=== PATIENT | male | born 1955 | race Caucasian/White ===

== ENCOUNTER → 2021-04-19 08:52 | Outpatient (CLI) | payer MEDICARE, OTHER, SELFPAY ==
[2021-04-19 19:35] LABS: Add Manual Diff / Slide Review NO; Basophils Absolute Auto 0 /uL (0-100); Basophils Percent Auto 0.3 % (0-2); Eosinophils Absolute Auto 200 /uL (0-450); Eosinophils Percent Auto 2.4 % (2-4); Hematocrit 42.5 % (41-53); Hemoglobin 14.2 g/dL (13.5-17.5); Lymphocytes Absolute Auto 1700 /uL (1100-4500); Lymphocytes Percent Auto 22.5 % (25-40); Mean Corpuscular HGB Conc 33.5 % (30-36); Mean Corpuscular Hemoglobin 30.9 PG (26-34); Mean Corpuscular Volume 92.2 fL (80-100); Monocytes Absolute Auto 700 /uL (0-900); Monocytes Percent Auto 9.2 % (3-14); Neutrophils Absolute Auto 4900 /uL (1500-7000); Neutrophils Percent Auto 65.6 % (50-75); Platelet Count 307 X10^3/uL (150-400); Red Blood Cell Count 4.61 X10^6/uL (4.5-5.9); Red Cell Distribution Width 13.2 % (11.6-14.8); White Blood Cell Count 7.5 X10^3/uL (4.5-11.0)
[2021-04-19 19:40] LABS: Hemoglobin A1C% w Est Avg Glu 6.7 % (4.0-6.0)
[2021-04-19 19:53] LABS: Alanine Aminotransferase 38 IU/L (<50); Albumin 4.2 g/dL (3.5-5.0); Albumin Globulin Ratio 1.4 (1.0-2.8); Alkaline Phosphatase 62 U/L (38-126); Aspartate Aminotransferase 44 IU/L (17-59); BUN Creatinine Ratio 31.3 (6-22); Bilirubin Total 0.8 mg/dL (0.2-1.3); Blood Urea Nitrogen 26 mg/dL (9-20); Calcium 9.7 mg/dL (8.4-10.2); Carbon Dioxide 25 mmol/L (22-32); Chloride 101 mmol/L (98-107); Cholesterol 101 mg/dL (140-199); Estimated Glomerular Filt Rate > 60.0 mL/min (>60); Globulin 3.1 g/dL (1.7-4.1); Glucose 115 mg/dL (80-110); HDL Cholesterol 27 mg/dL (40-60); HEMOLYSIS 22 (0-50); LDL Cholesterol Calculated 41 mg/dL (<100); Sodium 136 mmol/L (137-145); Total Protein 7.3 g/dL (6.3-8.2); Triglycerides 163 mg/dL (35-150)
== END ==
PROVIDERS: PCP Family Medicine; Visit Provider Family Medicine
DX: E78.5 Hyperlipidemia, unspecified (principal); Z86.73 Personal history of transient ischemic attack (TIA), and cerebral infarction without residual deficits; R73.01 Impaired fasting glucose; I10 Essential (primary) hypertension
CPT/HCPCS: 80053; 80061; 83036; 85025

== ENCOUNTER 2025-07-13 10:16 | Inpatient (IN) | payer MEDICARE, OTHER, SELFPAY ==
[2025-07-13] VITALS (20 sets, daily range): BP systolic 96–131; BP diastolic 51–105; PULSE 85–93; RESP 18–36; TEMP 36.7–37; O2SAT 95–99; BMI 34.4
--- NOTE | 2025-07-13 10:23 | DI.CT.S_ITS ---
PROCEDURE: CT CHEST ABD PEL W CON INDICATIONS: Fall/trauma TECHNIQUE: After the administration of intravenous contrast, 5 mm thick sections acquired from the lung apices to the symphysis. 2.5 mm thick coronal and sagittal reformats were acquired. Additional 7 mm thick coronal maximum intensity projection (MIP) reformats acquired through the lungs. Optional 10-minute delayed imaging may be performed from the kidneys to the bladder. For radiation dose reduction, the following was used: automated exposure control, adjustment of mA and/or kV according to patient size. COMPARISON: None. FINDINGS: Image quality: Diagnostic. CHEST: Lower Neck: No enlarged lymph nodes. Thyroid: No thyroid nodules which require sonographic evaluation. Axillae: No enlarged lymph nodes. Chest Wall: No subcutaneous gas. Lungs and Pleura: No pulmonary contusions or lacerations. No acute airspace opacities. No pneumothorax or hemothorax. Mediastinum: No mediastinal hematomas. Heart size is normal. No pericardial effusion. Thoracic aorta and pulmonary arteries demonstrate normal size and enhancement. No mediastinal or hilar adenopathy. Esophagus is normal in caliber. No hiatal hernia. ABDOMEN: Liver: No lacerations. Gallbladder: No radiopaque gallstones or wall thickening. Biliary ducts: No biliary dilation. Pancreas: Homogenous enhancement. Spleen: Homogenous enhancement without laceration or hematoma. Adrenal Glands: Symmetric enhancement. Kidneys and Ureters: Symmetric enhancement. No hydronephrosis. No solid mass. No complex renal cystic lesion which requires follow up. Stomach and Bowel: Normal colonic caliber, without significant wall thickening. Peritoneum: No abnormal intraperitoneal fluid. No free air. Ventral Wall: No hernia. Abdominal Nodes: No retroperitoneal or mesenteric adenopathy by size criteria. Vessels: Aorta and inferior vena cava are normal in size. PELVIS: Pelvic Organs: Unremarkable. Bladder: Normal thickness. Pelvic Nodes: No enlarged lymph nodes. Miscellaneous: No inguinal hernias are seen. No evidence of trauma or inflammation to the right lower quadrant area of reported pain. Bones: Pelvic ring and hip joints appear intact. No displaced rib fractures. IMPRESSION: No evidence of traumatic injury to the chest, abdomen or pelvis. Dictated by: Artem Pimentel M.D. on 07/13/2025 at 11:53 Approved by: Artem Pimentel M.D. on 07/13/2025 at 11:56
--- NOTE | 2025-07-13 10:26 | EKG_ITS ---
[address] [address] Test Date: 2025-07-13 Pat Name: Wan Kenney Department: Room: A Gender: Male Entertainment Manager: EDDIE : [id number] Requested By: Order Number: [id number] Reading MD: Estevan Mason MD Measurements Intervals [place] Rate: 92 P: 35 [place]: 164 QRS: -5 QRSD: 82 T: 18 QT: 348 QTc: 430 Interpretive Statements Normal sinus rhythm Electronically Signed On 07-13-2025 16:27:18 PDT by Estevan Mason MD
--- NOTE | 2025-07-13 10:26 | ED.FALL ---
HPI - Fall General Chief Complaint: Trauma Stated Complaint: Fall last night,unknown downtime Time Seen by Provider: 07/13/25 10:23 History of Present Illness HPI Narrative: Modified trauma activated Primary survey A -airway intact B -equal breath sounds C -strong heart sounds D -no gross deformity E -patient in gown Patient log rolled in order to do examination of the spine and back. Patient has no neck pain. Denies any neck pain Blood sugar 106 by EMS. Patient brought in from [facility]. Last well known uncertain. Patient has history of stroke. Patient is awake alert oriented self and date of and year only. 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 Neighbor found him at his home. Ambulance brought him to local [facility] and was taken by boat to EMS waiting for him at the [facility]. patient has bruising extends related through extremities abdomen arms and legs. Denies any pain but when pressing on lower abdomen has tenderness. His brother is on way here for more history and information. Related Data Home Medications ?Medication ?Instructions ?Recorded ?Confirmed clopidogrel 75 mg tablet 75 mg PO DAILY 03/28/21 07/13/25 lisinopril 20 1 tab PO DAILY 03/28/21 07/13/25 mg-hydrochlorothiazide 12.5 mg tablet metformin 1,000 mg tablet 1,000 mg PO BID 03/28/21 07/13/25 simvastatin 40 mg tablet 40 mg PO BEDTIME 03/28/21 07/13/25 omeprazole PO DAILY 07/13/25 pioglitazone 30 mg tablet 30 mg PO DAILY 07/13/25 07/13/25 semaglutide 14 mg tablet (Rybelsus) 14 mg PO DAILY 07/13/25 07/13/25 Allergies Allergy/AdvReac Type Severity Reaction Status Date / Time No Known Drug Allergies Allergy Verified 03/29/21 12:45 Review of Systems Review of Systems Narrative: GENERAL: Negative chills, fatigue, malaise, fever, sweats. HEENT: Negative sinus pain, ear pain, sore throat RESPIRATORY: Negative dyspnea, cough CARDIOVASCULAR: Negative chest pain, palpitations GASTROINTESTINAL: Negative vomiting, nausea, abdominal pain : Negative dysuria, frequency, hematuria MUSCULOSKELETAL: Negative muscle or bony pain SKIN: Negative rash, skin lesions, positive skin injuries NEUROLOGIC: Negative weakness, numbness ROS Unobtainable: All systems reviewed & are unremarkable except as noted in HPI and below Patient History Medical History (Updated 07/13/25 @ 19:00 by Louie Yates MD) Cognitive changes History of CVA (cerebrovascular accident) Hyperlipidemia HTN (hypertension) Impaired fasting glucose Social History household members: none Smoking Status: Former smoker alcohol intake: former Exam Narrative Exam Narrative: GENERAL: in no distress, not toxic not dyspneic HEAD: Normocephalic. Nontender face and skull. EYES: Pupils equal round ENT: Mucous membranes moist. NECK: Trachea midline. Patient log rolled, no midline tenderness step-off of the cervical thoracic or lumbar spine. No skin injury seen on the back. CARDIOVASCULAR: Regular rate and rhythm RESPIRATORY: Clear to auscultation. Breath sounds equal bilaterally. No wheezes, rales, or rhonchi. GASTROINTESTINAL: Abdomen soft, non-tender EXTREMITIES: No gross deformities. Nontender bilateral shoulders elbows wrists pelvis hips knees and ankles. No gross deformities. BACK: No flank tenderness. NEURO: AOx4. Clear speech SKIN: Warm and dry, multiple areas of dirt and abrasions and scabbing arms legs abdomen chest PSYCH: Not anxious, is cooperative Initial Vital Signs Initial Vital Signs: Vital Signs Temperature 98.6 F 07/13/25 10:04 Pulse Rate 89 07/13/25 10:04 Respiratory Rate 22 07/13/25 10:04 Blood Pressure 121/77 07/13/25 10:04 Pulse Oximetry 98 07/13/25 10:04 Oxygen Delivery Method Room Air 07/13/25 10:04 Course Orders Ordered: Acetaminophen (Acetaminophen 325 Mg Tablet) 975 mg PO Q8H PRN PRN Reason: Pain, Mild (1-3) or fever Last Admin: 07/14/25 10:38 Dose: 975 mg Documented By: MIRZA Clopidogrel Bisulfate (Clopidogrel 75 Mg Tablet) 75 mg PO DAILY ETIENNE Last Admin: 07/14/25 09:18 Dose: 75 mg Documented By: MIRZA Cyclobenzaprine HCl (Cyclobenzaprine 10 Mg Tablet) 5 mg PO Q8HR PRN PRN Reason: Spasms Last Admin: 07/14/25 10:38 Dose: 5 mg Documented By: Admin: 07/13/25 21:56 Dose: 5 mg Documented By: [facility] Enoxaparin Sodium (Enoxaparin 40 Mg/0.4 Ml Syringe) 40 mg SUBCUT DAILY [facility] Last Admin: 07/14/25 09:18 Dose: 40 mg Documented By: MIRZA Hydrochlorothiazide (Hydrochlorothiazide 25 Mg Tablet) 12.5 mg PO DAILY [facility] Last Admin: 07/14/25 09:18 Dose: 12.5 mg Documented By: MIRZA Sodium Chloride (Normal Saline 0.9%) 1,000 mls @ 175 mls/hr IV CONT [facility] Last Admin: 07/14/25 10:39 Dose: 175 mls/hr Documented By: Infusion: 07/14/25 09:51 Dose: Infused Documented By: Admin: 07/14/25 04:08 Dose: 175 mls/hr Documented By: Infusion: 07/14/25 04:08 Dose: Infused Documented By: Admin: 07/13/25 22:52 Dose: 175 mls/hr Documented By: Infusion: 07/13/25 22:31 Dose: Infused Documented By: Admin: 07/13/25 16:48 Dose: 175 mls/hr Documented By: RIA Insulin Human Lispro (Insulin Lispro 100 Unit/Ml 3ml Vial) 0 unit SUBCUT ACHS [facility]; Protocol Last Admin: 07/14/25 09:09 Dose: Not Given Documented By: Admin: 07/13/25 21:18 Dose: Not Given Documented By: BRIDGETTE Lisinopril (Lisinopril 20 Mg Tablet) 20 mg PO DAILY [facility] On Hold: 07/14/25 09:00 Resume: 07/17/25 17:00 Naloxone HCl (Naloxone 0.4 Mg/Ml Vial) 0.2 mg IV Q2MIN PRN PRN Reason: Opiate Reversal Ondansetron HCl (Ondansetron 4 Mg/2 Ml Inj) 4 mg IV Q8HR PRN PRN Reason: Nausea And Vomiting Sodium Chloride (Sodium Chloride 0.9% Flush) 10 ml IV BID [facility] Last Admin: 07/14/25 09:18 Dose: 10 ml Documented By: MIRZA Sodium Chloride (Sodium Chloride 0.9% Flush) 10 ml IV PRN PRN PRN Reason: Flush Discontinued Medications Acetaminophen (Acetaminophen 325 Mg Tablet) 650 mg PO Q6H PRN PRN Reason: Pain, Mild (1-3) Last Admin: 07/13/25 21:39 Dose: 650 mg Documented By: BRIDGETTE Diazepam (Diazepam 10 Mg/2 Ml Syringe) 2 mg IV NOW ONE Stop: 07/13/25 14:03 Last Admin: 07/13/25 14:13 Dose: 2 mg Documented By: JOHANNA Diphtheria/Tetanus/Acell Pertussis (Tet,Diph,Pertuss(Acell),Vac/Pf 0.5 Ml Syringe) 0.5 ml IM .ONCE ONE Stop: 07/13/25 10:32 Last Admin: 07/13/25 14:05 Dose: 0.5 ml Documented By: JOHANNA Enoxaparin Sodium (Enoxaparin 30 Mg/0.3 Ml Syringe) 30 mg SUBCUT DAILY ETIENNE Sodium Chloride (Normal Saline 0.9%) 1,000 mls @ 1,000 mls/hr IV BOLUS ONE Stop: 07/13/25 11:22 Last Infusion: 07/13/25 13:57 Dose: Infused Documented By: Admin: 07/13/25 12:01 Dose: 1,000 mls/hr Documented By: JOHANNA Piperacillin Sod/Tazobactam (Sod 4.5 gm/ Sodium Chloride) 100 mls @ 200 mls/hr IV NOW ONE Stop: 07/13/25 11:37 Last Infusion: 07/13/25 12:44 Dose: Infused Documented By: Admin: 07/13/25 12:01 Dose: 200 mls/hr Documented By: JOHANNA Sodium Chloride (Normal Saline 0.9%) 1,000 mls @ 1,000 mls/hr IV BOLUS ONE Stop: 07/13/25 12:41 Last Admin: 07/13/25 13:57 Dose: 1,000 mls/hr Documented By: JOHANNA Lidocaine HCl (Lidocaine 2% (Glydo) 6 Ml Gel) 6 ml TOP NOW ONE Stop: 07/13/25 12:17 Last Admin: 07/13/25 12:19 Dose: 6 ml Documented By: COLE Vital Signs Vital signs: Vital Signs - 8 hr 07/13/25 10:04 07/13/25 10:28 07/13/25 10:28 Temperature 98.6 F Pulse Rate 89 92 H Respiratory Rate 22 26 H Blood Pressure 121/77 121/77 Pulse Oximetry 98 97 Oxygen Delivery Method Room Air 07/13/25 10:30 07/13/25 11:00 07/13/25 11:21 Temperature Pulse Rate 92 H 93 H 93 H Respiratory Rate 28 H 26 H 25 H Blood Pressure Pulse Oximetry 98 99 98 Oxygen Delivery Method 07/13/25 11:21 07/13/25 11:30 07/13/25 11:30 Temperature Pulse Rate 92 H Respiratory Rate 26 H Blood Pressure 116/70 102/66 Pulse Oximetry 97 Oxygen Delivery Method 07/13/25 12:00 07/13/25 12:00 07/13/25 12:30 Temperature Pulse Rate 89 93 H Respiratory Rate 28 H 30 H Blood Pressure 108/65 Pulse Oximetry 98 98 Oxygen Delivery Method 07/13/25 12:43 07/13/25 12:43 07/13/25 13:00 Temperature Pulse Rate 93 H 93 H Respiratory Rate 27 H 27 H Blood Pressure 127/83 Pulse Oximetry 96 99 Oxygen Delivery Method 07/13/25 13:00 07/13/25 13:30 07/13/25 13:30 Temperature Pulse Rate 89 Respiratory Rate 30 H Blood Pressure 128/61 131/65 Pulse Oximetry 98 Oxygen Delivery Method 07/13/25 13:53 07/13/25 13:53 Temperature Pulse Rate 93 H Respiratory Rate 29 H Blood Pressure 124/104 H Pulse Oximetry 97 Oxygen Delivery Method MDM - Fall Lab Data 07/14/25 06:20 07/14/25 06:20 Labs: Lab Results 07/13/25 07/13/25 07/13/25 Range/Units 10:45 12:48 12:48 WBC 21.7 H (4.5-11.0) X10^3/uL RBC 4.38 L (4.5-5.9) X10^6/uL Hgb 13.2 L (13.5-17.5) g/dL Hct 39.7 L (41-53) % MCV 90.9 (80-100) fL MCH 30.2 (26-34) PG MCHC 33.2 (30-36) % RDW 13.6 (11.6-14.8) % Plt Count 326 (150-400) X10^3/uL Neut % (Auto) 86.6 H (50-75) % Lymph % (Auto) 5.8 L (25-40) % Holt % (Auto) 7.4 (3-14) % Eos % (Auto) 0.0 L (2-4) % Baso % (Auto) 0.2 (0-2) % Neut # (Auto) 19115 H (9536-0350) /uL Lymph # (Auto) 1300 (5237-8684) /uL Holt # (Auto) 1600 H (0-900) /uL Eos # (Auto) 0 (0-450) /uL Baso # (Auto) 0 (0-100) /uL PT 14.9 H (9.4-12.5) SECONDS INR 1.3 (0.9-1.3) APTT 37 H (25.1-36.5) SECONDS Sodium 139 (137-145) mmol/L Potassium 5.4 H (3.4-5.1) mmol/L Chloride 103 (98-107) mmol/L Carbon Dioxide 13 L (22-32) mmol/L BUN 43 H (9-20) mg/dL Creatinine 2.01 H (0.66-1.25) mg/dL Estimated GFR 35 L (>60) mL/min BUN/Creatinine Ratio 21.4 (6-22) Glucose 125 H (70-99) mg/dL Lactate 3.0 H (0.7-2.1) mmol/L Calcium 9.5 (8.4-10.2) mg/dL Total Bilirubin 1.0 (0.2-1.3) mg/dL AST 167 H (17-59) IU/L ALT 70 H (<50) IU/L Alkaline Phosphatase 84 (38-126) U/L Total Creatine Kinase 77046 H (55-170) U/L Troponin I 0.280 H* (0.01-0.034) ng/mL Total Protein 8.0 (6.3-8.2) g/dL Albumin 4.9 (3.5-5.0) g/dL Globulin 3.1 (1.7-4.1) g/dL Albumin/Globulin Ratio 1.6 (1.0-2.8) Procalcitonin 0.691 H (<0.5) ng/mL Urine Color Yellow Urine Appearance Sl cloudy Urine pH 5.5 Normal (4.5-8.0) Ur Specific Jber 1.025 (1.000-1.035) Urine Protein 1+ H (Negative) Urine Glucose (UA) Negative (Negative) g/dL Urine Ketones 2+ H (NEGATIVE) Urine Occult Blood 3+ H (Negative) Urine Nitrate Negative (Negative) Urine Bilirubin Negative (NEGATIVE) Urine Urobilinogen 0.2 (0.2) E.U./dL Ur Leukocyte Esterase Negative (NEGATIVE) Urine RBC 1-5/hpf (0-5/HPF) Urine WBC 0-1/hpf (0-5/HPF) Ur Squamous Epith Cells None seen (0-5/HPF) Amorphous Sediment 2+ Urine Bacteria Occasional (0-1) (None) Hyaline Casts 1-5/lpf (None) Ur Culture Indicated? Cult not indicated Vol Urine Centrifuged 10ml (spun) U Opiates 300ng/mL cut Negative (Negative) Ur Oxycodone Screen Negative (Negative) Urine Methadone Screen Negative (Negative) Ur Barbiturates Screen Negative (Negative) U Tricyclic Antidepress Negative (Negative) Ur Phencyclidine Scrn Negative (Negative) Ur Amphetamines Screen Negative (Negative) U Methamphetamines Scrn Negative (Negative) Ur MDMA Scrn (Ecstasy) Negative (Negative) U Benzodiazepines Scrn Negative (Negative) Urine Cocaine Screen Negative (Negative) U Marijuana (THC) Screen Negative (Negative) Urine Specific Jber Normal (Normal) Ethyl Alcohol < 10 (<10) mg/dL Ur Creatinine Normal (Normal) 07/13/25 07/13/25 Range/Units 13:31 13:35 WBC (4.5-11.0) X10^3/uL RBC (4.5-5.9) X10^6/uL Hgb (13.5-17.5) g/dL Hct (41-53) % MCV (80-100) fL MCH (26-34) PG MCHC (30-36) % RDW (11.6-14.8) % Plt Count (150-400) X10^3/uL Neut % (Auto) (50-75) % Lymph % (Auto) (25-40) % Holt % (Auto) (3-14) % Eos % (Auto) (2-4) % Baso % (Auto) (0-2) % Neut # (Auto) (7775-3390) /uL Lymph # (Auto) (8591-0951) /uL Holt # (Auto) (0-900) /uL Eos # (Auto) (0-450) /uL Baso # (Auto) (0-100) /uL PT (9.4-12.5) SECONDS INR (0.9-1.3) APTT (25.1-36.5) SECONDS Sodium 139 (137-145) mmol/L Potassium 5.0 (3.4-5.1) mmol/L Chloride 107 (98-107) mmol/L Carbon Dioxide 12 L (22-32) mmol/L BUN 41 H (9-20) mg/dL Creatinine 1.78 H (0.66-1.25) mg/dL Estimated GFR 40 L (>60) mL/min BUN/Creatinine Ratio 23.0 H (6-22) Glucose 112 H (70-99) mg/dL Lactate 1.2 (0.7-2.1) mmol/L Calcium 8.7 (8.4-10.2) mg/dL Total Bilirubin 0.9 (0.2-1.3) mg/dL AST 160 H (17-59) IU/L ALT 59 H (<50) IU/L Alkaline Phosphatase 74 (38-126) U/L Total Creatine Kinase (55-170) U/L Troponin I 0.259 H* (0.01-0.034) ng/mL Total Protein 6.9 (6.3-8.2) g/dL Albumin 4.1 (3.5-5.0) g/dL Globulin 2.8 (1.7-4.1) g/dL Albumin/Globulin Ratio 1.5 (1.0-2.8) Procalcitonin (<0.5) ng/mL Urine Color Urine Appearance Urine pH (4.5-8.0) Ur Specific Jber (1.000-1.035) Urine Protein (Negative) Urine Glucose (UA) (Negative) g/dL Urine Ketones (NEGATIVE) Urine Occult Blood (Negative) Urine Nitrate (Negative) Urine Bilirubin (NEGATIVE) Urine Urobilinogen (0.2) E.U./dL Ur Leukocyte Esterase (NEGATIVE) Urine RBC (0-5/HPF) Urine WBC (0-5/HPF) Ur Squamous Epith Cells (0-5/HPF) Amorphous Sediment Urine Bacteria (None) Hyaline Casts (None) Ur Culture Indicated? Vol Urine Centrifuged U Opiates 300ng/mL cut (Negative) Ur Oxycodone Screen (Negative) Urine Methadone Screen (Negative) Ur Barbiturates Screen (Negative) U Tricyclic Antidepress (Negative) Ur Phencyclidine Scrn (Negative) Ur Amphetamines Screen (Negative) U Methamphetamines Scrn (Negative) Ur MDMA Scrn (Ecstasy) (Negative) U Benzodiazepines Scrn (Negative) Urine Cocaine Screen (Negative) U Marijuana (THC) Screen (Negative) Urine Specific Jber (Normal) Ethyl Alcohol (<10) mg/dL Ur Creatinine (Normal) Imaging Data CT scan - head: Radiologist's Impression: [address] [address] [address] Scan Report Signed Patient: Wan Kenney MR#: [id number] : 1955 Acct:[id number] Age/Sex: 70 / M Date of Service: 07/13/25 Loc: ED Accession Number: [id number] Procedure: CT head/brain wo con Ordering Provider: Ulises Miles MD PROCEDURE: CT HEAD/BRAIN WO CON INDICATIONS: Altered mental status TECHNIQUE: Noncontrast 4.5 mm thick angled axial sections acquired from the foramen magnum to the vertex, with coronal and sagittal reformats. For radiation dose reduction, the following was used: automated exposure control, adjustment of mA and/or kV according to patient size. COMPARISON: None. FINDINGS: Image quality: Diagnostic. CSF spaces: Basal cisterns are patent. No extra-axial fluid collections. The ventricles are symmetric in size and shape. Brain: No intracranial bleeds or mass effect. There is cerebral volume loss, with resultant ventricular and sulcal prominence. There are periventricular and deep white matter chronic small vessel ischemic changes. Additionally bilateral areas of what appears to be encephalomalacia are present at the posterior parietal cortex, and underlying subcortical white matter. This is slightly greater on the right than the left, and a comparison study is not available to establish chronicity. There is intracranial internal carotid artery atherosclerosis. Skull and face: Calvarium and visualized facial bones appear intact, without suspicious lesions. Sinuses: Visualized sinuses and mastoids are clear. IMPRESSION: Presumed chronic prior strokes involving the posterior parietal cortex and subcortical white matter with encephalomalacia, mild in overall severity, right greater than left. No comparison head CT available for review-please correlate clinically. Additionally, MR scanning can assist in detecting superimposed acute ischemic injury in this clinical circumstance. Dictated by: Artem Pimentel M.D. on 07/13/2025 at 11:33 Approved by: Artem Pimentel M.D. on 07/13/2025 at 11:35 CTA - brain/neck: Radiologist's Impression: [address] [address] [address] Scan Report Signed Patient: Wan Kenney MR#: [id number] : 1955 Acct:[id number] Age/Sex: 70 / M Date of Service: 07/13/25 Loc: ED Accession Number: [id number] Procedure: CT angio head and neck Ordering Provider: Ulises Miles MD PROCEDURE: CT ANGIO HEAD AND NECK INDICATIONS: Altered mental status TECHNIQUE: After the administration of intravenous contrast, 1 mm thick sections acquired from the aortic arch through the [place] of [place]. 3-dimensional giweztp-gloiejaxf-niaspcedlo (MIP) and/or volume rendering reformats were acquired of the central intracranial vasculature and neck separately. For radiation dose reduction, the following was used: automated exposure control, adjustment of mA and/or kV according to patient size. COMPARISON: None. FINDINGS: Image quality: Diagnostic. Cerebral CT Angiogram: Internal carotid arteries: No acute findings. Intracranial ICA are patent with no significant stenosis. No occlusion. No aneurysm. Anterior cerebral arteries: Unremarkable. No significant stenosis. No occlusion. No aneurysm. Middle cerebral arteries: Unremarkable. No significant stenosis. No occlusion. No aneurysm. Posterior cerebral arteries: Unremarkable. No significant stenosis. No occlusion. No aneurysm. Basilar artery: Unremarkable. No significant stenosis. No occlusion. No aneurysm. Vertebral arteries: Unremarkable as visualized. Dural venous sinuses: Unremarkable given phase of enhancement. Other: Arterial phase appearance of the brain parenchyma is compared to the noncontrast head CT also performed same day. Again noted are areas of what appears to be chronic encephalomalacia greater on the right than the left at the posterior parietal lobe with subtle volume loss rather than mass effect. Neck CT Angiogram: Internal carotid arteries: Unremarkable. No significant stenosis. No dissection or occlusion. Common carotid arteries: Unremarkable. No significant stenosis. No dissection or occlusion. External carotid arteries: Unremarkable. No occlusion. Vertebral arteries: Unremarkable. No significant stenosis. No dissection or occlusion. Aortic Arch and Mediastinum: Partially visualized aortic arch unremarkable without evidence of aneurysm. Origins of the great vessels unremarkable. Other: Arterial phase soft tissues of the neck and chest are unremarkable. IMPRESSION: No significant intracranial arterial abnormality is seen. No significant abnormality is seen within the arteries of the neck. Right greater than left carotid bifurcation calcification noted without significant stenosis as a result. Apparent encephalomalacia posterior parietal brain parenchyma at the cortex and subcortical white matter, most consistent with prior ischemic injury in those areas. Please correlate clinically. MR scanning may be warranted to ensure no superimposed acute ischemic injury is present. No trauma found. Any quantitative measurements of stenosis were performed using NASCET criteria. Dictated by: Artem Pimentel M.D. on 07/13/2025 at 11:36 Approved by: Artem Pimentel M.D. on 07/13/2025 at 11:43 CT chest abdomen and pelvis: Radiologist's Impression: [address] [address] [address] Scan Report Signed Patient: Wan Kenney MR#: [id number] : 1955 Acct:[id number] Age/Sex: 70 / M Date of Service: 07/13/25 Loc: ED Accession Number: [id number] Procedure: CT chest abd pel w con Ordering Provider: Ulises Miles MD PROCEDURE: CT CHEST ABD PEL W CON INDICATIONS: Fall/trauma TECHNIQUE: After the administration of intravenous contrast, 5 mm thick sections acquired from the lung apices to the symphysis. 2.5 mm thick coronal and sagittal reformats were acquired. Additional 7 mm thick coronal maximum intensity projection (MIP) reformats acquired through the lungs. Optional 10-minute delayed imaging may be performed from the kidneys to the bladder. For radiation dose reduction, the following was used: automated exposure control, adjustment of mA and/or kV according to patient size. COMPARISON: None. FINDINGS: Image quality: Diagnostic. CHEST: Lower Neck: No enlarged lymph nodes. Thyroid: No thyroid nodules which require sonographic evaluation. Axillae: No enlarged lymph nodes. Chest Wall: No subcutaneous gas. Lungs and Pleura: No pulmonary contusions or lacerations. No acute airspace opacities. No pneumothorax or hemothorax. Mediastinum: No mediastinal hematomas. Heart size is normal. No pericardial effusion. Thoracic aorta and pulmonary arteries demonstrate normal size and enhancement. No mediastinal or hilar adenopathy. Esophagus is normal in caliber. No hiatal hernia. ABDOMEN: Liver: No lacerations. Gallbladder: No radiopaque gallstones or wall thickening. Biliary ducts: No biliary dilation. Pancreas: Homogenous enhancement. Spleen: Homogenous enhancement without laceration or hematoma. Adrenal Glands: Symmetric enhancement. Kidneys and Ureters: Symmetric enhancement. No hydronephrosis. No solid mass. No complex renal cystic lesion which requires follow up. Stomach and Bowel: Normal colonic caliber, without significant wall thickening. Peritoneum: No abnormal intraperitoneal fluid. No free air. Ventral Wall: No hernia. Abdominal Nodes: No retroperitoneal or mesenteric adenopathy by size criteria. Vessels: Aorta and inferior vena cava are normal in size. PELVIS: Pelvic Organs: Unremarkable. Bladder: Normal thickness. Pelvic Nodes: No enlarged lymph nodes. Miscellaneous: No inguinal hernias are seen. No evidence of trauma or inflammation to the right lower quadrant area of reported pain. Bones: Pelvic ring and hip joints appear intact. No displaced rib fractures. IMPRESSION: No evidence of traumatic injury to the chest, abdomen or pelvis. Dictated by: Artem Pimentel M.D. on 07/13/2025 at 11:53 Approved by: Artem Pimentel M.D. on 07/13/2025 at 11:56 [facility] Narrative Medical decision making narrative: Blood sugar 106 by EMS. Patient brought in from [facility]. Last well known uncertain. Patient has history of stroke. Patient is awake alert oriented self and date of and year only. 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 Neighbor found him at his home. Ambulance brought him to local [facility] and was taken by boat to EMS waiting for him at the [facility]. patient has bruising extends related through extremities abdomen arms and legs. Denies any pain but when pressing on lower abdomen has tenderness. His brother is on way here for more history and information. MDM After history and exam, CT head CT angio head and neck CT cervical spine CT chest abdomen pelvis EKG CBC CMP urinalysis troponin alcohol level social work consult Differential considered: Includes but not limited to intracranial bleed multiple contusions intra-abdominal bleed syncope stroke NH dehydration dementia rhabdomyolysis Medical records reviewed: No recent visit for this complaint Lab Test results independently reviewed as above. Pertinent findings: WBC 21.7 hemoglobin 13.2 hematocrit 39.7 INR 1.3 sodium 139 potassium 5.4 BUN 43 creatinine 2.01 GFR 35 glucose 125 Troponin 0.28 Repeat renal function improved after 2 L normal saline. Patient has 300 mL urine voided into [place] bag Independently reviewed EKG normal sinus rhythm normal EKG rate 92 Imaging studies independently reviewed: CT head no acute finding Consultations: 11:41 a.m.. Spoke with Cardiology Dr Wolf, troponin likely from rhabdo. Would repeat troponin 2 hours. During admission would need echocardiogram. Give IV fluids at this time, renal function reviewed. No heparin at this time. 2:[address] Yates, hospitalist, who will admit patient Re-evaluations: 11:30 a.m.. Brother at bedside. He is the [id number]. Patient does not have DNR DNI orders. Patient is full code. Patient at baseline according to brother with short-term memory unable to recall very much in short-term. He spoke with patient around 6:00 p.m. last night and he was carrying items on his patio/deck. He called at 8:00 p.m. and there was no answer. However 8:00 a.m. this morning he received call from paramedics that he was found outside and being transferred to [facility] Discussion: Appropriate for admission for IV hydration/rhabdomyolysis. Cardiology service was contacted regarding troponin likely due to rhabdomyolysis. Family/brother has been involved with care. Hospitalist will admit patient. Leukocytosis likely due to dehydration. However, Zosyn was started. Diagnosis: Acute renal injury leukocytosis elevated troponin Discharge Plan Departure Patient Disposition: Admitted as Observation Clinical Impression: Acute kidney injury Rhabdomyolysis Qualifiers: Rhabdomyolysis type: non-traumatic Qualified Code(s): M62.82 - Rhabdomyolysis Admit Date/Time: 07/13/25 14:20 Admit Provider: Louie Yates
[2025-07-13 10:48] LABS: Add Manual Diff / Slide Review NO; Hematocrit 39.7 % (41-53); Hemoglobin 13.2 g/dL (13.5-17.5); Lymphocytes Absolute Auto 1300 /uL (1100-4500); Mean Corpuscular HGB Conc 33.2 % (30-36); Mean Corpuscular Hemoglobin 30.2 PG (26-34); Mean Corpuscular Volume 90.9 fL (80-100); Platelet Count 326 X10^3/uL (150-400)
[2025-07-13 10:56] LABS: INR 1.3 (0.9-1.3); Prothrombin Time 14.9 SECONDS (9.4-12.5)
[2025-07-13 10:59] LABS: PTT Partial Thromboplastin Tim 37 SECONDS (25.1-36.5)
[2025-07-13 11:00] LABS: Alanine Aminotransferase 70 IU/L (<50); Albumin 4.9 g/dL (3.5-5.0); Albumin Globulin Ratio 1.6 (1.0-2.8); Alkaline Phosphatase 84 U/L (38-126); Blood Urea Nitrogen 43 mg/dL (9-20); Calcium 9.5 mg/dL (8.4-10.2); Carbon Dioxide 13 mmol/L (22-32); Chloride 103 mmol/L (98-107); Estimated Glomerular Filt Rate 35 mL/min (>60); Ethanol (ETOH) < 10 mg/dL (<10); Globulin 3.1 g/dL (1.7-4.1); Glucose 125 mg/dL (70-99); HEMOLYSIS < 15 (0-50); Sodium 139 mmol/L (137-145); Total Protein 8.0 g/dL (6.3-8.2)
[2025-07-13 11:24] LABS: Potassium 5.4 mmol/L (3.4-5.1)
[2025-07-13 11:28] LABS: Troponin I 0.280 ng/mL (0.01-0.034)
[2025-07-13 11:56] LABS: Creatine Kinase 11790 U/L (55-170)
[2025-07-13] MEDS: SODIUM CHLORIDE 0.9% 1,000 ML 1000 ML IV ×2 (12:01→13:57)
[2025-07-13] MEDS: PIPERACILLIN/TAZO 4.5 GM in SODIUM CHLORIDE 0.9% 100 ML IV (12:01)
[2025-07-13 12:02] LABS: Lactate (Lactic Acid) 3.0 mmol/L (0.7-2.1)
[2025-07-13] MEDS: LIDOCAINE 2% (GLYDO) 6 ML GEL TOP (12:19)
[2025-07-13 12:34] LABS: Procalcitonin 0.691 ng/mL (<0.5)
[2025-07-13 12:56] LABS: Appearance Urine UA SL CLOUDY; Bilirubin Urine UA NEGATIVE (NEGATIVE); Color Urine UA YELLOW; Glucose Urine UA NEGATIVE (Negative); Ketones Urine UA 2+ (NEGATIVE); Leukocyte Esterase Urine UA NEGATIVE (NEGATIVE); Nitrite Urine UA NEGATIVE (Negative); Occult Blood Urine UA 3+ (Negative); Protein Urine UA 1+ (Negative); Specific Gravity Urine UA 1.025 (1.000-1.035); Urobilinogen Urine UA 0.2 E.U./dL (0.2); pH Urine UA 5.5 (4.5-8.0)
[2025-07-13 13:04] LABS: Culture Indicated Urine Cult Not Indicated; Ur Specific Gravity Normal (Normal); Urine Tetrahydrocannabinol Negative (Negative)
[2025-07-13 13:05] LABS: UR Morphine/Opiate cutoff 300 Negative (Negative); Urine MDMA Negative (Negative); Urine Methamphetamines Negative (Negative); Urine Tricyclic Antidepressant Negative (Negative)
[2025-07-13 13:26] LABS: Reflexed Lactate in 2 Hours Y
[2025-07-13 13:53] LABS: Lactate 2HR (Lactic Acid Rflx) 1.2 mmol/L (0.7-2.1)
[2025-07-13] MEDS: TET,DIPH,PERTUSS(ACELL),VAC/PF 0.5 ML SYRINGE IM (14:05)
[2025-07-13 14:06] LABS: Alanine Aminotransferase 59 IU/L (<50); Albumin 4.1 g/dL (3.5-5.0); Albumin Globulin Ratio 1.5 (1.0-2.8); Alkaline Phosphatase 74 U/L (38-126); Blood Urea Nitrogen 41 mg/dL (9-20); Calcium 8.7 mg/dL (8.4-10.2); Carbon Dioxide 12 mmol/L (22-32); Chloride 107 mmol/L (98-107); Estimated Glomerular Filt Rate 40 mL/min (>60); Globulin 2.8 g/dL (1.7-4.1); Glucose 112 mg/dL (70-99); HEMOLYSIS < 15 (0-50); Potassium 5.0 mmol/L (3.4-5.1); Sodium 139 mmol/L (137-145); Total Protein 6.9 g/dL (6.3-8.2)
--- NOTE | 2025-07-13 14:31 | PM.HP.1 ---
History of Present Illness History of Present Illness Date Patient Seen: 07/13/25 Time Patient Seen: 17:54 Chief complaint: Fall last night,unknown downtime Narrative: This is a 70-year-old male with a history of a Diabetes Mellitus, HTN, HLD and a memory/cognitive dysfunction who presented with Rhabdomyolysis after falling in his yard and spending the night trying to get up the 4 steps to the deck. He is quite confused and apparently suffers from a cognitive/memory disorder at baseline. He thinks that he slept on the steps or in the yard. A neighbor apparently saw him crawling around the yard this morning and called for help. He thinks that he is in [place] and thinks that his brother brought him to the hospital. The CK is 11,740 and the WBC is 21.9. The Troponin of 2.28 is attributed to the Rhabdo. He can't recall any recent illness and says that he would normally be able to climb his 4 steps to the deck without any problem. A/P: Rhabdomyolysis, present on admission, active -secondary to prolonged immobilization and hypothermia. -CK 11,740 -related elevation of troponin 2.2 8 -white blood count 21.9 -IV fluids saline 175 mL/hr, follow creatinine, potassium and CK -with initial 2 L IV bolus in the ED his creatinine dropped from 2.0 down to 1.78. -potassium 5.0, follow closely Cognitive/Memory disorder, present on admission, chronic -reportedly family describes that he has a very short term memory. -CT shows: Presumed chronic prior strokes involving the posterior parietal cortex and subcortical white matter with encephalomalacia, mild in overall severity, right greater than left. Hypertension, present on admission, chronic -holding lisinopril and hydrochlorothiazide, resume when appropriate. Diabetes Mellitus, present on admissio, chronic -holding metformin, follow up blood sugars and use correctional scale insulin. DVT prevention with Enoxaparin His brother is his backup decision maker. [facility] Medical History (Updated 07/13/25 @ 19:00 by Louie Yates MD) Cognitive changes History of CVA (cerebrovascular accident) Hyperlipidemia HTN (hypertension) Impaired fasting glucose Social History household members: none Smoking Status: Former smoker alcohol intake: former Comment: His significant cognitive dysfunction limits ability to collect a surgical and family history today. Meds Home Medications and Allergies Home Medications ?Medication ?Instructions ?Recorded ?Confirmed ?Type clopidogrel 75 mg tablet 75 mg PO DAILY 03/28/21 07/13/25 History lisinopril 20 1 tab PO DAILY 03/28/21 07/13/25 History mg-hydrochlorothiazide 12.5 mg tablet metformin 1,000 mg tablet 1,000 mg PO BID 03/28/21 07/13/25 History simvastatin 40 mg tablet 40 mg PO BEDTIME 03/28/21 07/13/25 History omeprazole PO DAILY 07/13/25 History pioglitazone 30 mg tablet 30 mg PO DAILY 07/13/25 07/13/25 History semaglutide 14 mg tablet (Rybelsus) 14 mg PO DAILY 07/13/25 07/13/25 History Allergies Allergy/AdvReac Type Severity Reaction Status Date / Time No Known Drug Allergies Allergy Verified 03/29/21 12:45 Review of Systems Review of Systems Narrative: Positive for confusion, weakness, multiple bruises and prolonged cold exposure Negative for fevers, chills, sweats, coughing, chest pain, abdominal pain, nausea, vomiting, dysuria, bleeding, rashes. Exam Vital Signs (past 8 hours): - 07/13/25 10:04 07/13/25 10:28 07/13/25 10:28 Temperature 98.6 F Pulse Rate 89 92 H Respiratory Rate 22 26 H Blood Pressure 121/77 121/77 Pulse Oximetry 98 97 Oxygen Delivery Method Room Air 07/13/25 10:30 07/13/25 11:00 07/13/25 11:21 Temperature Pulse Rate 92 H 93 H 93 H Respiratory Rate 28 H 26 H 25 H Blood Pressure Pulse Oximetry 98 99 98 Oxygen Delivery Method 07/13/25 11:21 07/13/25 11:30 07/13/25 11:30 Temperature Pulse Rate 92 H Respiratory Rate 26 H Blood Pressure 116/70 102/66 Pulse Oximetry 97 Oxygen Delivery Method 07/13/25 12:00 07/13/25 12:00 07/13/25 12:30 Temperature Pulse Rate 89 93 H Respiratory Rate 28 H 30 H Blood Pressure 108/65 Pulse Oximetry 98 98 Oxygen Delivery Method 07/13/25 12:43 07/13/25 12:43 07/13/25 13:00 Temperature Pulse Rate 93 H 93 H Respiratory Rate 27 H 27 H Blood Pressure 127/83 Pulse Oximetry 96 99 Oxygen Delivery Method 07/13/25 13:00 07/13/25 13:30 07/13/25 13:30 Temperature Pulse Rate 89 Respiratory Rate 30 H Blood Pressure 128/61 131/65 Pulse Oximetry 98 Oxygen Delivery Method 07/13/25 13:53 07/13/25 13:53 Temperature Pulse Rate 93 H Respiratory Rate 29 H Blood Pressure 124/104 H Pulse Oximetry 97 Oxygen Delivery Method Oxygen Delivery Method Room Air Narrative Exam Narrative: He is alert and oriented to name but not to date or to the correct location. He confabulates and is quite tangential trying to answer questions. Pupils are equally round and reactive to light and accommodation. Extraocular muscles are intact. Sclerae are pink and nonicteric. Throat looks quite dry. No lymph nodes are felt head, neck, supraclavicular area. There is no thyromegaly. JVD is less than 6 cm. No carotid bruits are heard. Heart is regular rate and rhythm without murmur. Lungs are clear to auscultation bilaterally. Abdomen is obese. On nontender, no organomegaly, soft. Extremities have no ankle edema. Skin is notable for multiple bruises and abrasions none of which look more than superficial on his arms, forehead and lower legs. Neurologic exam the patient is quite confused with an unclear baseline. Cranial nerves 2-12 test intact. Motor function is 4/5 throughout. There is no tremor. Reflexes are symmetric. Objective Labs 07/13/25 10:45 07/13/25 13:35 Labs: Laboratory Results - last 24 hr 07/13/25 07/13/25 07/13/25 10:45 12:48 12:48 WBC 21.7 H RBC 4.38 L Hgb 13.2 L Hct 39.7 L MCV 90.9 MCH 30.2 MCHC 33.2 RDW 13.6 Plt Count 326 Neut % (Auto) 86.6 H Lymph % (Auto) 5.8 L [place] % (Auto) 7.4 Eos % (Auto) 0.0 L Baso % (Auto) 0.2 Neut # (Auto) 98038 H Lymph # (Auto) 1300 [place] # (Auto) 1600 H Eos # (Auto) 0 Baso # (Auto) 0 PT 14.9 H INR 1.3 APTT 37 H Sodium 139 Potassium 5.4 H Chloride 103 Carbon Dioxide 13 L BUN 43 H Creatinine 2.01 H Estimated GFR 35 L BUN/Creatinine Ratio 21.4 Glucose 125 H Lactate 3.0 H Calcium 9.5 Total Bilirubin 1.0 AST 167 H ALT 70 H Alkaline Phosphatase 84 Total Creatine Kinase 80202 H Troponin I 0.280 H* Total Protein 8.0 Albumin 4.9 Globulin 3.1 Albumin/Globulin Ratio 1.6 Procalcitonin 0.691 H Urine Color Yellow Urine Appearance Sl cloudy Urine pH 5.5 Normal Ur Specific [place] 1.025 Urine Protein 1+ H Urine Glucose (UA) Negative Urine Ketones 2+ H Urine Occult Blood 3+ H Urine Nitrate Negative Urine Bilirubin Negative Urine Urobilinogen 0.2 Ur Leukocyte Esterase Negative Urine RBC 1-5/hpf Urine WBC 0-1/hpf Ur Squamous Epith Cells None seen Amorphous Sediment 2+ Urine Bacteria Occasional (0-1) Hyaline Casts 1-5/lpf Ur Culture Indicated? Cult not indicated Vol Urine Centrifuged 10ml (spun) U Opiates 300ng/mL cut Negative Ur Oxycodone Screen Negative Urine Methadone Screen Negative Ur Barbiturates Screen Negative U Tricyclic Antidepress Negative Ur Phencyclidine Scrn Negative Ur Amphetamines Screen Negative U Methamphetamines Scrn Negative Ur MDMA Scrn (Ecstasy) Negative U Benzodiazepines Scrn Negative Urine Cocaine Screen Negative U Marijuana (THC) Screen Negative Urine Specific [place] Normal Ethyl Alcohol < 10 Ur Creatinine Normal 07/13/25 07/13/25 13:31 13:35 WBC RBC Hgb Hct MCV MCH MCHC RDW Plt Count Neut % (Auto) Lymph % (Auto) [place] % (Auto) Eos % (Auto) Baso % (Auto) Neut # (Auto) Lymph # (Auto) [place] # (Auto) Eos # (Auto) Baso # (Auto) PT INR APTT Sodium 139 Potassium 5.0 Chloride 107 Carbon Dioxide 12 L BUN 41 H Creatinine 1.78 H Estimated GFR 40 L BUN/Creatinine Ratio 23.0 H Glucose 112 H Lactate 1.2 Calcium 8.7 Total Bilirubin 0.9 AST 160 H ALT 59 H Alkaline Phosphatase 74 Total Creatine Kinase Troponin I Total Protein 6.9 Albumin 4.1 Globulin 2.8 Albumin/Globulin Ratio 1.5 Procalcitonin Urine Color Urine Appearance Urine pH Ur Specific [place] Urine Protein Urine Glucose (UA) Urine Ketones Urine Occult Blood Urine Nitrate Urine Bilirubin Urine Urobilinogen Ur Leukocyte Esterase Urine RBC Urine WBC Ur Squamous Epith Cells Amorphous Sediment Urine Bacteria Hyaline Casts Ur Culture Indicated? Vol Urine Centrifuged U Opiates 300ng/mL cut Ur Oxycodone Screen Urine Methadone Screen Ur Barbiturates Screen U Tricyclic Antidepress Ur Phencyclidine Scrn Ur Amphetamines Screen U Methamphetamines Scrn Ur MDMA Scrn (Ecstasy) U Benzodiazepines Scrn Urine Cocaine Screen U Marijuana (THC) Screen Urine Specific [place] Ethyl Alcohol Ur Creatinine Assessment & Plan Time-Based Coding :: [TOTAL MINUTES] spent with patient and on the chart (including review of chart, obtaining history, exam, reviewing outside data, placing orders, documenting exam and treatment plan, and counseling patient) on [DATE].
[2025-07-13 14:52] LABS: Troponin I 0.259 ng/mL (0.01-0.034)
[2025-07-13] MEDS: SODIUM CHLORIDE 0.9% 1,000 ML 175 ML IV ×2 (16:48→22:52)
--- NOTE | 2025-07-13 18:08 | CM.DANOTE ---
ED ACUPRESSURIST DCP Assessment Note: Pt is a 70yo male, resident of [facility], is admitted for ANNIKA, elevated troponin. Pt lives in a house alone (mailing address is a PO box but home address is: [address] [place] [id number]). Pt's Primary Care Provider is Dr. Ulises Mehta and insurance is Medicare and [employer]. Reviewed chart and discussed with multidisciplinary team pt's medical status and initial discharge needs. ED ACUPRESSURIST met w/patient at bedside; introduced self and role. Patient was found in bed, alert and oriented, cooperative with assessment. Pt confirmed living situation and good support in brother who lives in [place]. Pt expressed preference in discharge home when cleared, discussed agreement to possible home health referral. Pt has no history of SNF Rehab and home health. Plan: Acute Care admission, anticipating discharge home when medically cleared, brother to transport. CM team will follow closely for coordination of discharge plans. Flora Trevizo PAPER CUP HANDLE MACHINE OPERATOR Discharge Planning/Care Management CM Discharge Assessment Start: 07/13/25 14:42 Freq: Status: Active Protocol: Document 07/13/25 18:06 MW (Rec: 07/13/25 18:08 MW [id number]) Discharge Planning Assessment Assigned Discharge SHARA Hines National Van Owner Operator Provider Ulises Mehta Insurance Medicare,Other (enter in Comment) Insurance Comment [employer] DPOA/Assigned Kin Kenney, Sibling Designee Name Contact Information [phone] Advance Directives? No History Provided By Patient,Family Member Has Patient been No admitted in last 30 days? Prior Living House Arrangements Comment [facility] Household Members none Type of Drives own vehicle transporation used prior to admit Independent with ADL Yes 's Is patient alert and Yes oriented? Discharge Plan Home Transportation Brother - Cecil Arrangement Review Status In Process Please Provide Date 07/13/25 Initial DC Assessment Was Performed Next Review Type Continued Stay Review
[2025-07-13] MEDS: ACETAMINOPHEN 325 MG TABLET 650 MG PO (21:39)
[2025-07-13] MEDS: CYCLOBENZAPRINE 10 MG TABLET 5 MG PO (21:56)
[2025-07-14 01:48] LABS: Blood Urea Nitrogen 40 mg/dL (9-20); Calcium 8.4 mg/dL (8.4-10.2); Carbon Dioxide 16 mmol/L (22-32); Chloride 109 mmol/L (98-107); Estimated Glomerular Filt Rate 53 mL/min (>60); Glucose 96 mg/dL (70-99); HEMOLYSIS < 15 (0-50); Potassium 4.5 mmol/L (3.4-5.1); Sodium 138 mmol/L (137-145)
[2025-07-14 03:06] LABS: MRSA (Nasal) PCR NOT DETECTED (Not Detect)
[2025-07-14] MEDS: SODIUM CHLORIDE 0.9% 1,000 ML 175 ML IV ×2 (04:08→10:39)
[2025-07-14 05:00] VITALS: BP 107/55; PULSE 83; RESP 18; TEMP 36.5; O2SAT 97
--- NOTE | 2025-07-14 06:34 | PC.NURSE ---
[employer] Summary-Patient dosed intermittently, oriented to place, month, and year. Does use call light appropriately. Has rib pain while moving. Medicated with PO Tylenol and muscle relaxer. SR, VSS, SpO2 >95% on RA. NS @ 175ml/hr. UOP 950ml via [place] cath.
[2025-07-14 06:51] LABS: Add Manual Diff / Slide Review NO; Hematocrit 32.4 % (41-53); Hemoglobin 10.9 g/dL (13.5-17.5); Lymphocytes Absolute Auto 1100 /uL (1100-4500); Mean Corpuscular HGB Conc 33.6 % (30-36); Mean Corpuscular Hemoglobin 30.4 PG (26-34); Mean Corpuscular Volume 90.4 fL (80-100); Platelet Count 263 X10^3/uL (150-400)
[2025-07-14 07:01] LABS: Alanine Aminotransferase 66 IU/L (<50); Albumin 3.5 g/dL (3.5-5.0); Albumin Globulin Ratio 1.3 (1.0-2.8); Alkaline Phosphatase 65 U/L (38-126); Blood Urea Nitrogen 36 mg/dL (9-20); Calcium 8.4 mg/dL (8.4-10.2); Carbon Dioxide 15 mmol/L (22-32); Chloride 110 mmol/L (98-107); Estimated Glomerular Filt Rate > 60 mL/min (>60); Globulin 2.8 g/dL (1.7-4.1); Glucose 105 mg/dL (70-99); HEMOLYSIS 18 (0-50); Potassium 4.5 mmol/L (3.4-5.1); Sodium 139 mmol/L (137-145); Total Protein 6.3 g/dL (6.3-8.2)
--- NOTE | 2025-07-14 07:17 | P.PN_ITS ---
Subjective Subjective Date Patient Seen: 07/14/25 Interval history: This is a 70-year-old male with a history of a Diabetes Mellitus, HTN, HLD and a memory/cognitive dysfunction who presented with Rhabdomyolysis after falling in his yard and spending the night trying to get up the 4 steps to the deck. He is quite confused and apparently suffers from a cognitive/memory disorder at baseline. He thinks that he slept on the steps or in the yard. A neighbor apparently saw him crawling around the yard this morning and called for help. He thinks that he is in [place] and thinks that his brother brought him to the hospital. The CK is 11,740 and the WBC is 21.9. The Troponin of 2.28 is attributed to the Rhabdo. He can't recall any recent illness and says that he would normally be able to climb his 4 steps to the deck without any problem. 07/14: He is complaining of right rib pain from his fall. We will get an x-ray. The white blood count is 11.7 with a hemoglobin of 10.9. The BNP is normal except for a CO2 of 15. The hemoglobin has dropped from 13.2 down to 10.9. The AST is 159 and the ALT is 66. The platelets have dropped from 326 down to 263. The CK level is 9267. His potassium is still good at 4.5. He is on 175 mL/hr of IV fluid. Exam: Alert and oriented to name and to the fact that he is in a hospital. Lungs are clear to auscultation bilaterally. There is tenderness along the right flank. Heart is regular rate and rhythm without murmur. Abdomen is soft, bowel sounds positive, nontender, obese. Extremities have no ankle edema. Skin has many abrasions and bruises on the face, arms, legs, chest, sparing the abdomen. A/P: Rhabdomyolysis, present on admission, active -secondary to prolonged immobilization and hypothermia. -CK 11,740 on admission, down to 9267 on 07/14. -related elevation of troponin 2.2 8 -white blood count 21.9, down to 11.7 on 07/14. -IV fluids saline 175 mL/hr, follow creatinine, potassium and CK -with initial 2 L IV bolus in the ED his creatinine dropped from 2.0 down to 1.78. Subsequently it is down to 1.24. -potassium 5.0, then 4.5, follow closely Weakness/falling, present on admission. Active. -PT and OT evaluation. Head CT with prior strokes and no current bleed. Cognitive/Memory disorder, present on admission, chronic -reportedly family describes that he has a very short term memory. -CT shows: Presumed chronic prior strokes involving the posterior parietal cortex and subcortical white matter with encephalomalacia, mild in overall severity, right greater than left. -we will need neurology consultation as an outpatient Hypertension, present on admission, chronic -holding lisinopril and hydrochlorothiazide, resume when appropriate. Diabetes Mellitus, present on admissio, chronic -holding metformin, follow up blood sugars and use correctional scale insulin. DVT prevention with Enoxaparin His brother is his backup decision maker. Exam Vital Signs (past 8 hours): - 07/13/25 23:58 07/14/25 05:00 Temperature 98.0 F 97.7 F Pulse Rate 89 83 Respiratory Rate 18 18 Blood Pressure 106/51 L 107/55 L Pulse Oximetry 95 97 Oxygen Flow Rate 0 0 Oxygen Delivery Method Room Air Oxygen Flow Rate 0 Objective Labs 07/14/25 06:20 07/14/25 06:20 Labs: Laboratory Results - last 24 hr 07/13/25 07/13/25 07/13/25 10:45 12:48 12:48 WBC 21.7 H RBC 4.38 L Hgb 13.2 L Hct 39.7 L MCV 90.9 MCH 30.2 MCHC 33.2 RDW 13.6 Plt Count 326 Neut % (Auto) 86.6 H Lymph % (Auto) 5.8 L [place] % (Auto) 7.4 Eos % (Auto) 0.0 L Baso % (Auto) 0.2 Neut # (Auto) 83929 H Lymph # (Auto) 1300 [place] # (Auto) 1600 H Eos # (Auto) 0 Baso # (Auto) 0 PT 14.9 H INR 1.3 APTT 37 H Sodium 139 Potassium 5.4 H Chloride 103 Carbon Dioxide 13 L BUN 43 H Creatinine 2.01 H Estimated GFR 35 L BUN/Creatinine Ratio 21.4 Glucose 125 H POC Whole Bld Glucose Lactate 3.0 H Calcium 9.5 Total Bilirubin 1.0 AST 167 H ALT 70 H Alkaline Phosphatase 84 Total Creatine Kinase 36142 H Troponin I 0.280 H* Total Protein 8.0 Albumin 4.9 Globulin 3.1 Albumin/Globulin Ratio 1.6 Procalcitonin 0.691 H Urine Color Yellow Urine Appearance Sl cloudy Urine pH 5.5 Normal Ur Specific [place] 1.025 Urine Protein 1+ H Urine Glucose (UA) Negative Urine Ketones 2+ H Urine Occult Blood 3+ H Urine Nitrate Negative Urine Bilirubin Negative Urine Urobilinogen 0.2 Ur Leukocyte Esterase Negative Urine RBC 1-5/hpf Urine WBC 0-1/hpf Ur Squamous Epith Cells None seen Amorphous Sediment 2+ Urine Bacteria Occasional (0-1) Hyaline Casts 1-5/lpf Ur Culture Indicated? Cult not indicated Vol Urine Centrifuged 10ml (spun) Nasal Screen MRSA (PCR) U Opiates 300ng/mL cut Negative Ur Oxycodone Screen Negative Urine Methadone Screen Negative Ur Barbiturates Screen Negative U Tricyclic Antidepress Negative Ur Phencyclidine Scrn Negative Ur Amphetamines Screen Negative U Methamphetamines Scrn Negative Ur MDMA Scrn (Ecstasy) Negative U Benzodiazepines Scrn Negative Urine Cocaine Screen Negative U Marijuana (THC) Screen Negative Urine Specific [place] Normal Ethyl Alcohol < 10 Ur Creatinine Normal 07/13/25 07/13/25 07/13/25 13:31 13:35 20:52 WBC RBC Hgb Hct MCV MCH MCHC RDW Plt Count Neut % (Auto) Lymph % (Auto) [place] % (Auto) Eos % (Auto) Baso % (Auto) Neut # (Auto) Lymph # (Auto) [place] # (Auto) Eos # (Auto) Baso # (Auto) PT INR APTT Sodium 139 Potassium 5.0 Chloride 107 Carbon Dioxide 12 L BUN 41 H Creatinine 1.78 H Estimated GFR 40 L BUN/Creatinine Ratio 23.0 H Glucose 112 H POC Whole Bld Glucose 121 H Lactate 1.2 Calcium 8.7 Total Bilirubin 0.9 AST 160 H ALT 59 H Alkaline Phosphatase 74 Total Creatine Kinase Troponin I 0.259 H* Total Protein 6.9 Albumin 4.1 Globulin 2.8 Albumin/Globulin Ratio 1.5 Procalcitonin Urine Color Urine Appearance Urine pH Ur Specific [place] Urine Protein Urine Glucose (UA) Urine Ketones Urine Occult Blood Urine Nitrate Urine Bilirubin Urine Urobilinogen Ur Leukocyte Esterase Urine RBC Urine WBC Ur Squamous Epith Cells Amorphous Sediment Urine Bacteria Hyaline Casts Ur Culture Indicated? Vol Urine Centrifuged Nasal Screen MRSA (PCR) U Opiates 300ng/mL cut Ur Oxycodone Screen Urine Methadone Screen Ur Barbiturates Screen U Tricyclic Antidepress Ur Phencyclidine Scrn Ur Amphetamines Screen U Methamphetamines Scrn Ur MDMA Scrn (Ecstasy) U Benzodiazepines Scrn Urine Cocaine Screen U Marijuana (THC) Screen Urine Specific [place] Ethyl Alcohol Ur Creatinine 07/14/25 07/14/25 07/14/25 01:07 01:10 06:20 WBC 11.7 H RBC 3.59 L Hgb 10.9 L Hct 32.4 L MCV 90.4 MCH 30.4 MCHC 33.6 RDW 13.6 Plt Count 263 Neut % (Auto) 81.8 H Lymph % (Auto) 9.7 L [place] % (Auto) 8.0 Eos % (Auto) 0.4 L Baso % (Auto) 0.1 Neut # (Auto) 9600 H Lymph # (Auto) 1100 [place] # (Auto) 900 Eos # (Auto) 0 Baso # (Auto) 0 PT INR APTT Sodium 138 139 Potassium 4.5 4.5 Chloride 109 H 110 H Carbon Dioxide 16 L 15 L BUN 40 H 36 H Creatinine 1.42 H 1.24 Estimated GFR 53 L > 60 BUN/Creatinine Ratio 28.2 H 29.0 H Glucose 96 105 H POC Whole Bld Glucose Lactate Calcium 8.4 8.4 Total Bilirubin 0.8 AST 159 H ALT 66 H Alkaline Phosphatase 65 Total Creatine Kinase Troponin I Total Protein 6.3 Albumin 3.5 Globulin 2.8 Albumin/Globulin Ratio 1.3 Procalcitonin Urine Color Urine Appearance Urine pH Ur Specific [place] Urine Protein Urine Glucose (UA) Urine Ketones Urine Occult Blood Urine Nitrate Urine Bilirubin Urine Urobilinogen Ur Leukocyte Esterase Urine RBC Urine WBC Ur Squamous Epith Cells Amorphous Sediment Urine Bacteria Hyaline Casts Ur Culture Indicated? Vol Urine Centrifuged Nasal Screen MRSA (PCR) Not detected U Opiates 300ng/mL cut Ur Oxycodone Screen Urine Methadone Screen Ur Barbiturates Screen U Tricyclic Antidepress Ur Phencyclidine Scrn Ur Amphetamines Screen U Methamphetamines Scrn Ur MDMA Scrn (Ecstasy) U Benzodiazepines Scrn Urine Cocaine Screen U Marijuana (THC) Screen Urine Specific [place] Ethyl Alcohol Ur Creatinine [facility] Medical History (Updated 07/13/25 @ 19:00 by Louie Yates MD) Cognitive changes History of CVA (cerebrovascular accident) Hyperlipidemia HTN (hypertension) Impaired fasting glucose Social History household members: none Smoking Status: Former smoker alcohol intake: former Assessment & Plan Time-Based Coding :: [TOTAL MINUTES] spent with patient and on the chart (including review of chart, obtaining history, exam, reviewing outside data, placing orders, documenting exam and treatment plan, and counseling patient) on [DATE]. Quality VTE Deep Vein Thrombosis/Pulmonary Embolism Present on Admission: No
[2025-07-14 07:23] LABS: Troponin I 0.174 ng/mL (0.01-0.034)
[2025-07-14 07:45] LABS: Creatine Kinase 9267 U/L (55-170)
[2025-07-14 08:00] VITALS: BP 108/53; PULSE 82; RESP 30; TEMP 36.3; O2SAT 96
--- NOTE | 2025-07-14 08:23 | DI.RAD.S_ITS ---
PROCEDURE: XR RIBS RT 2V INDICATIONS: Chest trauma TECHNIQUE: 2 views of the right ribs were acquired. COMPARISON: [facility], CT, CT CHEST ABD PEL W CON, 07/13/2025, 10:47. FINDINGS: Surgical changes and devices: None. Bones and chest wall: Questionable minimally displaced anterior right 7th rib fracture. No suspicious bony lesions. Overlying soft tissues appear unremarkable. Lungs and pleura: The visualized right lung appears clear. No pleural effusions or pneumothorax are visible. IMPRESSION: Questionable nondisplaced anterior right 7th rib fracture. Correlate for point tenderness. No pleural effusion or pneumothorax. Approved by: Valdemar Estrada M.D. on 07/14/2025 at 11:42
[2025-07-14] MEDS: CLOPIDOGREL 75 MG TABLET PO (09:18)
[2025-07-14] MEDS: ENOXAPARIN 40 MG/0.4 ML SYRINGE SUBCUT (09:18)
[2025-07-14] MEDS: SODIUM CHLORIDE 0.9% FLUSH 10 ML IV ×2 (09:18→21:30)
[2025-07-14] MEDS: CYCLOBENZAPRINE 10 MG TABLET 5 MG PO (10:38)
[2025-07-14] MEDS: ACETAMINOPHEN 325 MG TABLET 975 MG PO (10:38)
[2025-07-14 12:29] VITALS: BP 111/65; PULSE 88; RESP 36; TEMP 36.5; O2SAT 96
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
--- NOTE | 2025-07-14 14:56 | DI.MRI.S_ITS ---
PROCEDURE: MR HEAD/BRAIN WO CON INDICATIONS: Confusion and Weakness TECHNIQUE: Non-contrast axial T1 spin echo, axial T2 fast spin echo, sagittal and axial FLAIR, coronal T2 fast spin echo, axial gradient echo, axial diffusion and ADC through the brain. COMPARISON: [facility], CT, CT ANGIO HEAD AND NECK, 07/13/2025, 10:47. [facility], CT, CT HEAD/BRAIN WO CON, 07/13/2025, 10:47. FINDINGS: Image quality: This examination is limited by involuntary motion artifact. CSF spaces: Ventricles appear symmetric in size and shape. Basal cisterns are patent. Mild bilateral chronic subdural hygromas can be seen, which are not frankly pathologic for age Brain: No intracranial bleeds or mass effects. There is cerebral volume loss for age. There are periventricular and deep white matter chronic small vessel ischemic changes. Brainstem appears normal. Diffusion-weighted images show no acute infarct. Prior bilateral cerebral hemisphere infarctions can be seen posteriorly, right worse than left. Normal intravascular flow voids are present. Skull and face: Calvarial bone marrow is normal in signal. Orbits are normal. Note is made of bilateral lens replacements. Sinuses: Sinuses and mastoids are clear. IMPRESSION: No findings of acute or subacute infarction can be seen. Prior bilateral cerebral infarctions can be seen posteriorly, right worse than left. Dictated by: Bryce Epstein M.D. on 07/14/2025 at 18:04 Approved by: Bryce Epstein M.D. on 07/14/2025 at 18:07
--- NOTE | 2025-07-14 15:12 | PC.NURSE ---
Medication admin note: 5mg/325mg hydrocodone/acetaminophen given as documented in MAR
--- NOTE | 2025-07-14 15:14 | PT.IIE ---
Medical History (Last Updated 07/13/25 @ 19:00 by Louie Yates MD) Cognitive changes History of CVA (cerebrovascular accident) HTN (hypertension) Hyperlipidemia Impaired fasting glucose Physical Therapy Inpatient Evaluation/Re-Eval M1 PT/OT-IP Prior Functional Status Start: 07/14/25 15:04 Freq: NEEDED Status: Active Protocol: Document 07/14/25 15:04 KJ (Rec: 07/14/25 15:14 KJ [id number]) Medical Review Prior Functional Status Medical History Yes Reviewed Mobility and Gait Ambulated without assistive device. Drive own car. Lives [place]. Activities of Daily Indep ADLs Living and IADL's Prior Functional May have preexisting cognitive issues. Level (Other details ) Social History Household Members none Living Arrangements House Number of Floors ( One Floor Floors) Number of Stairs To 2 Enter/Railing? M2 PT-IP Current Condition Start: 07/14/25 15:04 Freq: NEEDED Status: Active Protocol: Document 07/14/25 15:04 KJ (Rec: 07/14/25 15:14 KJ [id number]) Physical Therapy Current Condition Current Condition Evaluation Date 07/14/25 Treatment Diagnosis Impaired mobility, frequent falls, rib fx Onset Date 07/13/25 M3 PT-IP Subjective Start: 07/14/25 15:04 Freq: NEEDED Status: Active Protocol: Document 07/14/25 15:04 KJ (Rec: 07/14/25 15:14 KJ [id number]) Subjective Physical Therapy Visit Type Type Initial Evaluation Visit Start Time 14:26 Visit Stop Time 15:[address] Yates came in and told pt he has a nondisplaced rib fx, is ordering pain meds. Physical Therapy Visit Comments Patient Comments Ribs hurt a lot, if hob is too low and during mobility. Patient Goals To feel better Therapy Pain Assessment Pain When Pain Assessed During Mobility Pain Present Pain Present Pain Reported Location Bilateral Ribs Description Aching,Acute Pain Behaviors Facial Grimacing,Holding Area Pain Management Re-positioning Techniques M4 PT-IP Mobility and Gait Start: 07/14/25 15:04 Freq: NEEDED Status: Active Protocol: Document 07/14/25 15:04 KJ (Rec: 07/14/25 15:14 KJ [id number]) PT-Bed Mobility Assessment Rolling Type of Rolling Bilateral Level of Assist Moderate Assistance PT-Transfer Assessment Comments Mobility Comments Pt in pain due to rib fx; Rx limited at this time. M5 PT-IP Objective Assessments Start: 07/14/25 15:04 Freq: NEEDED Status: Active Protocol: Document 07/14/25 15:04 KJ (Rec: 07/14/25 15:14 KJ [id number]) Orientation Orientation/Cognition Level of Alertness Alert Orientation Name,Age,Birthday Language Function No Deficits Noted Ability Gross Range of Motion Upper Extremity ROM Impairments Unable to fully test shoulder AROM due to pain in ribs. Elbows/wrists/hands WFL Lower Extremity ROM Impairments WFL in knees and ankles Strength Upper Extremity Strength Shoulder rotation WFL bilat Elbow WFL Wrist WFL Hand WFL Lower Extremity Strength Ankle bilat ankle dorsiflex WFL M6 PT-IP Treatment Start: 07/14/25 15:04 Freq: NEEDED Status: Active Protocol: Document 07/14/25 15:04 KJ (Rec: 07/14/25 15:14 KJ [id number]) Physical Therapy Treatment Exercises Exercises Ankle Pumps,Gluteal Sets,Quad Sets Education Education Provided Safety Other Treatments Other Treatment Instructed on log rolling, encouraged being up in chair Performed for meals to prevent aspiration M7 PT-IP Assessment and Plan Start: 07/14/25 15:04 Freq: NEEDED Status: Active Protocol: Document 07/14/25 15:04 KJ (Rec: 07/14/25 15:14 KJ [id number]) PT Summary Assessment and Plan Potential Rehabilitation Good Potential Status of Condition Evolving at Evaluation Summary Impairments Pain,ROM,Bed Mobility,Transfers,Gait Goals Bed Mobility Goal Standby Assistance Transfer Goal Standby Assistance Gait Goal Standby Assistance Gait Distance 50 Other Goals ascend/descend 2 steps w/rail w/CGA Frequency of Treatment Frequency Of Once a Day Treatment Treatment Plan Physical Therapy Bed Mobility Training,Transfer Training,Gait Training, Treatment Plan Therapeutic Exercise Other Recommend pain medication before PT. Progress to Recommendations and transfers and ambulation as ever. Next Treatment Focus Recommendations To Nursing Amount of Assist 2 Person Assist Needed Discharge Recommendations PT Discharge SNF Rehab Recommendations
[2025-07-14 16:23] VITALS: BP 113/65; PULSE 81; RESP 22; TEMP 36.2; O2SAT 96
[2025-07-14 19:00] VITALS: BP 105/56; PULSE 85; RESP 18; TEMP 36.1; O2SAT 96
[2025-07-14 23:00] VITALS: BP 108/63; PULSE 83; RESP 28; TEMP 36.8; O2SAT 95
[2025-07-15 03:00] VITALS: BP 121/64; PULSE 82; RESP 24; TEMP 36.1; O2SAT 96
[2025-07-15] MEDS: SODIUM CHLORIDE 0.9% 1,000 ML 175 ML IV ×3 (04:29→14:26)
[2025-07-15 05:50] LABS: Alanine Aminotransferase 59 IU/L (<50); Albumin 3.0 g/dL (3.5-5.0); Albumin Globulin Ratio 1.3 (1.0-2.8); Alkaline Phosphatase 70 U/L (38-126); Blood Urea Nitrogen 26 mg/dL (9-20); Calcium 8.4 mg/dL (8.4-10.2); Carbon Dioxide 18 mmol/L (22-32); Chloride 109 mmol/L (98-107); Estimated Glomerular Filt Rate > 60 mL/min (>60); Globulin 2.4 g/dL (1.7-4.1); Glucose 117 mg/dL (70-99); HEMOLYSIS < 15 (0-50); Potassium 4.2 mmol/L (3.4-5.1); Sodium 136 mmol/L (137-145); Total Protein 5.4 g/dL (6.3-8.2)
[2025-07-15 06:03] LABS: Add Manual Diff / Slide Review NO; Hematocrit 29.4 % (41-53); Hemoglobin 10.2 g/dL (13.5-17.5); Lymphocytes Absolute Auto 1100 /uL (1100-4500); Mean Corpuscular HGB Conc 34.7 % (30-36); Mean Corpuscular Hemoglobin 31.4 PG (26-34); Mean Corpuscular Volume 90.4 fL (80-100); Platelet Count 225 X10^3/uL (150-400)
[2025-07-15 06:10] LABS: Creatine Kinase 4046 U/L (55-170)
[2025-07-15 08:00] VITALS: BP 117/68; PULSE 83; RESP 26; TEMP 36; O2SAT 94
[2025-07-15] MEDS: CLOPIDOGREL 75 MG TABLET PO (08:37)
[2025-07-15] MEDS: SODIUM CHLORIDE 0.9% FLUSH 10 ML IV ×2 (08:37→20:23)
[2025-07-15] MEDS: ENOXAPARIN 40 MG/0.4 ML SYRINGE SUBCUT (08:37)
[2025-07-15] MEDS: CYCLOBENZAPRINE 10 MG TABLET 5 MG PO ×2 (08:45→20:12)
[2025-07-15 12:36] VITALS: BP 134/76; PULSE 84; RESP 28; TEMP 35.9; O2SAT 96
--- NOTE | 2025-07-15 12:49 | CM.DPNOTE ---
Addendum entered by SHARA Nevarez 07/15/25 13:48: ADD: F [phone] did not go through. Faxed to F [phone], Placed call to admissions at [facility] P [phone], had to LM. Placed call to hotel receptionist P [phone]. Third fax attempt- F [phone] did go through. Original Note: DCP Cont Therapy recommending SNF and provider agrees. Referral sent via RightFax to [facility] in [place] F [phone] per patient/family preference. PASRR completed and faxed via RightFax to [facility]. JOANNE
--- NOTE | 2025-07-15 14:45 | PT.IPTN ---
Current Diagnoses Rhabdomyolysis (07/13/25) Physical Therapy Treatment Note M2 PT-IP Current Condition Start: 07/14/25 15:04 Freq: NEEDED Status: Active Protocol: Document 07/14/25 15:04 KJ (Rec: 07/14/25 15:14 KJ [id number]) Physical Therapy Current Condition Current Condition Evaluation Date 07/14/25 Treatment Diagnosis Impaired mobility, frequent falls, rib fx Onset Date 07/13/25 M3 PT-IP Subjective Start: 07/14/25 15:04 Freq: NEEDED Status: Active Protocol: Document 07/15/25 14:40 AB (Rec: 07/15/25 16:47 AB Desktop) Subjective Physical Therapy Visit Type Type Treatment Note Visit Start Time 14:40 Visit Stop Time 15:05 Number of HAND NAILER Visits 0 Physical Therapy Visit Comments Patient Comments able to make needs known Therapy Pain Assessment Pain When Pain Assessed At Rest Pain Present Pain Present Pain Reported Location Bilateral Ribs Scale Used pain scale not stated; increase with movements Pain Management Distraction,Modification of Treatment,Re-positioning Techniques M4 PT-IP Mobility and Gait Start: 07/14/25 15:04 Freq: NEEDED Status: Active Protocol: Document 07/15/25 14:40 AB (Rec: 07/15/25 16:47 AB Desktop) PT-Bed Mobility Assessment Supine to Sit Supine to Sit Maximum Assistance,1 Person Assistance,2 Person Assistance,Head of Bed Elevated,Bedrails Scooting Scooting to Edge of Maximum Assistance Bed PT-Transfer Assessment Sit to and From Stand Sit to and from Maximum Assistance,2 Person Assistance,Use of Upper Stand Extremities Equipment Transfer Assistive Gait Belt,Front Wheeled Walker Device Orthotic/Prosthetic No Devices or Brace: Transfers Transfer Destination Chair Transfer Technique Stand Step Pivot Transfer Ability Level of Assist Maximum Assistance,2 Person Assistance,Use of Upper Extremities Comments Mobility Comments pt in bed and LE off bed. repositioned pt in bed. pt agreed to get up with PT. nurse in room to assist. pt c/o anterior rib pain but unable to give pain scale. elevated HOB and pt able to get to sitting position max A x 2 and max cues. bed rail used. max A to scoot to EOB. pt needed max cues with all tasks. sit to stand from EOB max A x 2 and max cues and was able to step pivot transfer to chair using FWW max A x 2 and max cues. (+) slight B knee buckling during transfer requiring max A x 2 for stability. pt also required assist to pivot and to maneuver FWW. pt sat on the chair. agreed to stay seated on the chair. refused further activities. positioned pt on the chair. call light and table placed within reach. nurse provided pt with chair alarm. Gait Assessment Comments Gait Comments unable at this time M5 PT-IP Objective Assessments Start: 07/14/25 15:04 Freq: NEEDED Status: Active Protocol: Document 07/14/25 15:04 KJ (Rec: 07/14/25 15:14 KJ [id number]) Orientation Orientation/Cognition Level of Alertness Alert Orientation Name,Age,Birthday Language Function No Deficits Noted Ability Gross Range of Motion Upper Extremity ROM Impairments Unable to fully test shoulder AROM due to pain in ribs. Elbows/wrists/hands WFL Lower Extremity ROM Impairments WFL in knees and ankles Strength Upper Extremity Strength Shoulder rotation WFL bilat Elbow WFL Wrist WFL Hand WFL Lower Extremity Strength Ankle bilat ankle dorsiflex WFL M6 PT-IP Treatment Start: 07/14/25 15:04 Freq: NEEDED Status: Active Protocol: Document 07/15/25 14:40 AB (Rec: 07/15/25 16:47 AB Desktop) Physical Therapy Treatment Education Education Provided Safety M7 PT-IP Assessment and Plan Start: 07/14/25 15:04 Freq: NEEDED Status: Active Protocol: Document 07/15/25 14:40 AB (Rec: 07/15/25 16:47 AB Desktop) PT Summary Assessment and Plan Potential Rehabilitation Fair Potential Summary Impairments Pain,ROM,Strength,Balance,Coordination,Sensation,Tone, Cognition,Bed Mobility,Transfers,Gait,Activity Tolerance Progress Towards Slow Progress due to Pain,Slow Progress due to Activity Goals Tolerance,Slow Progress - Other Assessment Summary pt requiring max A x 2 for transfers using FWW and unable to ambulate at this time. pt c/o rib pain and presents with overall weakness and decrease activity tolerance affecting mobility. pt will require SNF rehab to improve strength and functional independence. Goals Bed Mobility Goal Standby Assistance Transfer Goal Standby Assistance,Front Wheeled Walker Gait Goal Standby Assistance,Front Wheel Walker Gait Distance 50 Other Goals ascend/descend 2 steps w/rail w/CGA Days to Meet Goals 10 Frequency of Treatment Frequency Of Once a Day Treatment Treatment Plan Physical Therapy Bed Mobility Training,Transfer Training,Gait Training, Treatment Plan Therapeutic Exercise,Balance Retraining,Discharge Planning,Hot or Cold Pack,Neuromuscular Re-ed, Coordination Retraining Precautions Other Precautions Falls Recommendations To Nursing Amount of Assist 2 Person Assist Needed Discharge Recommendations PT Discharge SNF Rehab Recommendations Transportation Needs Wheelchair/Cabulance,Stretcher/Ambulance at Discharge - PT assist 2
[2025-07-15 16:36] VITALS: BP 120/65; PULSE 86; RESP 14; TEMP 36.6; O2SAT 98
--- NOTE | 2025-07-15 19:16 | P.PN_ITS ---
Subjective Subjective Date Patient Seen: 07/15/25 Interval history: Chief complaint: Confusion cold exposure rhabdomyolysis weakness History of present illness: 07/13:70-year-old male with a history of a Diabetes Mellitus, HTN, HLD and a memory/cognitive dysfunction who presented with Rhabdomyolysis after falling in his yard and spending the night trying to get up the 4 steps to the deck. He is quite confused and apparently suffers from a cognitive/memory disorder at baseline. He thinks that he slept on the steps or in the yard. A neighbor apparently saw him crawling around the yard this morning and called for help. He thinks that he is in [place] and thinks that his brother brought him to the hospital. The CK is 11,740 and the WBC is 21.9. The Troponin of 2.28 is attributed to the Rhabdo. He can't recall any recent illness and says that he would normally be able to climb his 4 steps to the deck without any problem. Hospital course: 07/14: He is complaining of right rib pain from his fall. We will get an x-ray. The white blood count is 11.7 with a hemoglobin of 10.9. The BNP is normal except for a CO2 of 15. The hemoglobin has dropped from 13.2 down to 10.9. The AST is 159 and the ALT is 66. The platelets have dropped from 326 down to 263. The CK level is 9267. His potassium is still good at 4.5. He is on 175 mL/hr of IV fluid. 07/15: Feeling somewhat better today but still feeling rather weak CK is down to 4000 electrolytes are in reference range. Patient is evaluated by Physical therapy we will need rehab in care home Review of systems: No fever or chills Appetite improving No chest pain palpitations Nausea vomiting diarrhea The paresthesia paresis Physical exam: Disheveled elderly gentleman very pleasant somewhat confused HEENT unremarkable Neck no JVD Heart and lungs clear Abdomen is benign extremities no edema Neuro nonfocal Assessment and plan: Rhabdomyolysis, present on admission, active * -secondary to prolonged immobilization and hypothermia. * -CK 11,740 on admission, down to 9267 on 07/14. Down to 4000 07/15 * -related elevation of troponin 2.2 8 likely musculoskeletal in origin * -white blood count 21.9, down to 11.7 on 07/14. * -IV fluids saline 175 mL/hr, follow creatinine, potassium and CK we will deescalate * -with initial 2 L IV bolus in the ED his creatinine dropped from 2.0 down to 1.78. Subsequently it is down to 1.24. * -potassium 5.0, then 4.5, follow closely Weakness/falling, present on admission. Active * -PT and OT evaluation. Head CT with prior strokes and no current bleed. Previous stroke as evidenced on imaging Cognitive/Memory disorder, present on admission, chronic * -reportedly family describes that he has a very short term memory. * -CT shows: Presumed chronic prior strokes involving the posterior parietal cortex and subcortical * white matter with encephalomalacia, mild in overall severity, right greater than left. * -we will need neurology consultation as an outpatient * Secondary prevention with antiplatelet hold statin until rhabdomyolysis is resolved Hypertension, present on admission, chronic * -holding lisinopril and hydrochlorothiazide, resume when appropriate. Diabetes Mellitus, present on admissio, chronic * -holding metformin, follow up blood sugars and use correctional scale insulin. DVT prevention * with Enoxaparin Code status: * Full code blue * His brother is his backup decision maker. Disposition: * Inpatient will require another 24-48 hours of inpatient care and we will need placement in care home facility and rehab Time based billing: * 35 minutes were involved management of this patient including [id number] evaluation physical examination of the patient review of records consultation with care team including physical therapy review of objective laboratory and imaging findings including direct visualization of cranial imaging Exam Vital Signs (past 8 hours): - 07/15/25 12:36 07/15/25 16:36 Temperature 96.7 F L 97.9 F Pulse Rate 84 86 Respiratory Rate 28 H 14 Blood Pressure 134/76 120/65 Pulse Oximetry 96 98 Oxygen Flow Rate 0 0 Oxygen Delivery Method Room Air Oxygen Flow Rate 0 Objective Labs 07/15/25 04:45 07/15/25 04:45 Labs: Laboratory Results - last 24 hr 07/14/25 07/15/25 07/15/25 20:54 04:45 08:05 WBC 9.0 RBC 3.25 L Hgb 10.2 L Hct 29.4 L MCV 90.4 MCH 31.4 MCHC 34.7 RDW 13.8 Plt Count 225 Neut % (Auto) 77.2 H Lymph % (Auto) 12.2 L [place] % (Auto) 7.5 Eos % (Auto) 2.4 Baso % (Auto) 0.7 Neut # (Auto) 7000 Lymph # (Auto) 1100 Marathon # (Auto) 700 Eos # (Auto) 200 Baso # (Auto) 100 Sodium 136 L Potassium 4.2 Chloride 109 H Carbon Dioxide 18 L BUN 26 H Creatinine 0.85 Estimated GFR > 60 BUN/Creatinine Ratio 30.6 H Glucose 117 H POC Whole Bld Glucose 132 H 154 H Calcium 8.4 Total Bilirubin 0.6 AST 106 H ALT 59 H Alkaline Phosphatase 70 Total Creatine Kinase 4046 H D Total Protein 5.4 L Albumin 3.0 L Globulin 2.4 Albumin/Globulin Ratio 1.3 07/15/25 07/15/25 11:37 17:35 WBC RBC Hgb Hct MCV MCH MCHC RDW Plt Count Neut % (Auto) Lymph % (Auto) Marathon % (Auto) Eos % (Auto) Baso % (Auto) Neut # (Auto) Lymph # (Auto) Marathon # (Auto) Eos # (Auto) Baso # (Auto) Sodium Potassium Chloride Carbon Dioxide BUN Creatinine Estimated GFR BUN/Creatinine Ratio Glucose POC Whole Bld Glucose 144 H 118 H Calcium Total Bilirubin AST ALT Alkaline Phosphatase Total Creatine Kinase Total Protein Albumin Globulin Albumin/Globulin Ratio [facility] Medical History (Updated 07/13/25 @ 19:00 by Louie Yates MD) Cognitive changes History of CVA (cerebrovascular accident) Hyperlipidemia HTN (hypertension) Impaired fasting glucose Social History household members: none Smoking Status: Former smoker alcohol intake: former Assessment & Plan Time-Based Coding :: [TOTAL MINUTES] spent with patient and on the chart (including review of chart, obtaining history, exam, reviewing outside data, placing orders, documenting exam and treatment plan, and counseling patient) on [DATE]. Quality VTE Deep Vein Thrombosis/Pulmonary Embolism Present on Admission: No
[2025-07-15 20:00] VITALS: BP 123/70; PULSE 88; RESP 20; TEMP 36.2; O2SAT 96
[2025-07-16] VITALS: BP 120/62; PULSE 79; RESP 20; TEMP 36.6; O2SAT 100
[2025-07-16 04:00] VITALS: BP 127/69; PULSE 85; RESP 22; TEMP 35.8; O2SAT 96
[2025-07-16] MEDS: SODIUM CHLORIDE 0.9% 1,000 ML 175 ML IV ×4 (04:14→21:32)
[2025-07-16 08:00] VITALS: BP 123/73; PULSE 82; RESP 15; TEMP 36.3; O2SAT 97
[2025-07-16] MEDS: CLOPIDOGREL 75 MG TABLET PO (08:13)
[2025-07-16] MEDS: ENOXAPARIN 40 MG/0.4 ML SYRINGE SUBCUT (08:13)
[2025-07-16] MEDS: SODIUM CHLORIDE 0.9% FLUSH 10 ML IV ×2 (08:13→21:01)
--- NOTE | 2025-07-16 11:57 | P.PN_ITS ---
Subjective Subjective Date Patient Seen: 07/16/25 Interval history: Chief complaint: Confusion cold exposure rhabdomyolysis weakness History of present illness: 07/13:70-year-old male with a history of a Diabetes Mellitus, HTN, HLD and a memory/cognitive dysfunction who presented with Rhabdomyolysis after falling in his yard and spending the night trying to get up the 4 steps to the deck. He is quite confused and apparently suffers from a cognitive/memory disorder at baseline. He thinks that he slept on the steps or in the yard. A neighbor apparently saw him crawling around the yard this morning and called for help. He thinks that he is in [place] and thinks that his brother brought him to the hospital. The CK is 11,740 and the WBC is 21.9. The Troponin of 2.28 is attributed to the Rhabdo. He can't recall any recent illness and says that he would normally be able to climb his 4 steps to the deck without any problem. Hospital course: 07/14: He is complaining of right rib pain from his fall. We will get an x-ray. The white blood count is 11.7 with a hemoglobin of 10.9. The BNP is normal except for a CO2 of 15. The hemoglobin has dropped from 13.2 down to 10.9. The AST is 159 and the ALT is 66. The platelets have dropped from 326 down to 263. The CK level is 9267. His potassium is still good at 4.5. He is on 175 mL/hr of IV fluid. 07/15: Feeling somewhat better today but still feeling rather weak CK is down to 4000 electrolytes are in reference range. 07/16: Very weak still CK is being rechecked IV fluids discontinued Patient is evaluated by Physical therapy we will [place] in [place] [facility]: elevated HOB and pt able to get to sitting position max A x 2 and max cues. bed rail used. max A to scoot to EOB. pt needed max cues with all tasks. sit to stand from EOB max A x 2 and max cues and was able to step pivot transfer to chair using FWW max A x 2 and max cues. (+) slight B knee buckling during transfer requiring max A x 2 for stability. pt also required assist to pivot and to maneuver FWW. pt sat on the chair. agreed to stay seated on the chair. refused further activities. positioned pt on the chair. Review of systems: No fever or chills Appetite improving No chest pain palpitations Nausea vomiting diarrhea The paresthesia paresis Physical exam: Disheveled elderly gentleman very pleasant somewhat confused HEENT unremarkable Neck no JVD Heart and lungs clear Abdomen is benign extremities no edema Neuro nonfocal Assessment and plan: Rhabdomyolysis, present on admission, active * -secondary to prolonged immobilization and hypothermia. * -CK 11,740 on admission, down to 9267 on 07/14. Down to 4000 07/15 * -related elevation of troponin 2.2 8 likely musculoskeletal in origin * -white blood count 21.9, down to 11.7 on 07/14. * -IV fluids saline 175 mL/hr, follow creatinine, potassium and CK we will deescalate * -with initial 2 L IV bolus in the ED his creatinine dropped from 2.0 down to 1.78. Subsequently it is down to 1.24. * -potassium 5.0, then 4.5, follow closely Weakness/falling, present on admission. Active * -PT and OT evaluation. Head CT with prior strokes and no current bleed. Previous stroke as evidenced on imaging Cognitive/Memory disorder, present on admission, chronic * -reportedly family describes that he has a very short term memory. * -CT shows: Presumed chronic prior strokes involving the posterior parietal cortex and subcortical * white matter with encephalomalacia, mild in overall severity, right greater than left. * -we will need neurology consultation as an outpatient * Secondary prevention with antiplatelet hold statin until rhabdomyolysis is resolved Hypertension, present on admission, chronic * -holding lisinopril and hydrochlorothiazide, resume when appropriate. Diabetes Mellitus, present on admissio, chronic * -holding metformin, follow up blood sugars and use correctional scale insulin. DVT prevention * with Enoxaparin Code status: * Full code blue * His brother is his backup decision maker. Disposition: * Inpatient will require another 24 hours of inpatient care and we will need placement in [place] [facility] and rehab * Therapy recommending SNF and provider agrees. Referral sent via RightFax to [facility] in [facility] [phone] per patient/family preference. Time based billing: * 35 minutes were involved management of this patient including [id number] evaluation physical examination of the patient review of records consultation with care team including physical therapy review of objective laboratory and imaging findings including direct visualization of cranial imaging Exam Vital Signs (past 8 hours): - 07/16/25 04:00 07/16/25 08:00 Temperature 96.5 F L 97.4 F L Pulse Rate 85 82 Respiratory Rate 22 15 Blood Pressure 127/69 123/73 Pulse Oximetry 96 97 Oxygen Flow Rate 0 0 Oxygen Delivery Method Room Air Oxygen Flow Rate 0 Objective Labs 07/15/25 04:45 07/15/25 04:45 Labs: Laboratory Results - last 24 hr 07/15/25 07/15/25 07/16/25 17:35 19:49 07:51 POC Whole Bld Glucose 118 H 119 H 120 H PFSH Medical History (Updated 07/13/25 @ 19:00 by Louie Yates MD) Cognitive changes History of CVA (cerebrovascular accident) Hyperlipidemia HTN (hypertension) Impaired fasting glucose Social History household members: none Smoking Status: Former smoker alcohol intake: former Assessment & Plan Time-Based Coding :: [TOTAL MINUTES] spent with patient and on the chart (including review of chart, obtaining history, exam, reviewing outside data, placing orders, documenting exam and treatment plan, and counseling patient) on [DATE]. Quality VTE Deep Vein Thrombosis/Pulmonary Embolism Present on Admission: No
[2025-07-16 12:00] VITALS: BP 125/65; PULSE 89; RESP 14; TEMP 36.6; O2SAT 97
[2025-07-16 16:32] LABS: Hemoglobin A1C% w Est Avg Glu 6.0 % (4.0-6.0)
[2025-07-16 16:40] LABS: Creatine Kinase 2522 U/L (55-170)
[2025-07-16 19:27] VITALS: BP 131/74; PULSE 82; RESP 16; TEMP 36.3; O2SAT 97
[2025-07-16 20:01] VITALS: BP 134/76; PULSE 80; RESP 16; TEMP 36.5; O2SAT 96
[2025-07-16] MEDS: CALCIUM CARBONATE 500 MG TAB 1000 MG PO (21:53)
[2025-07-16] MEDS: FAMOTIDINE 20 MG TABLET PO (23:58)
[2025-07-17 00:15] VITALS: BP 137/57; PULSE 91; RESP 16; TEMP 36.2; O2SAT 92
[2025-07-17] MEDS: SODIUM CHLORIDE 0.9% 1,000 ML 175 ML IV (03:36)
[2025-07-17 06:36] VITALS: BP 117/68; PULSE 85; RESP 16; TEMP 36.4; O2SAT 91
--- NOTE | 2025-07-17 07:32 | P.DS_ITS ---
History of Present Illness History of Present Illness Date Patient Seen: 07/17/25 Chief complaint: Rhabdomyolysis with muscle weakness Narrative: Chief complaint: Confusion cold exposure rhabdomyolysis weakness History of present illness: 07/13:70-year-old male with a history of a Diabetes Mellitus, HTN, HLD and a memory/cognitive dysfunction who presented with Rhabdomyolysis after falling in his yard and spending the night trying to get up the 4 steps to the deck. He is quite confused and apparently suffers from a cognitive/memory disorder at baseline. He thinks that he slept on the steps or in the yard. A neighbor apparently saw him crawling around the yard this morning and called for help. He thinks that he is in [place] and thinks that his brother brought him to the hospital. The CK is 11,740 and the WBC is 21.9. The Troponin of 2.28 is attributed to the Rhabdo. He can't recall any recent illness and says that he would normally be able to climb his 4 steps to the deck without any problem. Hospital course: 07/14: He is complaining of right rib pain from his fall. We will get an x-ray. The white blood count is 11.7 with a hemoglobin of 10.9. The BNP is normal except for a CO2 of 15. The hemoglobin has dropped from 13.2 down to 10.9. The AST is 159 and the ALT is 66. The platelets have dropped from 326 down to 263. The CK level is 9267. His potassium is still good at 4.5. He is on 175 mL/hr of IV fluid. 07/15: Feeling somewhat better today but still feeling rather weak CK is down to 4000 electrolytes are in reference range. 07/16: Very weak still CK is being rechecked IV fluids discontinued 07/17: Still very weak upon review and reflexion of this it is possible that this may have been statin myopathy so simvastatin was discontinued and in its place Zetia patient discharged to assisted/memory care level of care Patient is evaluated by Physical therapy we will need rehab in assisted: elevated HOB and pt able to get to sitting position max A x 2 and max cues. bed rail used. max A to scoot to EOB. pt needed max cues with all tasks. sit to stand from EOB max A x 2 and max cues and was able to step pivot transfer to chair using FWW max A x 2 and max cues. (+) slight B knee buckling during transfer requiring max A x 2 for stability. pt also required assist to pivot and to maneuver FWW. pt sat on the chair. agreed to stay seated on the chair. refused further activities. positioned pt on the chair. Review of systems: No fever or chills Appetite improving No chest pain palpitations Nausea vomiting diarrhea The paresthesia paresis Physical exam: Disheveled elderly gentleman very pleasant somewhat confused HEENT unremarkable Neck no JVD Heart and lungs clear Abdomen is benign extremities no edema Neuro nonfocal Assessment and plan: Rhabdomyolysis, present on admission, active * -secondary to prolonged immobilization and hypothermia. * -CK 11,740 on admission, down to 07/16 * -related elevation of troponin 2.2 8 likely musculoskeletal in origin * -white blood count 21.9, down to 11.7 on 07/14. * -IV fluids saline 175 mL/hr, follow creatinine, potassium and CK we will deescalate * -with initial 2 L IV bolus in the ED his creatinine dropped from 2.0 down to 1.78. Subsequently it is down to 1.24. * -potassium 5.0, then 4.5, follow closely * Discontinue statin a substitute Zetia Weakness/falling, present on admission. Active * -PT and OT evaluation. Head CT with prior strokes and no current bleed. Previous stroke as evidenced on imaging Cognitive/Memory disorder, present on admission, chronic * -reportedly family describes that he has a very short term memory. * -CT shows: Presumed chronic prior strokes involving the posterior parietal cortex and subcortical * white matter with encephalomalacia, mild in overall severity, right greater than left. * -we will need neurology consultation as an outpatient * Secondary prevention with antiplatelet discontinue statin and substitute Zetia Hypertension, present on admission, chronic * Resume antihypertensives at discharge Diabetes Mellitus, present on admissio, chronic * Resume at discharge DVT prevention * with Enoxaparin Code status: * Full code blue * His brother is his backup decision maker. Disposition: * Clinically ready for discharge will need placement in assisted facility and rehab * Therapy recommending SNF and provider agrees. Referral sent via RightFax to [facility] in [place] F [phone] per patient/family preference. Time based billing: * 35 minutes were involved management of this patient including [id number] evaluation physical examination of the patient review of records consultation with care team including physical therapy review of objective laboratory and imaging findings including direct visualization of cranial imaging Discharge Providers Provider Date of admission: 07/13/25 14:20 Discharge Date: 07/17/25 Consults: 07/13/25 23:31 Consult to Pharmacy Routine Comment: protocol 07/14/25 09:52 Consult to PATIENT CARE - [facility] Routine Comment: [facility] Consult needed for:: Unable to care for self Comment: Lives at home alone on [address], brother states he has been having more difficulty with his ADLs and is concerned for his safety. 07/14/25 12:56 Consult to Occupational Therapy Evaluate & Treat Comment: Physician Instructions: Evaluate and treat Consult to Physical Therapy Evaluate & Treat Comment: Physician Instructions: Evaluate and Treat 07/14/25 13:03 Consult to Home Health Routine Comment: Reason For Exam: Home Health upon DC 07/15/25 09:25 Consult to Pharmacy Routine Comment: Needs help with meds Discharge provider: Artem Serrano MD Exam Vital Signs (past 8 hours): - 07/17/25 00:15 07/17/25 06:36 Temperature 97.1 F L 97.5 F L Pulse Rate 91 H 85 Respiratory Rate 16 16 Blood Pressure 137/57 L 117/68 Pulse Oximetry 92 91 Oxygen Delivery Method Room Air Oxygen Flow Rate 0 Objective Labs 07/15/25 04:45 07/15/25 04:45 Labs: Laboratory Results - last 24 hr 07/16/25 07/16/25 07/16/25 07:51 11:54 16:15 POC Whole Bld Glucose 120 H 126 H Hemoglobin A1c 6.0 Total Creatine Kinase 2522 H 07/16/25 07/16/25 07/17/25 16:36 19:53 07:23 POC Whole Bld Glucose 122 H 148 H 126 H Hemoglobin A1c Total Creatine Kinase [facility] Medical History (Updated 07/13/25 @ 19:00 by Louie Yates MD) Cognitive changes History of CVA (cerebrovascular accident) Hyperlipidemia HTN (hypertension) Impaired fasting glucose Social History household members: none Smoking Status: Former smoker alcohol intake: former Discharge Plan Discharge Plan Patient Disposition: SNF Discharge orders & Medications Prescriptions: New ezetimibe [Zetia] 10 mg tablet 10 mg PO DAILY Qty: 30 0RF Continued (DME) omeprazole 20 tablet 0 .ROUTE .MEDSUPPLY pioglitazone 30 mg tablet 30 mg PO DAILY Rybelsus 14 mg tablet 14 mg PO DAILY clopidogrel 75 mg tablet 75 mg PO DAILY lisinopril-hydrochlorothiazide 20-12.5 mg tablet 1 tab PO DAILY metformin 1,000 mg tablet 1,000 mg PO BID Discontinued simvastatin 40 mg tablet 40 mg PO BEDTIME Visit Report/Discharge Packet Stand Alone Forms: Patient Portal/API Quality VTE Deep Vein Thrombosis/Pulmonary Embolism Present on Admission: No
[2025-07-17] MEDS: ENOXAPARIN 40 MG/0.4 ML SYRINGE SUBCUT (08:58)
[2025-07-17] MEDS: CLOPIDOGREL 75 MG TABLET PO (08:58)
[2025-07-17] MEDS: SODIUM CHLORIDE 0.9% FLUSH 10 ML IV ×2 (08:59→21:58)
--- NOTE | 2025-07-17 09:08 | OT.IP.EVAL ---
Current Diagnoses Rhabdomyolysis (07/13/25) Past Medical History (Last Updated 07/13/25 @ 19:00 by Louie Yates MD) Cognitive changes History of CVA (cerebrovascular accident) HTN (hypertension) Hyperlipidemia Impaired fasting glucose Occupational Therapy Inpatient Evaluation/Re-Eval M1 PT/OT-IP Prior Functional Status Start: 07/14/25 15:04 Freq: NEEDED Status: Active Protocol: Document 07/17/25 08:51 PATIENCE (Rec: 07/17/25 09:07 PIOTRNMBAL Desktop) Medical Review Prior Functional Status Medical History Yes Reviewed Communication Pt is able to make needs known. Mobility and Gait Ambulated without assistive device. Drive own car. Lives on [address]. Activities of Daily Indep BADL, IADL, driving to grocery store, and yard Living and IADL's work. Prior Functional May have preexisting cognitive issues. Level (Other details ) Social History Household Members none Living Arrangements House Number of Floors ( One Floor Floors) Number of Stairs To 2 Enter/Railing? Home Environment Standard Height Toilet,Tub/Shower Home Equipment Hand Held Shower Employment Status Retired M2 OT-IP Current Condition Start: 07/17/25 08:50 Freq: Status: Active Protocol: Document 07/17/25 08:51 PATIENCE (Rec: 07/17/25 09:07 PIOTRNMBAL Desktop) Occupational Therapy Current Condition Current Condition Evaluation Date 07/17/25 Treatment Diagnosis rhabdomyolysis, decreased self care, falls Diagnosis Onset Date 07/13/25 M3 OT- IP Subjective and Pain Start: 07/17/25 08:50 Freq: Status: Active Protocol: Document 07/17/25 08:51 PATIENCE (Rec: 07/17/25 09:07 PIOTRNMBAL Desktop) OT- Subjective Occupational Therapy Visit Type Type Initial Evaluation Visit Start Time 08:20 Visit Stop Time 08:46 Notes Pt reclined in bed with breakfast present. Pt agreeable to participating in OT eval. Occupational Therapy Visit Comments Patient Comments I want to go home. Pt reports he will go to his brothers house on d/c for a few days OT Pain Assessment Pain When Pain Assessed After Treatment Pain Present Pain Present Denied Pain M4 OT- IP ADL's Start: 07/17/25 08:50 Freq: Status: Active Protocol: Document 07/17/25 08:51 PATIENCE (Rec: 07/17/25 09:07 PATIENCE Desktop) OT ZQA-Gsor-Mo[place]i[facility] General Evaluation Self-Feeding Ability Independent OT ADL-Grooming General Evaluation Grooming Ability Standby Assistance Areas Needing Retrieving/Set-up of Grooming Items Assistance Comments OT Grooming Comments Pt washes his face, hands, and prince his hair sink side on set up of supplies. Pt with forward trunk and leans on counter prn. OT ADL-Oral Care General Eval Oral Care Ability Independent Comments Oral Care Comments Pt is able to gather supplies from around the sink. Pt leans heavily on the sink while performing oral hygiene . OT ADL-Dressing General Eval Lower Body Dressing Total Assistance Ability Comments OT Dressing Comments Pt unable to assist in donning his socks or adjusting his gown. OT ADL-Toileting Comments OT Toileting not observed. Pt using a catheter at time of eval. Comments OT ADL-Bathing Comments OT Bathing Comments not observed. M5 OT- IP IADL's Start: 07/17/25 08:50 Freq: Status: Active Protocol: Document 07/17/25 08:51 PATIENCE (Rec: 07/17/25 09:07 PATIENCE Desktop) OT-Instrumental Activities of Daily Living Deficits IADL Deficits Deficits Identified Home Safety Awareness Awareness of Need Decreased Awareness for Assistance at Home Medication Management Medication Pt may need assistance on dc Management Comments Money Management Money Management Pt may need assistance on dc Comments Meal Preparation Meal Preparation Pt may need assistance on dc Comments Chairman & Chief Executive Officer Chairman & Chief Executive Officer Pt may need assistance on dc Comments Driving Driving Comments Pt may need assistance on dc M6 OT- IP Functional Cognition Start: 07/17/25 08:50 Freq: Status: Active Protocol: Document 07/17/25 08:51 PATIENCE (Rec: 07/17/25 09:07 PATIENCE Desktop) Cognitive Factors Limiting Selfcare Function Cognitive Ability Level of Alertness Alert Patient Orientation Name,Age,Birthday,Month,Place,Situation Ability to Follow Able to Follow One Step Commands,Able to Follow Multi- Commands Step Commands Memory Description Short Term Intact,Working Intact Safety Awareness Underestimates Need for Assistance Cognitive Comments Cognitive Assessment Pt unable to state correct year or date. Pt was Comments somewhat confused concerning his situation resulting in hospitalization, but with increased time is able to provide information that aligns with chart review. OT- Vision and Hearing OT- Hearing Assessment OT- Hearing WFL Assessment OT- Vision Assessment Visual Acuity WFL,Glasses For Reading M7 OT- IP Mobility and Balance Start: 07/17/25 08:50 Freq: Status: Active Protocol: Document 07/17/25 08:51 PATIENCE (Rec: 07/17/25 09:07 PIOTRNMBAL Desktop) OT- Bed Mobility Assessment Supine to Sit Supine to Sit Assist Standby Assistance,Head of Bed Elevated,Bedrails Scooting Scooting to Edge of Standby Assistance,Head of Bed Elevated,Bedrails Bed OT-Transfer Assessment Sit to and From Stand Sit to and from Contact Guard Assistance,1 Person Assistance,Use of Stand Upper Extremities Transfers Transfer Ability Contact Guard Assistance,1 Person Assistance,Use of Upper Extremities Technique Transfer Destination Chair Transfer Technique Stand Step Pivot Devices Transfer Assistive Bed Rail,Gait Belt,Front Wheeled Walker Devices Comments Mobility Comments Pt requires vcs for hand placement for safety during sit<>stand. Pt has difficulty scooting EOB, but performs without assistance, requiring increased time. OT- Gait Assessment Gait Gait Assistance Contact Guard Assist Required: Distance (Feet) 15 Assistive Devices Assistive Device Gait Belt,Front Wheeled Walker Comments Gait Ability Pt amb to sink for sink side ADLs and then to chair. Pt Comments with vcs for appropriate FWW use and to reach back before t/f to chair. OT- Balance Assessment Sitting Balance and Reactions Static Sitting Good Balance Ability Dynamic Sitting Fair Balance Ability Standing Balance and Reactions Static Standing Fair Balance Ability Dynamic Standing Fair Balance Ability M8 OT- IP Objective Assessments Start: 07/17/25 08:50 Freq: Status: Active Protocol: Document 07/17/25 08:51 PATIENCE (Rec: 07/17/25 09:07 PATIENCE Desktop) OT Gross Range of Motion Upper Extremity Range of Motion Assessment Within Functional Limits OT Strength Upper Extremity Strength Assessment Within Functional Limits Hand Fuel Oil Clerk Strength Hand Dominance Right Comments Strength Comments Pt with 4/5 to 5/5 strength B from proximal to distal. OT-Muscle Tone Assessment Muscle Tone WNL Yes OT Sensation Assessment Edema Edema Absent M9 OT- IP Assessment and Plan Start: 07/17/25 08:50 Freq: Status: Active Protocol: Document 07/17/25 08:51 PATIENCE (Rec: 07/17/25 09:07 [facility]ENCE [facility] Summary Assessment and Plan Potential Rehabilitation Good Potential Analytic Complexity Low at Evaluation Summary OT Impairments Strength,Balance,Functional Cognition,Functional Mobility,Grooming,Dressing,Toileting,Bathing,Toilet Transfers,Shower Transfers,Activity Tolerance Progress Towards Progressing Toward Goals Goals Assessment Summary Pt is a 70 yo M who was found by his neighbor crawling in his yard after a fall the previous evening. Pt lives alone on [address], but reports he will d/c to his brother's house in [place] for a few days. Per pt reports he was I with all BADL/IADL and community mobility prior to fall. Pt does not know what cause his fall, reporting it was sudden. Pt presents with decreased BADLs, decreased functional t/fs, decreased safety awareness, decreased activity tolerance, and decreased balance. Skilled OT services are appropriate to address these deficits and to promote return towards PLOF. Pt would benefit from SNF vs home with assistance and HH services. Goals Grooming Goal Independent Dressing Goal Independent,Long Handled Shoe Horn,Firearms Inspector,Sock Aid Toileting Goal Independent Bathing Goal Independent,Grab Bars,Hand Held Shower Sprayer Toilet Transfer Goal Independent,Standard Toilet,Grab Bars Shower Transfer Goal Independent Days to Meet Goals 10 Frequency of Treatment Other frequency 5x/wk Treatment Plan OT Treatment Plan ADL Training,Functional Cognition Training,Functional Mobility,Therapeutic Exercises,Patient/Family Education ,Discharge Planning Discharge Recommendations OT Discharge Home Health,Home vs SNF Recommendations Home Equipment Needs FWW, LB AE (endocrinology specialist, sock aid, long handled shoe horn) Transportation Needs Private Vehicle,Wheelchair/Cabulance at Discharge
[2025-07-17 10:00] VITALS: BP 122/76; PULSE 89; RESP 15; TEMP 36; O2SAT 95
[2025-07-17] MEDS: CALCIUM CARBONATE 500 MG TAB 1000 MG PO ×2 (12:45→16:34)
[2025-07-17] MEDS: FAMOTIDINE 20 MG TABLET PO (12:45)
[2025-07-17 14:00] VITALS: BP 139/73; PULSE 83; RESP 15; TEMP 36.8; O2SAT 94
--- NOTE | 2025-07-17 16:00 | CM.DPNOTE ---
DCP note ULTIMATE HOOPS REFEREE reviewed EMR per provider stable to dc to SNF today per pt and brother, preference remains [facility] and then [facility] for SNF dc. if not will have alternative SNF preference gave sheet to review. will PP for WC Van transport. ULTIMATE HOOPS REFEREE left multiple vms with [facility] admissions throughout the day. at 1430, finally got call back from [facility] saying they are declining pt due to heavy care need/not appropriate staffing. ULTIMATE HOOPS REFEREE spoke with Brooke from [facility], happy to review. ULTIMATE HOOPS REFEREE faxed initial ref information P: dc to [facility] SNF pending acceptance. pt medically stable. PASRR previously done. will continue to follow closely for DCP Coordination SHARA Esquivel
[2025-07-17 19:55] VITALS: BP 133/67; PULSE 84; RESP 18; TEMP 36.6; O2SAT 95
[2025-07-17] MEDS: DOCUSATE 100 MG CAPSULE PO (21:57)
[2025-07-17] MEDS: CYCLOBENZAPRINE 10 MG TABLET 5 MG PO (22:06)
[2025-07-17 23:00] VITALS: BP 127/57; PULSE 79; RESP 18; TEMP 36.5; O2SAT 95
[2025-07-18 04:00] VITALS: BP 124/74; PULSE 82; RESP 20; TEMP 36.5; O2SAT 93
[2025-07-18 08:00] VITALS: BP 135/73; PULSE 85; RESP 18; TEMP 36.2; O2SAT 94
[2025-07-18 10:14] VITALS: BP 135/73; PULSE 85
[2025-07-18] MEDS: ENOXAPARIN 40 MG/0.4 ML SYRINGE SUBCUT (10:14)
[2025-07-18] MEDS: TAMSULOSIN 0.4 MG CAPSULE PO (10:14)
[2025-07-18] MEDS: DOCUSATE 100 MG CAPSULE PO ×2 (10:14→21:28)
[2025-07-18] MEDS: SODIUM CHLORIDE 0.9% FLUSH 10 ML IV ×2 (10:15→21:28)
[2025-07-18] MEDS: CLOPIDOGREL 75 MG TABLET PO (10:15)
[2025-07-18] MEDS: FINASTERIDE 5 MG TABLET PO (10:15)
--- NOTE | 2025-07-18 11:40 | PT.IPTN ---
Current Diagnoses Rhabdomyolysis (07/13/25) Physical Therapy Treatment Note M2 PT-IP Current Condition Start: 07/14/25 15:04 Freq: NEEDED Status: Active Protocol: Document 07/14/25 15:04 KJ (Rec: 07/14/25 15:14 KJ [id number]) Physical Therapy Current Condition Current Condition Evaluation Date 07/14/25 Treatment Diagnosis Impaired mobility, frequent falls, rib fx Onset Date 07/13/25 M3 PT-IP Subjective Start: 07/14/25 15:04 Freq: NEEDED Status: Active Protocol: Document 07/18/25 11:40 AB (Rec: 07/18/25 12:42 AB [id number]) Subjective Physical Therapy Visit Type Type Treatment Note Visit Start Time 11:40 Visit Stop Time 12:00 Number of CHROME TANNER Visits 0 Physical Therapy Visit Comments Patient Comments agreeable to do PT M4 PT-IP Mobility and Gait Start: 07/14/25 15:04 Freq: NEEDED Status: Active Protocol: Document 07/18/25 11:40 AB (Rec: 07/18/25 12:42 AB [id number]) PT-Transfer Assessment Sit to and From Stand Sit to and from Minimal Assistance,Maximum Assistance,1 Person Stand Assistance,Use of Upper Extremities Equipment Transfer Assistive Gait Belt,Front Wheeled Walker Device Orthotic/Prosthetic No Devices or Brace: Comments Mobility Comments pt sitting on the chair and brother in room. pt agreed to do PT. sit to stand max A and max cues. needed max cues for techniques. pt ambulated in room ~ 25 ft using FWW initial mod A but midway requiring max A and max cues with unsteady antalgic gait with B knee slight buckling. max cues provided for steadiness and safety. pt sat on chair. (+) SOB. O2 sat at RA 92-93% and RI : 99-104. sit<> stand training from chair x 5 reps: initial mod to max A but only needed min A for last 2 reps. completed seated LAQs x 5 BLE with 5 sec hold. positioned pt on chair. call light and table placed within reach. Gait Assessment Gait Gait Assistance Moderate Assistance,Maximum Assistance,1 Person Assist Required: Distance (Feet) 25 Able to Maintain Yes Weight Bearing Status During Gait Assistive Devices Assistive Device Gait Belt,Front Wheeled Walker Orthotic/Prosthetic No Devices or Brace: Gait Deviations General Gait Pattern Ataxic,Decreased Stride Length,Decreased Feet Clearance ,Step-to Gait Factors Limiting Gait Function Factors Limiting Decreased Activity Tolerance,Decreased Strength, Gait Function Difficulty Following Directions,Limited Range of Motion ,Poor Balance,Poor Safety Awareness M5 PT-IP Objective Assessments Start: 07/14/25 15:04 Freq: NEEDED Status: Active Protocol: Document 07/14/25 15:04 KJ (Rec: 07/14/25 15:14 KJ [id number]) Orientation Orientation/Cognition Level of Alertness Alert Orientation Name,Age,Birthday Language Function No Deficits Noted Ability Gross Range of Motion Upper Extremity ROM Impairments Unable to fully test shoulder AROM due to pain in ribs. Elbows/wrists/hands WFL Lower Extremity ROM Impairments WFL in knees and ankles Strength Upper Extremity Strength Shoulder rotation WFL bilat Elbow WFL Wrist WFL Hand WFL Lower Extremity Strength Ankle bilat ankle dorsiflex WFL M6 PT-IP Treatment Start: 07/14/25 15:04 Freq: NEEDED Status: Active Protocol: Document 07/18/25 11:40 AB (Rec: 07/18/25 12:42 AB [id number]) Physical Therapy Treatment Education Education Provided Safety Other Treatments Other Treatment BLE LAQs Performed M7 PT-IP Assessment and Plan Start: 07/14/25 15:04 Freq: NEEDED Status: Active Protocol: Document 07/18/25 11:40 AB (Rec: 07/18/25 12:42 AB [id number]) PT Summary Assessment and Plan Potential Rehabilitation Good Potential Summary Impairments Pain,ROM,Strength,Balance,Coordination,Sensation,Tone, Cognition,Bed Mobility,Transfers,Gait,Activity Tolerance Progress Towards Slow Progress due to Activity Tolerance,Slow Progress - Goals Other Assessment Summary pt improving with mobility and was able to ambulate today using FWW mod to max A and max cues ~ 25 ft. pt will require SNF rehab to improve overall strength and mobility. Goals Bed Mobility Goal Standby Assistance Transfer Goal Standby Assistance,Front Wheeled Walker Gait Goal Standby Assistance,Front Wheel Walker Gait Distance 50 Other Goals ascend/descend 2 steps w/rail w/CGA Days to Meet Goals 10 Frequency of Treatment Frequency Of Once a Day Treatment Treatment Plan Physical Therapy Bed Mobility Training,Transfer Training,Gait Training, Treatment Plan Therapeutic Exercise,Balance Retraining,Discharge Planning,Hot or Cold Pack,Neuromuscular Re-ed, Coordination Retraining Precautions Other Precautions Falls Recommendations To Nursing Amount of Assist 1 Person Assist Needed Discharge Recommendations PT Discharge SNF Rehab Recommendations Transportation Needs Private Vehicle at Discharge - PT assist 1
--- NOTE | 2025-07-18 12:41 | CM.DPNOTE ---
Addendum entered by SHARA Esquivel 07/18/25 15:33: per Cyndi at [facility], can accept. bed available at [facility] tomorrow. unsure about other two facilities. ideal admission time between 2-3pm/ RN report number [phone]. MARKETING STRATEGIST updated brother/pt. in agreement with plan. brother to pay for PP WC van transport. MARKETING STRATEGIST scheduled [facility] transport for 1pm. will call brother to pay over the phone. cost is $318. MARKETING STRATEGIST updated RN/provider. P: dc tomorrow 1pm to [facility] transport [facility]. cancel referrals with other facilities tomorrow. SHARA Esquivel Original Note: DCP note MARKETING STRATEGIST reviewed EMR per Brooke at [facility] no beds available. SNF search is as follows: [facility]: denied [facility]: no beds [facility] (f [phone] and p [phone]) referral sent. [facility] (f [phone] and p [phone]) referral sent [facility] (F [phone] and p [phone]) referral sent [facility] (f [phone] and p [phone]) referral sent. PASRR previously completed. per brother, agreeable to any SNF in [facility] P: DCP continues. Pending SNF acceptance. will continue to follow closely SHARA Esquivel
[2025-07-18 13:00] VITALS: BP 147/76; PULSE 84; RESP 18; TEMP 36.2; O2SAT 91
--- NOTE | 2025-07-18 14:25 | OT.IP.TRT ---
Current Diagnoses Rhabdomyolysis (07/13/25) Occupational Therapy Treatment Note M2 OT-IP Current Condition Start: 07/17/25 08:50 Freq: Status: Active Protocol: Document 07/17/25 08:51 PATIENCE (Rec: 07/17/25 09:07 PATIENCE Desktop) Occupational Therapy Current Condition Current Condition Evaluation Date 07/17/25 Treatment Diagnosis rhabdomyolysis, decreased self care, falls Diagnosis Onset Date 07/13/25 M3 OT- IP Subjective and Pain Start: 07/17/25 08:50 Freq: Status: Active Protocol: Document 07/18/25 14:33 [facility] (Rec: 07/18/25 14:42 CCC Desktop) OT- Subjective Occupational Therapy Visit Type Type Treatment Note Visit Start Time 13:14 Visit Stop Time 13:30 Occupational Therapy Visit Comments Patient Comments Pt not comfortable in bed and agreed to get up to reposition in the bed. Pt's brother in the room. Patient/Caregiver TO get better. Goals OT Pain Assessment Pain When Pain Assessed During Mobility Pain Present Pain Present Pain Reported Location Bilateral Ribs Pain Behaviors Facial Grimacing,Holding Area M4 OT- IP ADL's Start: 07/17/25 08:50 Freq: Status: Active Protocol: Document 07/17/25 08:51 PATIENCE (Rec: 07/17/25 09:07 PATIENCE Desktop) OT CKI-Gscs-Chctsgx General Evaluation Self-Feeding Ability Independent OT ADL-Grooming General Evaluation Grooming Ability Standby Assistance Areas Needing Retrieving/Set-up of Grooming Items Assistance Comments OT Grooming Comments Pt washes his face, hands, and prince his hair sink side on set up of supplies. Pt with forward trunk and leans on counter prn. OT ADL-Oral Care General Eval Oral Care Ability Independent Comments Oral Care Comments Pt is able to gather supplies from around the sink. Pt leans heavily on the sink while performing oral hygiene . OT ADL-Dressing General Eval Lower Body Dressing Total Assistance Ability Comments OT Dressing Comments Pt unable to assist in donning his socks or adjusting his gown. OT ADL-Toileting Comments OT Toileting not observed. Pt using a catheter at time of eval. Comments OT ADL-Bathing Comments OT Bathing Comments not observed. M5 OT- IP IADL's Start: 07/17/25 08:50 Freq: Status: Active Protocol: Document 07/17/25 08:51 PATIENCE (Rec: 07/17/25 09:07 PATIENCE Desktop) OT-Instrumental Activities of Daily Living Deficits IADL Deficits Deficits Identified Home Safety Awareness Awareness of Need Decreased Awareness for Assistance at Home Medication Management Medication Pt may need assistance on dc Management Comments Money Management Money Management Pt may need assistance on dc Comments Meal Preparation Meal Preparation Pt may need assistance on dc Comments Corporate Manager Corporate Manager Pt may need assistance on dc Comments Driving Driving Comments Pt may need assistance on dc M6 OT- IP Functional Cognition Start: 07/17/25 08:50 Freq: Status: Active Protocol: Document 07/18/25 14:33 [facility] (Rec: 07/18/25 14:42 [facility] Desktop) Cognitive Factors Limiting Selfcare Function Cognitive Comments Cognitive Assessment Pt needing vc for log rolling technique. Comments M7 OT- IP Mobility and Balance Start: 07/17/25 08:50 Freq: Status: Active Protocol: Document 07/18/25 14:33 [facility] (Rec: 07/18/25 14:42 [facility] Desktop) OT- Bed Mobility Assessment Supine to Sit Supine to Sit Assist Maximum Assistance,1 Person Assistance,Bedrails Scooting Scooting to Edge of Minimal Assistance Bed OT-Transfer Assessment Sit to and From Stand Sit to and from Moderate Assistance Stand Devices Transfer Assistive Gait Belt,Front Wheeled Walker Devices Comments Mobility Comments MAX Ax1 to get from side lying to sitting on the edge of the bed. MODA X 1 to stand and reminders to push up from the bed. Once on his feet CGA/MELIZA with FWW to take a few steps to the head of bed . MAX AX 1 to help get back into bed. Able to get wider bariatric fww for pt to use as his legs fit inside better than the standard FWW. OT- Balance Assessment Sitting Balance and Reactions Static Sitting Good Balance Ability Dynamic Sitting Fair Balance Ability Standing Balance and Reactions Static Standing Fair Balance Ability Dynamic Standing Fair Balance Ability M8 OT- IP Objective Assessments Start: 07/17/25 08:50 Freq: Status: Active Protocol: Document 07/17/25 08:51 PATIENCE (Rec: 07/17/25 09:07 PATIENCE Desktop) OT Gross Range of Motion Upper Extremity Range of Motion Assessment Within Functional Limits OT Strength Upper Extremity Strength Assessment Within Functional Limits Hand Bow Maker Strength Hand Dominance Right Comments Strength Comments Pt with 4/5 to 5/5 strength B from proximal to distal. OT-Muscle Tone Assessment Muscle Tone WNL Yes OT Sensation Assessment Edema Edema Absent M9 OT- IP Assessment and Plan Start: 07/17/25 08:50 Freq: Status: Active Protocol: Document 07/18/25 14:33 [facility] (Rec: 07/18/25 14:42 [facility] Desktop) OT Summary Assessment and Plan Potential Rehabilitation Good Potential Analytic Complexity Low at Evaluation Summary OT Impairments Strength,Balance,Functional Cognition,Functional Mobility,Grooming,Dressing,Toileting,Bathing,Toilet Transfers,Shower Transfers,Activity Tolerance Progress Towards Slow Progress due to Pain,Slow Progress due to Activity Goals Tolerance Assessment Summary Pt needing lots of assist for bed mobility needs at this time. Pt will benefit from skilled rehab to help return to prior level of MOD I with BADL's and IADL needs. Pt's main barriers are pain, steps, and decreased activity tolerance. Goals Grooming Goal Independent Dressing Goal Independent,Long Handled Shoe Horn,Feather Sawyer,Sock Aid Toileting Goal Independent Bathing Goal Independent,Grab Bars,Hand Held Shower Sprayer Toilet Transfer Goal Independent,Standard Toilet,Grab Bars Shower Transfer Goal Independent Days to Meet Goals 15 Frequency of Treatment Other frequency 5x/wk Treatment Plan OT Treatment Plan ADL Training,Functional Cognition Training,Functional Mobility,Therapeutic Exercises,Patient/Family Education ,Discharge Planning Discharge Recommendations OT Discharge SNF Rehab Recommendations Home Equipment Needs FWW, LB AE (dock guard, sock aid, long handled shoe horn) Transportation Needs Private Vehicle,Wheelchair/Cabulance at Discharge
[2025-07-18] MEDS: CALCIUM CARBONATE 500 MG TAB 1000 MG PO ×2 (14:35→19:30)
[2025-07-18] MEDS: ONDANSETRON 4 MG/2 ML INJ IV (14:35)
[2025-07-18] MEDS: FAMOTIDINE 20 MG TABLET PO (14:39)
[2025-07-18 17:00] VITALS: BP 126/79; PULSE 94; RESP 18; TEMP 35.7; O2SAT 90
[2025-07-18] MEDS: SUCRALFATE 1 GM/10 ML ORAL SUSP PO ×2 (17:50→21:28)
--- NOTE | 2025-07-18 18:38 | PC.RNWOUND ---
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 See Skin not, Skin appears to be a skin tear, surrounding tissue is blanchable but small dark area is not.
[2025-07-18 20:00] VITALS: BP 129/69; PULSE 92; RESP 18; TEMP 36.3; O2SAT 92
[2025-07-18] MEDS: METOCLOPRAMIDE 10 MG/2 ML INJ IV (21:28)
[2025-07-18] MEDS: CYCLOBENZAPRINE 10 MG TABLET 5 MG PO (23:29)
[2025-07-19] VITALS: BP 137/69; BP 137/74; PULSE 60; PULSE 92; RESP 16; RESP 18; TEMP 36.2; TEMP 36.8; O2SAT 91; O2SAT 99
[2025-07-19] MEDS: SUCRALFATE 1 GM/10 ML ORAL SUSP PO ×3 (02:35→17:44)
[2025-07-19] MEDS: METOCLOPRAMIDE 10 MG/2 ML INJ IV (06:48)
[2025-07-19 07:30] VITALS: BP 141/82; PULSE 102; RESP 14; TEMP 36.4; O2SAT 89
--- NOTE | 2025-07-19 09:43 | DI.RAD.S_ITS ---
PROCEDURE: XR KUB INDICATIONS: Distension TECHNIQUE: One view of the abdomen acquired. COMPARISON: [facility], CT, CT CHEST ABD PEL W CON, 07/13/2025, 10:47. FINDINGS: Surgical changes and devices: None. Bowel: Multiple dilated, stacked, loops of small bowel throughout the central abdomen, a new compared to 07/13/2025. No definite pneumatosis or free air. Soft tissues: No suspicious abdominal calcifications. Visualized solid organ contours appear normal in size. Bones: No suspicious bony lesions. IMPRESSION: Interval development of multiple dilated, stacked, loops of small bowel, concerning for possible ileus versus small-bowel obstruction. Dictated by: Adis Humphrey M.D. on 07/19/2025 at 12:14 Approved by: Adis Humphrey M.D. on 07/19/2025 at 12:15
[2025-07-19] MEDS: BISACODYL 10 MG SUPP PR (09:59)
--- NOTE | 2025-07-19 10:00 | PC.NURSE ---
Day shift: Pt with emesis this AM after eating his vanilla shake. Gown was changed along with bed. Pt having no complaintsw of nausea. Appears constipated with no BM in days and a distended ABD. Dr Malik made aware. X-ray ordered and will hold all PO meds until Pt has a BM. Plan is to give SUP per rectum. Call light in reach and bed/chair alarm on. Pt is HFR.
--- NOTE | 2025-07-19 12:35 | CM.DPNOTE ---
DCP Cont Patient is not ready for discharge today. Updated Cyndi at [facility] P [phone]. [facility] cannot take patient now until next week. Cyndi suggested patient admit to [facility] tomorrow- their sister facility. Discussed this plan with patient's brother Cecil P [phone] who is agreeable. Cecil is hopeful patient could transfer to [facility], closer to his family, when a bed becomes available. [facility] e me transport cancelled for today and rescheduled for 1pm continuous pickling line pickler tomorrow 07/20. CM team following closely for coordination of discharge plan. JW
[2025-07-19] MEDS: ENOXAPARIN 40 MG/0.4 ML SYRINGE SUBCUT (12:43)
[2025-07-19] MEDS: SODIUM CHLORIDE 0.9% FLUSH 10 ML IV ×2 (12:43→21:43)
--- NOTE | 2025-07-19 12:46 | P.PN_ITS ---
Subjective Subjective Interval history: Summary: 07/13:70-year-old male with a history of a Diabetes Mellitus, HTN, HLD and a memory/cognitive dysfunction who presented with Rhabdomyolysis after falling in his yard and spending the night trying to get up the 4 steps to the deck. He is quite confused and apparently suffers from a cognitive/memory disorder at baseline. He thinks that he slept on the steps or in the yard. A neighbor apparently saw him crawling around the yard this morning and called for help. He thinks that he is in [place] and thinks that his brother brought him to the hospital. The CK is 11,740 and the WBC is 21.9. The Troponin of 2.28 is attributed to the Rhabdo. He can't recall any recent illness and says that he would normally be able to climb his 4 steps to the deck without any problem. Hospital course: 07/14: He is complaining of right rib pain from his fall. We will get an x-ray. The white blood count is 11.7 with a hemoglobin of 10.9. The BNP is normal except for a CO2 of 15. The hemoglobin has dropped from 13.2 down to 10.9. The AST is 159 and the ALT is 66. The platelets have dropped from 326 down to 263. The CK level is 9267. His potassium is still good at 4.5. He is on 175 mL/hr of IV fluid. 07/15: Feeling somewhat better today but still feeling rather weak CK is down to 4000 electrolytes are in reference range. 07/16: Very weak still CK is being rechecked IV fluids discontinued S: He was having hiccups, this is unusual for him. He was abdomen is distended, he did vomit earlier. No bowel movement for several days. He denies abdominal pain. O: NAD, alert and oriented. Fluent speech. Lungs are clear, normal rate and effort. Heart is regular, no murmur gallop or rub. Abdomen is soft, distended, and hypertympanic. Extremities are free of edema. KUB: Interval development of multiple dilated, stacked, loops of small bowel, concerning for possible ileus versus small-bowel obstruction. A/P: 1. Rhabdomyolysis, present on admission, active * -secondary to prolonged immobilization and hypothermia. * -CK 11,740 on admission, down to 9267 on 07/14. Down to 4000 07/15 * -related elevation of troponin 2.2 8 likely musculoskeletal in origin * -white blood count 21.9, down to 11.7 on 07/14. * -IV fluids saline 175 mL/hr, follow creatinine, potassium and CK we will deescalate * -with initial 2 L IV bolus in the ED his creatinine dropped from 2.0 down to 1.78. Subsequently it is down to 1.24. * -potassium 5.0, then 4.5, follow closely 2. Ileus vs constipation, new. 3. Weakness/falling, present on admission. Active * -PT and OT evaluation. Head CT with prior strokes and no current bleed. 4. Previous stroke as evidenced on imaging Cognitive/Memory disorder, present on admission, chronic * -reportedly family describes that he has a very short term memory. * -CT shows: Presumed chronic prior strokes involving the posterior parietal cortex and subcortical * white matter with encephalomalacia, mild in overall severity, right greater than left. * -we will need neurology consultation as an outpatient * Secondary prevention with antiplatelet hold statin until rhabdomyolysis is resolved 5. Hypertension, present on admission, chronic * -holding lisinopril and hydrochlorothiazide, resume when appropriate. 6. Diabetes Mellitus, present on admissio, chronic * -holding metformin, follow up blood sugars and use correctional scale insulin. PLAN: -delay discharge by 24 hours. -attempt to obtain a bowel movement with Dulcolax suppositories, may consider a enema if this fails to improve the situation. -monitor hiccups. DVT prevention * with Enoxaparin Code status: * Full code blue * His brother is his backup decision maker. Exam Vital Signs (past 8 hours): - 07/19/25 07:30 Temperature 97.6 F Pulse Rate 102 H Respiratory Rate 14 Blood Pressure 141/82 H Pulse Oximetry 89 L Oxygen Flow Rate 0 Oxygen Delivery Method Room Air Oxygen Flow Rate 0 Objective Labs 07/15/25 04:45 07/15/25 04:45 Labs: Laboratory Results - last 24 hr 07/18/25 07/18/25 07/19/25 17:45 20:42 07:51 POC Whole Bld Glucose 142 H 134 H 129 H 07/19/25 11:47 POC Whole Bld Glucose 160 H [facility] Medical History (Updated 07/13/25 @ 19:00 by Louie Yates MD) Cognitive changes History of CVA (cerebrovascular accident) Hyperlipidemia HTN (hypertension) Impaired fasting glucose Social History household members: none Smoking Status: Former smoker alcohol intake: former Assessment & Plan Time-Based Coding :: [TOTAL MINUTES] spent with patient and on the chart (including review of chart, obtaining history, exam, reviewing outside data, placing orders, documenting exam and treatment plan, and counseling patient) on [DATE]. Quality VTE Deep Vein Thrombosis/Pulmonary Embolism Present on Admission: No
--- NOTE | 2025-07-19 13:16 | PC.NURSE ---
Day shift: Plan is to continue not to give any PO meds at this time per Dr Malik. We are waiting until he has a significant BM.
--- NOTE | 2025-07-19 14:20 | PT.IPTN ---
Current Diagnoses Rhabdomyolysis (07/13/25) Physical Therapy Treatment Note M2 PT-IP Current Condition Start: 07/14/25 15:04 Freq: NEEDED Status: Active Protocol: Document 07/14/25 15:04 KJ (Rec: 07/14/25 15:14 KJ [id number]) Physical Therapy Current Condition Current Condition Evaluation Date 07/14/25 Treatment Diagnosis Impaired mobility, frequent falls, rib fx Onset Date 07/13/25 M3 PT-IP Subjective Start: 07/14/25 15:04 Freq: NEEDED Status: Active Protocol: Document 07/19/25 14:20 AB (Rec: 07/19/25 15:01 AB [id number]) Subjective Physical Therapy Visit Type Type Treatment Note Visit Start Time 14:20 Visit Stop Time 14:45 Number of PLATING EQUIPMENT TENDER Visits 0 Physical Therapy Visit Comments Patient Comments agreeable to do PT M4 PT-IP Mobility and Gait Start: 07/14/25 15:04 Freq: NEEDED Status: Active Protocol: Document 07/19/25 14:20 AB (Rec: 07/19/25 15:01 AB [id number]) PT-Bed Mobility Assessment Supine to Sit Supine to Sit Maximum Assistance,2 Person Assistance,Head of Bed Elevated,Bedrails PT-Transfer Assessment Sit to and From Stand Sit to and from Moderate Assistance,1 Person Assistance,Use of Upper Stand Extremities Equipment Transfer Assistive Gait Belt,Front Wheeled Walker Device Orthotic/Prosthetic No Devices or Brace: Transfers Transfer Destination Chair Transfer Technique ambulated Transfer Ability Level of Assist Moderate Assistance,Maximum Assistance,1 Person Assistance,Use of Upper Extremities Comments Mobility Comments pt in bed and agreeable to do PT. pt suddenly threw up while supine in bed. nurse aware. pt needed max A x 2 for supine to sit with HOB elevated. pt able to sit on EOB CGA. Assisted pt for clean up and gown change. pt agreed to ambulate. sit to stand mod A and cues and ambulated in room using FWW ~ 30 ft mod to max A and max cues. pt with unsteady antalgic gait with (+) R knee buckling requiring max a and max cues for steadiness. pt sat on chair and agreed to stay on the chair. positioned pt on the chair. call light and table placed within reach. chair alarm on. nurse informed PT that pt now has SBO and will be NPO. Gait Assessment Gait Gait Assistance Moderate Assistance,Maximum Assistance Required: Distance (Feet) 30 Able to Maintain Yes Weight Bearing Status During Gait Assistive Devices Assistive Device Gait Belt,Front Wheeled Walker Orthotic/Prosthetic No Devices or Brace: Gait Deviations General Gait Pattern Decreased Stride Length,Decreased Feet Clearance Factors Limiting Gait Function Factors Limiting Decreased Activity Tolerance,Decreased Strength, Gait Function Difficulty Following Directions,Poor Balance,Poor Safety Awareness M5 PT-IP Objective Assessments Start: 07/14/25 15:04 Freq: NEEDED Status: Active Protocol: Document 07/14/25 15:04 KJ (Rec: 07/14/25 15:14 KJ [id number]) Orientation Orientation/Cognition Level of Alertness Alert Orientation Name,Age,Birthday Language Function No Deficits Noted Ability Gross Range of Motion Upper Extremity ROM Impairments Unable to fully test shoulder AROM due to pain in ribs. Elbows/wrists/hands WFL Lower Extremity ROM Impairments WFL in knees and ankles Strength Upper Extremity Strength Shoulder rotation WFL bilat Elbow WFL Wrist WFL Hand WFL Lower Extremity Strength Ankle bilat ankle dorsiflex WFL M6 PT-IP Treatment Start: 07/14/25 15:04 Freq: NEEDED Status: Active Protocol: Document 07/19/25 14:20 AB (Rec: 07/19/25 15:01 AB [id number]) Physical Therapy Treatment Education Education Provided Safety M7 PT-IP Assessment and Plan Start: 07/14/25 15:04 Freq: NEEDED Status: Active Protocol: Document 07/19/25 14:20 AB (Rec: 07/19/25 15:01 AB [id number]) PT Summary Assessment and Plan Potential Rehabilitation Fair Potential Summary Impairments Pain,ROM,Strength,Balance,Coordination,Sensation,Tone, Cognition,Bed Mobility,Transfers,Gait,Activity Tolerance Progress Towards Slow Progress due to Medical Issues,Slow Progress due Goals to Activity Tolerance Assessment Summary pt requiring max A x 2 for bed mobility and mod to max A for ambulation using FWW with (+) R knee buckling. pt will benefit from SNF rehab to improve mobility independence. Goals Bed Mobility Goal Standby Assistance Transfer Goal Standby Assistance,Front Wheeled Walker Gait Goal Standby Assistance,Front Wheel Walker Gait Distance 50 Other Goals ascend/descend 2 steps w/rail w/CGA Days to Meet Goals 10 Frequency of Treatment Frequency Of Once a Day Treatment Treatment Plan Physical Therapy Bed Mobility Training,Transfer Training,Gait Training, Treatment Plan Therapeutic Exercise,Balance Retraining,Discharge Planning,Hot or Cold Pack,Neuromuscular Re-ed, Coordination Retraining Precautions Other Precautions Falls Recommendations To Nursing Amount of Assist 1 Person Assist Needed Discharge Recommendations PT Discharge SNF Rehab Recommendations Transportation Needs Private Vehicle at Discharge - PT assist 1
[2025-07-19] MEDS: FLEETS ENEMA 1 EACH PR (14:21)
--- NOTE | 2025-07-19 15:45 | OT.IP.TRT ---
Current Diagnoses Rhabdomyolysis (07/13/25) Occupational Therapy Treatment Note M2 OT-IP Current Condition Start: 07/17/25 08:50 Freq: Status: Active Protocol: Document 07/17/25 08:51 PATIENCE (Rec: 07/17/25 09:07 PATIENCE Desktop) Occupational Therapy Current Condition Current Condition Evaluation Date 07/17/25 Treatment Diagnosis rhabdomyolysis, decreased self care, falls Diagnosis Onset Date 07/13/25 M3 OT- IP Subjective and Pain Start: 07/17/25 08:50 Freq: Status: Active Protocol: Document 07/19/25 15:47 CCC (Rec: 07/19/25 15:52 CCC Desktop) OT- Subjective Occupational Therapy Visit Type Visit Start Time 15:35 Visit Stop Time 15:45 Occupational Therapy Visit Comments Patient Comments Pt having to get back to bed. Patient/Caregiver TO get better. Goals OT Pain Assessment Pain When Pain Assessed During Mobility Pain Present Pain Present Pain Reported M4 OT- IP ADL's Start: 07/17/25 08:50 Freq: Status: Active Protocol: Document 07/17/25 08:51 PATIENCE (Rec: 07/17/25 09:07 PATIENCE Desktop) OT DLM-Wwti-Lbebxeh General Evaluation Self-Feeding Ability Independent OT ADL-Grooming General Evaluation Grooming Ability Standby Assistance Areas Needing Retrieving/Set-up of Grooming Items Assistance Comments OT Grooming Comments Pt washes his face, hands, and prince his hair sink side on set up of supplies. Pt with forward trunk and leans on counter prn. OT ADL-Oral Care General Eval Oral Care Ability Independent Comments Oral Care Comments Pt is able to gather supplies from around the sink. Pt leans heavily on the sink while performing oral hygiene . OT ADL-Dressing General Eval Lower Body Dressing Total Assistance Ability Comments OT Dressing Comments Pt unable to assist in donning his socks or adjusting his gown. OT ADL-Toileting Comments OT Toileting not observed. Pt using a catheter at time of eval. Comments OT ADL-Bathing Comments OT Bathing Comments not observed. M5 OT- IP IADL's Start: 07/17/25 08:50 Freq: Status: Active Protocol: Document 07/17/25 08:51 PATIENCE (Rec: 07/17/25 09:07 PATIENCE Desktop) OT-Instrumental Activities of Daily Living Deficits IADL Deficits Deficits Identified Home Safety Awareness Awareness of Need Decreased Awareness for Assistance at Home Medication Management Medication Pt may need assistance on dc Management Comments Money Management Money Management Pt may need assistance on dc Comments Meal Preparation Meal Preparation Pt may need assistance on dc Comments French Translator French Translator Pt may need assistance on dc Comments Driving Driving Comments Pt may need assistance on dc M6 OT- IP Functional Cognition Start: 07/17/25 08:50 Freq: Status: Active Protocol: Document 07/18/25 14:33 [facility] (Rec: 07/18/25 14:42 [facility] Desktop) Cognitive Factors Limiting Selfcare Function Cognitive Comments Cognitive Assessment Pt needing vc for log rolling technique. Comments M7 OT- IP Mobility and Balance Start: 07/17/25 08:50 Freq: Status: Active Protocol: Document 07/19/25 15:47 [facility] (Rec: 07/19/25 15:52 [facility] Desktop) OT- Bed Mobility Assessment Sit to Supine Sit to Supine Assist Maximum Assistance,1 Person Assistance OT-Transfer Assessment Sit to and From Stand Sit to and from Contact Guard Assistance Stand Transfers Transfer Ability Contact Guard Assistance,Minimal Assistance Devices Transfer Assistive Gait Belt,Front Wheeled Walker Devices Comments Mobility Comments CGA to stand and vc to lean forwards on his legs to stand up via pushing on the armrests of the recliner to stand. Once on his feet CGA with FWW and then starts to get unsteady on his feet and needing MELIZA for balance. MAXAx1 to get back into bed. OT- Balance Assessment Sitting Balance and Reactions Static Sitting Good Balance Ability Dynamic Sitting Fair Balance Ability Standing Balance and Reactions Static Standing Fair Balance Ability Dynamic Standing Poor Balance Ability M8 OT- IP Objective Assessments Start: 07/17/25 08:50 Freq: Status: Active Protocol: Document 07/17/25 08:51 PATIENCE (Rec: 07/17/25 09:07 PATIENCE Desktop) OT Gross Range of Motion Upper Extremity Range of Motion Assessment Within Functional Limits OT Strength Upper Extremity Strength Assessment Within Functional Limits Hand Vp Design Strength Hand Dominance Right Comments Strength Comments Pt with 4/5 to 5/5 strength B from proximal to distal. OT-Muscle Tone Assessment Muscle Tone WNL Yes OT Sensation Assessment Edema Edema Absent M9 OT- IP Assessment and Plan Start: 07/17/25 08:50 Freq: Status: Active Protocol: Document 07/19/25 15:47 [facility] (Rec: 07/19/25 15:52 [facility] Desktop) OT Summary Assessment and Plan Potential Rehabilitation Good Potential Analytic Complexity Low at Evaluation Summary OT Impairments Strength,Balance,Functional Cognition,Functional Mobility,Grooming,Dressing,Toileting,Bathing,Toilet Transfers,Shower Transfers,Activity Tolerance Progress Towards Slow Progress due to Pain,Slow Progress due to Medical Goals Issues,Slow Progress due to Activity Tolerance Assessment Summary Pt still awaiting to have a BM. Assisted pt back to bed and pt a bit unsteady on his feet while walking to the other side of the bed in order to get in. Pt to go to skilled rehab when medically stable. Goals Grooming Goal Independent Dressing Goal Independent,Long Handled Shoe Horn,Belt Machine Operator,Sock Aid Toileting Goal Independent Bathing Goal Independent,Grab Bars,Hand Held Shower Sprayer Toilet Transfer Goal Independent,Standard Toilet,Grab Bars Shower Transfer Goal Independent Days to Meet Goals 15 Frequency of Treatment Other frequency 5x/wk Treatment Plan OT Treatment Plan ADL Training,Functional Cognition Training,Functional Mobility,Therapeutic Exercises,Patient/Family Education ,Discharge Planning Discharge Recommendations OT Discharge SNF Rehab Recommendations Home Equipment Needs FWW, LB AE (pediatric nephrologist, sock aid, long handled shoe horn) Transportation Needs Private Vehicle,Wheelchair/Cabulance at Discharge
[2025-07-19 19:32] VITALS: BP 107/58; PULSE 99; RESP 15; TEMP 36.6; O2SAT 91
[2025-07-19] MEDS: ONDANSETRON 4 MG/2 ML INJ IV (23:10)
[2025-07-20] VITALS (10 sets, daily range): BP systolic 81–113; BP diastolic 45–61; PULSE 88–109; RESP 13–24; TEMP 35.9–36.6; O2SAT 82–94
--- NOTE | 2025-07-20 00:42 | DI.RAD.S_ITS ---
PROCEDURE: XR CHEST 1V INDICATIONS: NG tube placement TECHNIQUE: One view of the chest was acquired. COMPARISON: [facility], CT, CT CHEST ABD PEL W CON, 07/13/2025, 10:47. [facility], CR, XR RIBS RT 2V, 07/14/2025, 8:19. FINDINGS: Surgical changes and devices: Enteric tube coursing into the stomach. Lungs and pleura: Stranding at the left lung base. No pleural effusions or pneumothorax. Mediastinum: Mediastinal contours appear normal. Heart size is normal. Bones and chest wall: No suspicious bony lesions. Overlying soft tissues appear unremarkable. IMPRESSION: 1. Enteric tube coursing into the stomach. 2. Stranding at the left lung base. Favor atelectasis. Dictated by: Cordell Barnhart M.D. on 07/20/2025 at 1:58 Approved by: Cordell Barnhart M.D. on 07/20/2025 at 2:00
--- NOTE | 2025-07-20 01:02 | PC.NURSE ---
Patient up to toilet, called staff into room. Patient reporting, I dont feel well. Patient had vomited while up to chair prior. Vomit volume was a unmeasured amount. Staff members assisted patient from toilet to chair. VSS and CBG collected. See chart for details. Web-ex message sent to [facility] provider with concerns for the need for a NG tube for abd. decompression. Patient reports increased in abd. pain, abd is notably increased in distension and hard to palpate. NG tube was quite difficult to place on RT side. This nurse attempted 4 times to palce NG tube, patient kept projectile vomiting with each insertion forcing the NG tube back up. Last attempt was in the RT nares and was successful. XR ordered for confirmation of placement. We are pending the reading from [facility] provider and the okat to major appliance assembly supervisor to suction. Patient is currently draining dark brown fluid from NG tube with no suction.
--- NOTE | 2025-07-20 07:38 | DI.RAD.S_ITS ---
PROCEDURE: XR KUB INDICATIONS: Abdomen pain TECHNIQUE: One view of the abdomen acquired. COMPARISON: [facility], CR, XR KUB, 07/19/2025, 9:46. FINDINGS: Surgical changes and devices: Nasogastric tube is present projecting over the mid abdomen. Bowel: Dilated fluid-filled loops of small bowel are present. Soft tissues: No suspicious abdominal calcifications. Visualized solid organ contours appear normal in size. Bones: No suspicious bony lesions. IMPRESSION: Nasogastric tube is above. Persistent appearance of partial small bowel obstruction, although felt to be mildly improved. Dictated by: Avani Johnson M.D. on 07/20/2025 at 8:21 Approved by: Avani Johnson M.D. on 07/20/2025 at 8:22
--- NOTE | 2025-07-20 07:57 | PM.PN.1 ---
Subjective Subjective Interval history: Overnight events: Patient developed increased vomiting and abdominal distention. An NG-tube was placed with significant output. The patient has also developed hypoxemia in his now on 15 L of oxygen. Concern for aspiration. S: He was comfortable with the NG tube in place. Denies abdominal pain, hiccups have resolved. He would 1 large watery stool. O: NAD, alert and oriented. Fluent speech. NGT, O2 15 L Lungs are clear, normal rate and effort. Heart is regular, no murmur gallop or rub. Abdomen is distended. Non-tender. Extremities are free of edema. IMAGING: CXR: 1. Enteric tube coursing into the stomach. 2. Stranding at the left lung base. Favor atelectasis. CTAP: 1. Dilated loops of small bowel throughout the abdomen and pelvis with gradual transition point to decompressed bowel in the right lower quadrant, suspicious for partial versus high-grade bowel obstruction. 2. Bibasilar pulmonary consolidations in trace effusions, suspicious for pneumonia or aspiration. A/P: 1. SBO, new. 2. Hiccups, improved. 3. Possible aspiration pneumonia. 4. Rhabdomyolysis, improved. 5. HTN, stable. 6. DM 2, stable. 7. Previous CVA, stable. PLAN: -NG tube to suction -empiric antibiotics for aspiration -CT scan of the abdomen to further investigate bowel obstruction. -Surgery consult. Exam Vital Signs (past 8 hours): - 07/20/25 00:00 07/20/25 00:00 07/20/25 02:00 Temperature 96.8 F L Pulse Rate 109 H Respiratory Rate 24 18 Blood Pressure 113/61 Pulse Oximetry 92 Oxygen Delivery Method Oxygen Flow Rate 3 07/20/25 04:00 07/20/25 05:00 Temperature 97.1 F L Pulse Rate 98 H 100 H Respiratory Rate 18 15 Blood Pressure 97/51 L Pulse Oximetry 89 L 87 L Oxygen Delivery Method High Flow Nasal Cannula Oxygen Flow Rate 15 15 Oxygen Delivery Method High Flow Nasal Cannula Oxygen Flow Rate 15 Objective Labs 07/15/25 04:45 07/15/25 04:45 Labs: Laboratory Results - last 24 hr 07/19/25 07/19/25 07/19/25 07:51 11:47 17:27 POC Whole Bld Glucose 129 H 160 H 161 H 07/19/25 07/19/25 21:14 23:51 POC Whole Bld Glucose 158 H 151 H PFSH Medical History (Updated 07/13/25 @ 19:00 by Louie Yates MD) Cognitive changes History of CVA (cerebrovascular accident) Hyperlipidemia HTN (hypertension) Impaired fasting glucose Social History household members: none Smoking Status: Former smoker alcohol intake: former Assessment & Plan Time-Based Coding :: [TOTAL MINUTES] spent with patient and on the chart (including review of chart, obtaining history, exam, reviewing outside data, placing orders, documenting exam and treatment plan, and counseling patient) on [DATE]. Quality VTE Deep Vein Thrombosis/Pulmonary Embolism Present on Admission: No
--- NOTE | 2025-07-20 08:00 | DI.CT.S_ITS ---
PROCEDURE: CT ABDOMEN PELVIS W CON INDICATIONS: SBO TECHNIQUE: After the administration of intravenous contrast, axial sections acquired from the lung bases to the pubic symphysis. Coronal and sagittal reformats were performed. For radiation dose reduction, the following was used: automated exposure control, adjustment of mA and/or kV according to patient size. COMPARISON: [facility], CR, XR KUB, 07/20/2025, 7:53. [facility], CT, CT CHEST ABD PEL W CON, 07/13/2025, 10:47. FINDINGS: Image quality: Diagnostic. Lower Chest: Bibasilar consolidative opacities and trace pleural effusions. ABDOMEN: Liver: No solid mass. Gallbladder: No radiopaque gallstones or wall thickening. Biliary ducts: No biliary dilation. Pancreas: No ductal dilation. Spleen: Size is within normal limits. Adrenal Glands: No adrenal nodules. Kidneys and Ureters: No hydronephrosis. No solid mass. No complex renal cystic lesion which requires follow up. Stomach and Bowel: Enteric tube is seen with tip in the distal stomach. A few diverticula are seen in the colon without signs of acute diverticulitis. Mildly dilated loops of small bowel throughout the abdomen and pelvis with gradual transition point at the distal ileum in the right lower quadrant. Peritoneum: No abnormal intraperitoneal fluid. No free air. Ventral Wall: Mild soft tissue anasarca. Small fat containing periumbilical hernia Abdominal Nodes: No retroperitoneal or mesenteric adenopathy by size criteria. Vessels: Aorta and inferior vena cava are normal in size. Moderate aortic atherosclerotic calcifications. PELVIS: Pelvic Organs: Unremarkable. Bladder: No bladder wall thickening, accounting for underdistention. Pelvic Nodes: No enlarged lymph nodes. Miscellaneous: No inguinal hernias are seen. Bones: No aggressive osseous abnormality. IMPRESSION: 1. Dilated loops of small bowel throughout the abdomen and pelvis with gradual transition point to decompressed bowel in the right lower quadrant, suspicious for partial versus high-grade bowel obstruction. 2. Bibasilar pulmonary consolidations in trace effusions, suspicious for pneumonia or aspiration. Approved by: Valdemar Estrada M.D. on 07/20/2025 at 9:21
--- NOTE | 2025-07-20 08:41 | PT-IP ANOTE ---
Per RN, hold PT today due to decline in medical status
--- NOTE | 2025-07-20 08:44 | OT.IPNOTE ---
Per RN, pt not medically appropriate for OT today, therefore hold and check on pt tomorrow.
[2025-07-20] MEDS: PIPERACILLIN/TAZO 4.5 GM in SODIUM CHLORIDE 0.9% 100 ML IV (09:10)
[2025-07-20] MEDS: SODIUM CHLORIDE 0.9% FLUSH 10 ML IV ×2 (09:36→21:11)
[2025-07-20] MEDS: ENOXAPARIN 40 MG/0.4 ML SYRINGE SUBCUT (09:36)
--- NOTE | 2025-07-20 11:50 | PM.CN.IH.1 ---
History of Present Illness Consult details Date Patient Seen: 07/20/25 Chief complaint: Rhabdomyolysis with muscle weakness Narrative: The patient is approximately 7 days status post a fall at his house, and he spent an entire night on the ground in his backyard. He attempted to get up 4 steps were unsuccessful. He presented to [facility] with hypothermia and rhabdomyolysis. Yesterday he was noted get progressively distended and had hiccups. Workup included a KUB which showed a dilated stomach and an NG tube was placed with 4 L of gastric output recovered. Presently the patient denies any pain and/or nausea. He states he is passing some flatus and nurses states he has had 2 bowel movements today. Meds Home Medications and Allergies Home Medications ?Medication ?Instructions ?Recorded ?Confirmed ?Type clopidogrel 75 mg tablet 75 mg PO DAILY 03/28/21 07/13/25 History lisinopril 20 1 tab PO DAILY 03/28/21 07/13/25 History mg-hydrochlorothiazide 12.5 mg tablet metformin 1,000 mg tablet 1,000 mg PO BID 03/28/21 07/13/25 History omeprazole 07/13/25 07/15/25 History pioglitazone 30 mg tablet 30 mg PO DAILY 07/13/25 07/13/25 History semaglutide 14 mg tablet (Rybelsus) 14 mg PO DAILY 07/13/25 07/13/25 History ezetimibe 10 mg tablet (Zetia) 10 mg PO DAILY #30 tabs 07/17/25 Rx Allergies Allergy/AdvReac Type Severity Reaction Status Date / Time No Known Drug Allergies Allergy Verified 03/29/21 12:45 Review of Systems Review of Systems Narrative: Essentially unobtainable due to the patient's cognition challenges. Exam Vital Signs (past 8 hours): - 07/20/25 04:00 07/20/25 05:00 07/20/25 07:00 Temperature 97.1 F L Pulse Rate 98 H 100 H Respiratory Rate 18 15 Blood Pressure 97/51 L Pulse Oximetry 89 L 87 L Oxygen Delivery Method High Flow Nasal Cannula High Flow Nasal Cannula Oxygen Flow Rate 15 15 07/20/25 08:10 Temperature 97.8 F Pulse Rate 109 H Respiratory Rate 15 Blood Pressure 113/51 L Pulse Oximetry 82 L Oxygen Delivery Method Oxygen Flow Rate Oxygen Delivery Method High Flow Nasal Cannula Oxygen Flow Rate 15 Narrative Exam Narrative: The patient appears to be alert. Neck is supple and nontender Chest is clear to auscultation bilaterally and equal. Cardiac reveals a regular rate and rhythm Abdomen is shows moderate distention, soft, nontender. Bowel sounds are rare to hypoactive. Objective Labs 07/15/25 04:45 07/15/25 04:45 Labs: Laboratory Results - last 24 hr 07/19/25 07/19/25 07/19/25 11:47 17:27 21:14 POC Whole Bld Glucose 160 H 161 H 158 H 07/19/25 07/20/25 07/20/25 23:51 09:39 11:47 POC Whole Bld Glucose 151 H 132 H 146 H [facility] Medical History (Updated 07/20/25 @ 11:58 by Anthony Renee MD) Cognitive changes History of CVA (cerebrovascular accident) Hyperlipidemia HTN (hypertension) Impaired fasting glucose Social History household members: none Tobacco & Substance Use Smoking Status: Former smoker alcohol intake: former Assessment & Plan Assessment and plan (1) Acute kidney injury: Status: Acute (2) Rhabdomyolysis: Qualifiers: Rhabdomyolysis type: non-traumatic Qualified Code(s): M62.82 - Rhabdomyolysis Status: Acute (3) HTN (hypertension): Qualifiers: Hypertension type: essential hypertension Qualified Code(s): I10 - Essential (primary) hypertension Status: Acute (4) Partial small bowel obstruction: Status: Acute Plan I believe the patient's pattern is probably more consistent with a an ileus versus a partial bowel obstruction. We will order a Gastrografin upper GI series and follow serial KUBs. Time-Based Coding :: [TOTAL MINUTES] spent with patient and on the chart (including review of chart, obtaining history, exam, reviewing outside data, placing orders, documenting exam and treatment plan, and counseling patient) on [DATE]. PROFEE Charge Codes Inpatient or Observation consultation: [id number]
--- NOTE | 2025-07-20 12:00 | DI.RAD.S_ITS ---
PROCEDURE: [place] SMALL BOWEL FOLLOW THROUGH INDICATIONS: small bowel obstruction COMPARISON: [facility], CR, XR KUB, 07/20/2025, 7:53. [facility], CT, CT ABDOMEN PELVIS W CON, 07/20/2025, 8:26. FINDINGS: Enteric tube in the distal stomach. The stomach is prominent. Multiple dilated loops of small bowel. At 4 hours 30 minutes there is persistent dilated loops of small bowel. There is persistent contrast in the duodenum and scant contrast in the stomach. No significant contrast is seen in the colon. There is excreted contrast in the urinary bladder. IMPRESSION: Persistent small bowel obstruction. Dictated by: Cordell Barnhart M.D. on 07/20/2025 at 20:12 Approved by: Cordell Barnhart M.D. on 07/20/2025 at 20:17
--- NOTE | 2025-07-20 12:12 | DIET.CONS ---
Dietary Consultation Note Admission Date: 07/13/2025 14:20 Assessment: 70 y M admitted for rhabdolyolysis after fall. Dietitian screened for LOS. EMR reviewed. Developed vomiting and abd distention overnight, NGT placed. NPO now. Before NPO, pt was averaging 75-100% PO intakes from admission until 07/16. PO intakes dropped to less than 25% starting on 07/17. Hx of DM2, A1c on 07/16/25 6.0%, all POC BG recorded this admission <162 Ht: 177.8 cm Wt: 108.862 kg BMI: 34.4 UBW: 110-114 kg Last BM: 07/19/25 (07/19/25 18:00) MNA: 13 Parminder Score: 20 Diet: 07/19/25 17:05 NPO Diet Diet Modifications: NPO Type: NPO except for Ice Chips Nutrition Percent Meal Consumed 25% 07/19/25 18:00 Percent Meal Consumed 0% 07/18/25 18:00 Labs: RBC 3.25 X10^6/uL (4.5-5.9) L 07/15/25 04:45 Hgb 10.2 g/dL (13.5-17.5) L 07/15/25 04:45 Hct 29.4 % (41-53) L 07/15/25 04:45 Creatinine 0.85 mg/dL (0.66-1.25) 07/15/25 04:45 Hemoglobin A1c 6.0 % (4.0-6.0) 07/16/25 16:15 Lactate 1.2 mmol/L (0.7-2.1) 07/13/25 13:31 Nutrition Diagnosis: Inadequate oral intakes r/t altered GI function/structure aeb NPO status with SBO vs ileus Interventions: monitoring days NPO EER: 2000 kcals (MSJx1.1) 85 g protein (1g/kg adjusted IBW) Monitoring/Evaluations: days NPO Electronically Signed by: Mariana Guzman 07/20/25 12:12 Clinical Dietitian [address] [id number]
--- NOTE | 2025-07-20 14:46 | CM.DPNOTE ---
DCP Cont Patient is not medically ready for discharge today. Brother Cecil aware; tells this MARBLE MASON he is having difficulty driving due to a new arm injury. Family very hopeful patient will discharge to [facility] in [place] upon discharge. Cyndi, in admissions at [facility] aware. Updated Cyndi, no admission to [facility] today. Updated care e me transport; they will plan to call brother Cecil re payment refund. Plan: Discharge to SNF upon discharge; family hopeful for [facility] in [place] if a bed is available, cabulance vs BLS . CM team following closely for coordination. JOANNE
[2025-07-20 14:52] LABS: Hematocrit 28.2 % (41-53); Hemoglobin 9.7 g/dL (13.5-17.5); Mean Corpuscular HGB Conc 34.4 % (30-36); Mean Corpuscular Hemoglobin 30.9 PG (26-34); Mean Corpuscular Volume 90.1 fL (80-100); Platelet Count 401 X10^3/uL (150-400)
[2025-07-20] MEDS: SODIUM CHLORIDE 0.9% 1,000 ML 100 ML IV (16:29)
[2025-07-20 17:37] LABS: Alanine Aminotransferase 43 IU/L (<50); Albumin 2.9 g/dL (3.5-5.0); Albumin Globulin Ratio 1.3 (1.0-2.8); Alkaline Phosphatase 71 U/L (38-126); Blood Urea Nitrogen 50 mg/dL (9-20); Calcium 8.1 mg/dL (8.4-10.2); Carbon Dioxide 35 mmol/L (22-32); Chloride 92 mmol/L (98-107); Estimated Glomerular Filt Rate 53 mL/min (>60); Globulin 2.3 g/dL (1.7-4.1); Glucose 130 mg/dL (70-99); HEMOLYSIS < 15 (0-50); Potassium 3.4 mmol/L (3.4-5.1); Sodium 138 mmol/L (137-145); Total Protein 5.2 g/dL (6.3-8.2)
[2025-07-20] MEDS: PIPERACILLIN/TAZO 3.375 GM in SODIUM CHLORIDE 0.9% 100 ML IV (21:10)
[2025-07-20] MEDS: SUCRALFATE 1 GM/10 ML ORAL SUSP PO (21:10)
[2025-07-20] MEDS: DOCUSATE 100 MG CAPSULE PO (21:10)
[2025-07-21] VITALS (7 sets, daily range): BP systolic 98–113; BP diastolic 46–56; PULSE 87–99; RESP 16–22; TEMP 35.6–36.6; O2SAT 92–97
--- NOTE | 2025-07-21 | DI.RAD.S_ITS ---
PROCEDURE: XR ABDOMEN 1V INDICATIONS: SBO Follow-up TECHNIQUE: One view of the abdomen acquired. COMPARISON: [facility], , [place] SMALL BOWEL FOLLOW THROUGH, 07/20/2025, 13:28. FINDINGS: Intraluminal oral contrast accumulating in the rectum. No abnormally dilated loops bowel. Trace residual contrast in the stomach and small bowel. IMPRESSION: Nonobstructed bowel gas pattern. Dictated by: Brennon Devlin M.D. on 07/21/2025 at 8:35 Approved by: Brennon Devlin M.D. on 07/21/2025 at 8:36
[2025-07-21] MEDS: SUCRALFATE 1 GM/10 ML ORAL SUSP PO ×6 (01:01→21:24)
[2025-07-21] MEDS: SODIUM CHLORIDE 0.9% 1,000 ML 100 ML IV ×2 (02:03→17:28)
[2025-07-21] MEDS: PIPERACILLIN/TAZO 3.375 GM in SODIUM CHLORIDE 0.9% 100 ML IV ×3 (06:11→21:25)
--- NOTE | 2025-07-21 07:24 | P.PN_ITS ---
Subjective Subjective Interval history: Hospital course: 07/13:70-year-old male with a history of a Diabetes Mellitus, HTN, HLD and a memory/cognitive dysfunction who presented with Rhabdomyolysis after falling in his yard and spending the night trying to get up the 4 steps to the deck. He is quite confused and apparently suffers from a cognitive/memory disorder at baseline. He thinks that he slept on the steps or in the yard. A neighbor apparently saw him crawling around the yard this morning and called for help. He thinks that he is in [place] and thinks that his brother brought him to the hospital. The CK is 11,740 and the WBC is 21.9. The Troponin of 2.28 is attributed to the Rhabdo. He can't recall any recent illness and says that he would normally be able to climb his 4 steps to the deck without any problem. Hospital course: 07/14: He is complaining of right rib pain from his fall. We will get an x-ray. The white blood count is 11.7 with a hemoglobin of 10.9. The BNP is normal except for a CO2 of 15. The hemoglobin has dropped from 13.2 down to 10.9. The AST is 159 and the ALT is 66. The platelets have dropped from 326 down to 263. The CK level is 9267. His potassium is still good at 4.5. He is on 175 mL/hr of IV fluid. 07/15: Feeling somewhat better today but still feeling rather weak CK is down to 4000 electrolytes are in reference range. 07/16: Very weak still CK is being rechecked IV fluids discontinued 07/19: Discharge canceled, abdomen distended with hiccups and vomiting. KUB suggestive of ileus versus constipation. Enema given. 07/20: Worsened overnight. NG tube placed with 4 L of fluid suctioned. Gastrografin given after surgery consultation. Copious bowel movements. Patient developed hypoxia with relatively clear x-ray, Zosyn started for possible aspiration. Overnight events: He was off oxygen for a short time but is now back on. S: He would some loose stool overnight, denies pain today. No hiccups or vomiting. He was still hypertympanic and distended. He was also little bit confused today. O: Little confused, on oxygen. Breathing relatively comfortably. Lungs clear, with mild increased effort. Heart is regular. Abdomen is distended and hypertympanic but not tender or tense. Extremities with 1+ edema. IMAGING: CXR 07/21: Mild pulm edema. KUB 07/21: ntraluminal oral contrast accumulating in the rectum. No abnormally dilated loops bowel. Trace residual contrast in the stomach and small bowel. IMPRESSION: Nonobstructed bowel gas pattern. -Gastrografin: FINDINGS: Enteric tube in the distal stomach. The stomach is prominent. Multiple dilated loops of small bowel. At 4 hours 30 minutes there is persistent dilated loops of small bowel. There is persistent contrast in the duodenum and scant contrast in the stomach. No significant contrast is seen in the colon. There is excreted contrast in the urinary bladder. IMPRESSION: Persistent small bowel obstruction. -Abdomen pelvis CT on July 20: 1. Dilated loops of small bowel throughout the abdomen and pelvis with gradual transition point to decompressed bowel in the right lower quadrant, suspicious for partial versus high-grade bowel obstruction. 2. Bibasilar pulmonary consolidations in trace effusions, suspicious for pneumonia or aspiration. -Chest x-ray on July 20: 1. Enteric tube coursing into the stomach. 2. Stranding at the left lung base. Favor atelectasis. A/P: 1. SBO, new. 2. Hiccups, improved. 3. Possible aspiration pneumonia. 4. Acute hypoxic respiratory failure, new. 5. Rhabdomyolysis, improved. 6. HTN, stable. 7. DM 2, stable. 8. Previous CVA, stable. PLAN: -NG tube removed, clear liqs -empiric antibiotics for aspiration (zosyn) -Lasix 40 IV once -OOB CHINYERE: Thursday if he continues to improve. Exam Vital Signs (past 8 hours): - 07/21/25 00:00 Temperature 96.9 F L Pulse Rate 92 H Blood Pressure 100/55 L Pulse Oximetry 96 Oxygen Flow Rate 0 Oxygen Delivery Method High Flow Nasal Cannula Oxygen Flow Rate 0 Objective Labs 07/20/25 14:45 07/20/25 14:45 Labs: Laboratory Results - last 24 hr 07/20/25 07/20/25 07/20/25 09:39 11:47 14:45 WBC 13.1 H RBC 3.13 L Hgb 9.7 L Hct 28.2 L MCV 90.1 MCH 30.9 MCHC 34.4 RDW 13.5 Plt Count 401 H Sodium 138 Potassium 3.4 Chloride 92 L Carbon Dioxide 35 H BUN 50 H Creatinine 1.42 H Estimated GFR 53 L BUN/Creatinine Ratio 35.2 H Glucose 130 H POC Whole Bld Glucose 132 H 146 H Calcium 8.1 L Total Bilirubin 0.6 AST 56 ALT 43 Alkaline Phosphatase 71 Total Protein 5.2 L Albumin 2.9 L Globulin 2.3 Albumin/Globulin Ratio 1.3 07/20/25 07/20/25 16:50 21:59 WBC RBC Hgb Hct MCV MCH MCHC RDW Plt Count Sodium Potassium Chloride Carbon Dioxide BUN Creatinine Estimated GFR BUN/Creatinine Ratio Glucose POC Whole Bld Glucose 140 H 139 H Calcium Total Bilirubin AST ALT Alkaline Phosphatase Total Protein Albumin Globulin Albumin/Globulin Ratio [facility] Medical History (Updated 07/20/25 @ 11:58 by Anthony Renee MD) Cognitive changes History of CVA (cerebrovascular accident) Hyperlipidemia HTN (hypertension) Impaired fasting glucose Social History household members: none Smoking Status: Former smoker alcohol intake: former Assessment & Plan Time-Based Coding :: [TOTAL MINUTES] spent with patient and on the chart (including review of chart, obtaining history, exam, reviewing outside data, placing orders, documenting exam and treatment plan, and counseling patient) on [DATE]. Quality VTE Deep Vein Thrombosis/Pulmonary Embolism Present on Admission: No
--- NOTE | 2025-07-21 09:00 | DI.RAD.S_ITS ---
PROCEDURE: XR CHEST 1V INDICATIONS: dyspnea TECHNIQUE: One view of the chest was acquired. COMPARISON: [facility], CR, XR CHEST 1V, 07/20/2025, 0:52. FINDINGS: Surgical changes and devices: Interval removal of enteric tube. Lungs and pleura: Stable bandlike opacity in the left lower lung zone, with superimposed consolidation. Increased prominence of patchy opacity in the right lower lung zone. No pleural effusion or pneumothorax. Mediastinum: Mediastinal contours appear normal. Heart size is normal. Bones and chest wall: No suspicious bony lesions. Overlying soft tissues appear unremarkable. IMPRESSION: 1. Increased prominence of patchy opacity in the right lower lung zone, which may reflect worsening consolidation. 2. Stable bandlike opacity in the left lower lung zone, with superimposed consolidation, as seen on CT abdomen pelvis from 07/20/2025. Dictated by: Ashley Rosenthal M.D. on 07/23/2025 at 22:43 Approved by: Ashley Rosenthal M.D. on 07/23/2025 at 22:48
[2025-07-21] MEDS: CLOPIDOGREL 75 MG TABLET PO (09:40)
[2025-07-21] MEDS: DOCUSATE 100 MG CAPSULE PO ×2 (09:40→21:25)
[2025-07-21] MEDS: TAMSULOSIN 0.4 MG CAPSULE PO (09:40)
[2025-07-21] MEDS: ENOXAPARIN 40 MG/0.4 ML SYRINGE SUBCUT (09:40)
[2025-07-21] MEDS: FINASTERIDE 5 MG TABLET PO (09:41)
[2025-07-21] MEDS: SODIUM CHLORIDE 0.9% FLUSH 10 ML IV ×2 (09:42→21:26)
--- NOTE | 2025-07-21 10:40 | PT.IPTN ---
Current Diagnoses Essential (primary) hypertension (07/13/25) Partial intestinal obstruction, unspecified as to cause (07/13/25) Rhabdomyolysis (07/13/25) Acute kidney failure, unspecified (07/13/25) Physical Therapy Treatment Note M2 PT-IP Current Condition Start: 07/14/25 15:04 Freq: NEEDED Status: Active Protocol: Document 07/14/25 15:04 KJ (Rec: 07/14/25 15:14 KJ [id number]) Physical Therapy Current Condition Current Condition Evaluation Date 07/14/25 Treatment Diagnosis Impaired mobility, frequent falls, rib fx Onset Date 07/13/25 M3 PT-IP Subjective Start: 07/14/25 15:04 Freq: NEEDED Status: Active Protocol: Document 07/21/25 10:40 AB (Rec: 07/21/25 12:26 AB [id number]) Subjective Physical Therapy Visit Type Type Treatment Note Visit Start Time 10:40 Visit Stop Time 11:05 Number of CONDUIT WORKER Visits 0 M4 PT-IP Mobility and Gait Start: 07/14/25 15:04 Freq: NEEDED Status: Active Protocol: Document 07/21/25 10:40 AB (Rec: 07/21/25 12:26 AB [id number]) PT-Transfer Assessment Sit to and From Stand Sit to and from Moderate Assistance,Maximum Assistance,1 Person Stand Assistance,Use of Upper Extremities Equipment Transfer Assistive Gait Belt,Front Wheeled Walker Device Orthotic/Prosthetic No Devices or Brace: Transfers Transfer Destination Bedside Commode Transfer Technique ambulated Transfer Ability Level of Assist Moderate Assistance,1 Person Assistance,Use of Upper Extremities Comments Mobility Comments pt sitting on the chair and nurse in room. pt was about to use the commode. PT took over pt's care. pt completed sit to stand mod to max A and max cues and ambulated to the bedside commode ~ 5 ft using FWW mod A and max cues. pt needed assistance with brief management. pt with confusion/memory issues and needed cues with all tasks. pt stated that he does not know what he needs to do sitting on the bedside commode. redirected pt. sit to stand from commode mod to max A and max cues. able to stand using fWW for support mod A while nurse assisted with hygiene care. assisted pt with brief management. pt ambulated to the chair using fWW ~ 5 ft mod A and cues. doctor in to see pt. positioned pt on the chair. call light and table placed within reach . chair alarm on. Gait Assessment Gait Gait Assistance Moderate Assistance Required: Distance (Feet) 5 Able to Maintain Yes Weight Bearing Status During Gait Assistive Devices Assistive Device Gait Belt,Front Wheeled Walker Orthotic/Prosthetic No Devices or Brace: Gait Deviations General Gait Pattern Decreased Stride Length,Decreased Feet Clearance Factors Limiting Gait Function Factors Limiting Decreased Activity Tolerance,Decreased Strength, Gait Function Difficulty Following Directions,Limited Range of Motion ,Poor Balance,Poor Safety Awareness M5 PT-IP Objective Assessments Start: 07/14/25 15:04 Freq: NEEDED Status: Active Protocol: Document 07/14/25 15:04 KJ (Rec: 07/14/25 15:14 KJ [id number]) Orientation Orientation/Cognition Level of Alertness Alert Orientation Name,Age,Birthday Language Function No Deficits Noted Ability Gross Range of Motion Upper Extremity ROM Impairments Unable to fully test shoulder AROM due to pain in ribs. Elbows/wrists/hands WFL Lower Extremity ROM Impairments WFL in knees and ankles Strength Upper Extremity Strength Shoulder rotation WFL bilat Elbow WFL Wrist WFL Hand WFL Lower Extremity Strength Ankle bilat ankle dorsiflex WFL M6 PT-IP Treatment Start: 07/14/25 15:04 Freq: NEEDED Status: Active Protocol: Document 07/21/25 10:40 AB (Rec: 07/21/25 12:26 AB [id number]) Physical Therapy Treatment Education Education Provided Safety M7 PT-IP Assessment and Plan Start: 07/14/25 15:04 Freq: NEEDED Status: Active Protocol: Document 07/21/25 10:40 AB (Rec: 07/21/25 12:26 AB [id number]) PT Summary Assessment and Plan Potential Rehabilitation Fair Potential Summary Impairments Pain,ROM,Strength,Balance,Coordination,Sensation,Tone, Cognition,Bed Mobility,Transfers,Gait,Activity Tolerance Progress Towards Slow Progress due to Medical Issues,Slow Progress due Goals to Activity Tolerance,Slow Progress - Other Assessment Summary pt requiring increase assistance today. pt with change in medical status and have SBO vs ileus with symptoms started 07/19/25. pt requiring mod to max A for sit to stand and mod A for short distance ambulation using fWW. pt with decrease activity tolerance affecting mobility. pt also seems to have more confusion and memory issues today. pt will require SNF rehab to improve strength and function. Goals Bed Mobility Goal Standby Assistance Transfer Goal Standby Assistance,Front Wheeled Walker Gait Goal Standby Assistance,Front Wheel Walker Gait Distance 50 Other Goals ascend/descend 2 steps w/rail w/CGA Days to Meet Goals 10 Frequency of Treatment Frequency Of Once a Day Treatment Treatment Plan Physical Therapy Bed Mobility Training,Transfer Training,Gait Training, Treatment Plan Therapeutic Exercise,Balance Retraining,Discharge Planning,Hot or Cold Pack,Neuromuscular Re-ed, Coordination Retraining Precautions Other Precautions Falls Recommendations To Nursing Amount of Assist 1 Person Assist Needed Discharge Recommendations PT Discharge SNF Rehab Recommendations - PT assist 1
[2025-07-21] MEDS: FUROSEMIDE 40 MG/4 ML VIAL IV (11:08)
--- NOTE | 2025-07-21 11:09 | P.PN_ITS ---
Subjective Subjective Date Patient Seen: 07/21/25 Interval history: There are no new complaints. Patient had a large amount of stool and gas with the Gastrografin challenge. He has had no nausea or vomiting. Exam Vital Signs (past 8 hours): - 07/21/25 04:00 07/21/25 07:00 07/21/25 08:00 Temperature 97.8 F 96.0 F L Pulse Rate 88 87 Respiratory Rate 17 18 Blood Pressure 98/50 L 107/56 L Pulse Oximetry 96 95 Oxygen Delivery Method High Flow Nasal Cannula Oxygen Flow Rate 12 12 07/21/25 08:00 Temperature Pulse Rate Respiratory Rate Blood Pressure Pulse Oximetry 95 Oxygen Delivery Method High Flow Nasal Cannula Oxygen Flow Rate 12 Oxygen Delivery Method High Flow Nasal Cannula Oxygen Flow Rate 12 Narrative Exam Narrative: Lungs show expiratory rhonchi Cardiac reveals a regular rate and rhythm Abdomen is still distended, soft, nontender. With hypoactive high-pitched bowel sounds. Objective Imaging Abdominal x-ray: Radiologist's impression: PROCEDURE: XR ABDOMEN 1V INDICATIONS: SBO Follow-up TECHNIQUE: One view of the abdomen acquired. COMPARISON: [facility], , [place] SMALL BOWEL FOLLOW THROUGH, 07/20/2025, 13:28. FINDINGS: Intraluminal oral contrast accumulating in the rectum. No abnormally dilated loops bowel. Trace residual contrast in the stomach and small bowel. IMPRESSION: Nonobstructed bowel gas pattern. Dictated by: Brennon Devlin M.D. on 07/21/2025 at 8:35 Approved by: Brennon Devlin M.D. on 07/21/2025 at 8:36 Labs 07/20/25 14:45 07/20/25 14:45 Labs: Laboratory Results - last 24 hr 07/20/25 07/20/25 07/20/25 11:47 14:45 16:50 WBC 13.1 H RBC 3.13 L Hgb 9.7 L Hct 28.2 L MCV 90.1 MCH 30.9 MCHC 34.4 RDW 13.5 Plt Count 401 H Sodium 138 Potassium 3.4 Chloride 92 L Carbon Dioxide 35 H BUN 50 H Creatinine 1.42 H Estimated GFR 53 L BUN/Creatinine Ratio 35.2 H Glucose 130 H POC Whole Bld Glucose 146 H 140 H Calcium 8.1 L Total Bilirubin 0.6 AST 56 ALT 43 Alkaline Phosphatase 71 Total Protein 5.2 L Albumin 2.9 L Globulin 2.3 Albumin/Globulin Ratio 1.3 07/20/25 07/21/25 21:59 08:09 WBC RBC Hgb Hct MCV MCH MCHC RDW Plt Count Sodium Potassium Chloride Carbon Dioxide BUN Creatinine Estimated GFR BUN/Creatinine Ratio Glucose POC Whole Bld Glucose 139 H 147 H Calcium Total Bilirubin AST ALT Alkaline Phosphatase Total Protein Albumin Globulin Albumin/Globulin Ratio [facility] Medical History (Updated 07/20/25 @ 11:58 by Anthony Renee MD) Cognitive changes History of CVA (cerebrovascular accident) Hyperlipidemia HTN (hypertension) Impaired fasting glucose Social History household members: none Smoking Status: Former smoker alcohol intake: former Assessment & Plan Assessment and plan (1) Partial small bowel obstruction: Status: Acute Plan The suspicious partial small bowel obstruction appears to have resolved. Patient had a large response to the Gastrografin challenge. We will sign off for now and we will be available should anything change. Time-Based Coding :: [TOTAL MINUTES] spent with patient and on the chart (including review of chart, obtaining history, exam, reviewing outside data, placing orders, documenting exam and treatment plan, and counseling patient) on [DATE]. Quality VTE Deep Vein Thrombosis/Pulmonary Embolism Present on Admission: No [facility] PROFEE Obstetrics Gynecology Md Document charge(s): Yes
[2025-07-21 11:15] LABS: Hematocrit 29.4 % (41-53); Hemoglobin 9.9 g/dL (13.5-17.5); Mean Corpuscular HGB Conc 33.7 % (30-36); Mean Corpuscular Hemoglobin 30.8 PG (26-34); Mean Corpuscular Volume 91.4 fL (80-100); Platelet Count 449 X10^3/uL (150-400)
[2025-07-21 11:21] LABS: Add Manual Diff / Slide Review YES
[2025-07-21 11:32] LABS: Alanine Aminotransferase 47 IU/L (<50); Albumin 3.4 g/dL (3.5-5.0); Albumin Globulin Ratio 1.2 (1.0-2.8); Alkaline Phosphatase 74 U/L (38-126); Blood Urea Nitrogen 46 mg/dL (9-20); Calcium 7.9 mg/dL (8.4-10.2); Chloride 94 mmol/L (98-107); Estimated Glomerular Filt Rate 55 mL/min (>60); Globulin 2.8 g/dL (1.7-4.1); Glucose 135 mg/dL (70-99); HEMOLYSIS < 15 (0-50); Potassium 3.4 mmol/L (3.4-5.1); Sodium 142 mmol/L (137-145); Total Protein 6.2 g/dL (6.3-8.2)
[2025-07-21 11:37] LABS: Carbon Dioxide 37 mmol/L (22-32)
[2025-07-21 11:43] LABS: Band Neutrophils Percent 6.0 % (3-7); Eosinophils Percent Manual 3.0 % (2-4); Lymphocytes Percent Manual 17.0 % (25-45); Metamyelocytes Percent 1.0 % (-0); Monocytes Percent Manual 6.0 % (2-11); Neutrophils Absolute Manual 10366 /uL (3000-5900); Segmented Neutrophils Percent 67.0 % (38-70); Total Cells Counted 100
[2025-07-21 11:45] LABS: RBC Morphology Normal Morphology
--- NOTE | 2025-07-21 11:57 | CM.DPNOTE ---
DCP Cont Reviewed chart. Patient discussed in multidisciplinary rounds. Patient remains hypoxic, on O2 and receiving IV abx. CHINYERE 07/24. Plan remains discharge to SNF upon DC; brother Cecil prefers [facility] in [place], back up option may be their sister facility- [facility]. Social work team following clinical course closely. JOANNE
--- NOTE | 2025-07-21 12:33 | OT.IP.TRT ---
Current Diagnoses Essential (primary) hypertension (07/13/25) Partial intestinal obstruction, unspecified as to cause (07/13/25) Rhabdomyolysis (07/13/25) Acute kidney failure, unspecified (07/13/25) Occupational Therapy Treatment Note M2 OT-IP Current Condition Start: 07/17/25 08:50 Freq: Status: Active Protocol: Document 07/17/25 08:51 PATIENCE (Rec: 07/17/25 09:07 PATIENCE Chandra) Occupational Therapy Current Condition Current Condition Evaluation Date 07/17/25 Treatment Diagnosis rhabdomyolysis, decreased self care, falls Diagnosis Onset Date 07/13/25 M3 OT- IP Subjective and Pain Start: 07/17/25 08:50 Freq: Status: Active Protocol: Document 07/21/25 12:24 AMS (Rec: 07/21/25 12:33 AMS [id number]) OT- Subjective Occupational Therapy Visit Type Type Treatment Note Visit Start Time 10:20 Visit Stop Time 10:40 Occupational Therapy Visit Comments Patient Comments Pt agreeable to change of position in treatment room. OT Pain Assessment Location Bilateral Ribs Intensity 6 Scale Used Numeric (0 - 10) Description Shooting,Stabbing,Tender,With Movement Pain Behaviors Facial Grimacing,Holding Area M4 OT- IP ADL's Start: 07/17/25 08:50 Freq: Status: Active Protocol: Document 07/21/25 12:24 AMS (Rec: 07/21/25 12:33 AMS [id number]) OT [id number] General Evaluation Self-Feeding Ability Independent M5 OT- IP IADL's Start: 07/17/25 08:50 Freq: Status: Active Protocol: Document 07/17/25 08:51 PATIENCE (Rec: 07/17/25 09:07 PATIENCE Chandra) OT-Instrumental Activities of Daily Living Deficits IADL Deficits Deficits Identified Home Safety Awareness Awareness of Need Decreased Awareness for Assistance at Home Medication Management Medication Pt may need assistance on dc Management Comments Money Management Money Management Pt may need assistance on dc Comments Meal Preparation Meal Preparation Pt may need assistance on dc Comments Endless Steamer Tender Endless Steamer Tender Pt may need assistance on dc Comments Driving Driving Comments Pt may need assistance on dc M6 OT- IP Functional Cognition Start: 07/17/25 08:50 Freq: Status: Active Protocol: Document 07/21/25 12:24 AMS (Rec: 07/21/25 12:33 [facility] [id number]) Cognitive Factors Limiting Selfcare Function Cognitive Ability Level of Alertness Alert Patient Orientation Name,Age,Birthday,Month,Place,Situation Ability to Follow Able to Follow One Step Commands,Able to Follow Multi- Commands Step Commands Memory Description Short Term Intact,Working Intact Safety Awareness Underestimates Need for Assistance Cognitive Comments Cognitive Assessment Pt needing vc for log rolling technique. Comments M7 OT- IP Mobility and Balance Start: 07/17/25 08:50 Freq: Status: Active Protocol: Document 07/21/25 12:24 AMS (Rec: 07/21/25 12:33 [facility] [id number]) OT- Bed Mobility Assessment Rolling Type of Rolling Roll to Left Supine to Sit Supine to Sit Assist Minimal Assistance,1 Person Assistance OT-Transfer Assessment Sit to and From Stand Sit to and from Contact Guard Assistance,1 Person Assistance,Use of Stand Upper Extremities Technique Transfer Destination Chair Devices Transfer Assistive Gait Belt,Front Wheeled Walker Devices OT- Gait Assessment Gait Gait Assistance Standby Assistance Required: Assistive Devices Assistive Device Gait Belt,Front Wheeled Walker M8 OT- IP Objective Assessments Start: 07/17/25 08:50 Freq: Status: Active Protocol: Document 07/17/25 08:51 PATIENCE (Rec: 07/17/25 09:07 [id number] Desktop) OT Gross Range of Motion Upper Extremity Range of Motion Assessment Within Functional Limits OT Strength Upper Extremity Strength Assessment Within Functional Limits Hand Mainframe Programmer Analyst Strength Hand Dominance Right Comments Strength Comments Pt with 4/5 to 5/5 strength B from proximal to distal. OT-Muscle Tone Assessment Muscle Tone WNL Yes OT Sensation Assessment Edema Edema Absent M9 OT- IP Assessment and Plan Start: 07/17/25 08:50 Freq: Status: Active Protocol: Document 07/21/25 12:24 AMS (Rec: 07/21/25 12:33 [facility] [id number]) OT Summary Assessment and Plan Potential Rehabilitation Good Potential Analytic Complexity Low at Evaluation Summary Assessment Summary PT agreeable to stand at sink; request of toothbrush vs toothette. Unable to locate x 3 supply locations; pt to consult w/ NSG. Pt able to stand at sink w/ FWW without leaning on countertop x 3 min w/ no observable loss of balance w/ feet positioned shoulder width apart . Assistance w/ management of tubing/lines. Pt able to transfer from EOB <-> standing <-> sink <-> chair w/ SBA w/ FWW and gait belt. Fall alarm attached and requested items placed within arm's reach w/ use of bedside table. Pt to go to skilled rehab when medically stable. Goals Grooming Goal Independent Dressing Goal Independent,Long Handled Shoe Horn,Brake Operator Helper,Sock Aid Toileting Goal Independent Bathing Goal Independent,Grab Bars,Hand Held Shower Sprayer Toilet Transfer Goal Independent,Standard Toilet,Grab Bars Shower Transfer Goal Independent Days to Meet Goals 15 Frequency of Treatment Other frequency 5x/wk Treatment Plan OT Treatment Plan ADL Training,Functional Cognition Training,Functional Mobility,Therapeutic Exercises,Patient/Family Education ,Discharge Planning Discharge Recommendations OT Discharge SNF Rehab Recommendations Home Equipment Needs FWW, LB AE (flatwork finisher hand, sock aid, long handled shoe horn) Transportation Needs Private Vehicle,Wheelchair/Cabulance at Discharge
[2025-07-22] VITALS (9 sets, daily range): BP systolic 91–120; BP diastolic 53–63; PULSE 79–87; RESP 15–19; TEMP 35.9–36.6; O2SAT 91–97
[2025-07-22] MEDS: ACETAMINOPHEN 325 MG TABLET 975 MG PO ×2 (00:12→15:37)
[2025-07-22] MEDS: SUCRALFATE 1 GM/10 ML ORAL SUSP PO ×3 (01:23→10:22)
[2025-07-22] MEDS: SODIUM CHLORIDE 0.9% 1,000 ML 100 ML IV ×3 (02:49→22:32)
[2025-07-22] MEDS: PIPERACILLIN/TAZO 3.375 GM in SODIUM CHLORIDE 0.9% 100 ML IV ×3 (05:26→21:09)
[2025-07-22] MEDS: TAMSULOSIN 0.4 MG CAPSULE PO (10:21)
[2025-07-22] MEDS: CLOPIDOGREL 75 MG TABLET PO (10:21)
[2025-07-22] MEDS: ENOXAPARIN 40 MG/0.4 ML SYRINGE SUBCUT (10:22)
[2025-07-22] MEDS: FINASTERIDE 5 MG TABLET PO (10:22)
[2025-07-22] MEDS: SODIUM CHLORIDE 0.9% FLUSH 10 ML IV ×2 (10:22→21:10)
--- NOTE | 2025-07-22 11:10 | DI.RAD.S_ITS ---
PROCEDURE: XR KUB INDICATIONS: abdominal distension TECHNIQUE: One view of the abdomen acquired. COMPARISON: [facility], CR, XR KUB, 07/20/2025, 7:53. FINDINGS: Surgical changes and devices: None. Bowel: Bowel gas pattern is normal. Contrast within the colon Soft tissues: No suspicious abdominal calcifications. Visualized solid organ contours appear normal in size. Bones: No suspicious bony lesions. IMPRESSION: Nonobstructive bowel gas appearance, contrast has progressed and is seen within the colon. Dictated by: Ulises Rogers M.D. on 07/22/2025 at 11:30 Approved by: Ulises Rogers M.D. on 07/22/2025 at 11:34
--- NOTE | 2025-07-22 15:17 | PT.IPTN ---
Current Diagnoses Essential (primary) hypertension (07/13/25) Partial intestinal obstruction, unspecified as to cause (07/13/25) Rhabdomyolysis (07/13/25) Acute kidney failure, unspecified (07/13/25) Physical Therapy Treatment Note M2 PT-IP Current Condition Start: 07/14/25 15:04 Freq: NEEDED Status: Active Protocol: Document 07/14/25 15:04 KJ (Rec: 07/14/25 15:14 KJ [id number]) Physical Therapy Current Condition Current Condition Evaluation Date 07/14/25 Treatment Diagnosis Impaired mobility, frequent falls, rib fx Onset Date 07/13/25 M3 PT-IP Subjective Start: 07/14/25 15:04 Freq: NEEDED Status: Active Protocol: Document 07/22/25 15:17 AB (Rec: 07/22/25 17:46 AB Desktop) Subjective Physical Therapy Visit Type Type Treatment Note Visit Start Time 15:17 Visit Stop Time 15:27 Number of RATE SUPERVISOR Visits 0 Physical Therapy Visit Comments Patient Comments requesting to use the toilet Therapy Pain Assessment Location Bilateral Ribs Scale Used pain scale not stated Pain Management Distraction,Modification of Treatment,Timing of Techniques Activity with Medications M4 PT-IP Mobility and Gait Start: 07/14/25 15:04 Freq: NEEDED Status: Active Protocol: Document 07/22/25 15:17 AB (Rec: 07/22/25 17:46 AB Desktop) PT-Transfer Assessment Sit to and From Stand Sit to and from Moderate Assistance,1 Person Assistance,Use of Upper Stand Extremities Equipment Transfer Assistive Front Wheeled Walker Device Orthotic/Prosthetic No Devices or Brace: Transfers Transfer Destination Toilet Transfer Technique ambulated Transfer Ability Level of Assist Moderate Assistance,1 Person Assistance,Use of Upper Extremities Comments Mobility Comments checked on pt earlier in the afternoon but pt was still eating lunch. checked back on pt after ~ 1 hour and requesting to use the toilet. sit to stand mod A and ambulated to the toilet using FWW mod A and max cues. presents with unsteady gait and slight buckling of R knee. required max A for controlled descent to the toilet. pt wanting to use the toilet for awhile. call light next to pt and instructed to ask for assistance when ready. NAC aware. Gait Assessment Gait Gait Assistance Moderate Assistance,1 Person Assist Required: Distance (Feet) 12 Able to Maintain Yes Weight Bearing Status During Gait Assistive Devices Assistive Device Gait Belt,Front Wheeled Walker Orthotic/Prosthetic No Devices or Brace: Gait Deviations General Gait Pattern Antalgic,Decreased Stride Length Factors Limiting Gait Function Factors Limiting Decreased Activity Tolerance,Decreased Strength, Gait Function Difficulty Following Directions,Limited Range of Motion ,Pain,Poor Balance,Poor Safety Awareness M5 PT-IP Objective Assessments Start: 07/14/25 15:04 Freq: NEEDED Status: Active Protocol: Document 07/14/25 15:04 KJ (Rec: 07/14/25 15:14 KJ [id number]) Orientation Orientation/Cognition Level of Alertness Alert Orientation Name,Age,Birthday Language Function No Deficits Noted Ability Gross Range of Motion Upper Extremity ROM Impairments Unable to fully test shoulder AROM due to pain in ribs. Elbows/wrists/hands WFL Lower Extremity ROM Impairments WFL in knees and ankles Strength Upper Extremity Strength Shoulder rotation WFL bilat Elbow WFL Wrist WFL Hand WFL Lower Extremity Strength Ankle bilat ankle dorsiflex WFL M6 PT-IP Treatment Start: 07/14/25 15:04 Freq: NEEDED Status: Active Protocol: Document 07/22/25 15:17 AB (Rec: 07/22/25 17:46 AB Desktop) Physical Therapy Treatment Education Education Provided Safety M7 PT-IP Assessment and Plan Start: 07/14/25 15:04 Freq: NEEDED Status: Active Protocol: Document 07/22/25 15:17 AB (Rec: 07/22/25 17:46 AB Desktop) PT Summary Assessment and Plan Potential Rehabilitation Fair Potential Summary Impairments Pain Progress Towards Slow Progress due to Medical Issues,Slow Progress due Goals to Activity Tolerance Assessment Summary pt requiring mod A for transfers/ambulation using FWW and presents with unsteady gait with slight R knee buckling. pt will require SNF rehab to improve overall strength and mobility. Goals Bed Mobility Goal Standby Assistance Transfer Goal Standby Assistance,Front Wheeled Walker Gait Goal Standby Assistance,Front Wheel Walker Gait Distance 50 Other Goals ascend/descend 2 steps w/rail w/CGA Days to Meet Goals 10 Frequency of Treatment Frequency Of Once a Day Treatment Treatment Plan Physical Therapy Bed Mobility Training,Transfer Training,Gait Training, Treatment Plan Therapeutic Exercise,Balance Retraining,Discharge Planning,Hot or Cold Pack,Neuromuscular Re-ed, Coordination Retraining Precautions Other Precautions Falls Recommendations To Nursing Amount of Assist 1 Person Assist Needed Discharge Recommendations PT Discharge SNF Rehab Recommendations Transportation Needs Wheelchair/Cabulance at Discharge - PT assist 1
--- NOTE | 2025-07-22 16:00 | P.PN_ITS ---
Subjective Subjective Date Patient Seen: 07/22/25 Interval history: Chief complaint: Confusion cold exposure rhabdomyolysis weakness History of present illness: 07/13:70-year-old male with a history of a Diabetes Mellitus, HTN, HLD and a memory/cognitive dysfunction who presented with Rhabdomyolysis after falling in his yard and spending the night trying to get up the 4 steps to the deck. He is quite confused and apparently suffers from a cognitive/memory disorder at baseline. He thinks that he slept on the steps or in the yard. A neighbor apparently saw him crawling around the yard this morning and called for help. He thinks that he is in [place] and thinks that his brother brought him to the hospital. The CK is 11,740 and the WBC is 21.9. The Troponin of 2.28 is attributed to the Rhabdo. He can't recall any recent illness and says that he would normally be able to climb his 4 steps to the deck without any problem. Hospital course: 07/14: He is complaining of right rib pain from his fall. We will get an x-ray. The white blood count is 11.7 with a hemoglobin of 10.9. The BNP is normal except for a CO2 of 15. The hemoglobin has dropped from 13.2 down to 10.9. The AST is 159 and the ALT is 66. The platelets have dropped from 326 down to 263. The CK level is 9267. His potassium is still good at 4.5. He is on 175 mL/hr of IV fluid. 07/15: Feeling somewhat better today but still feeling rather weak CK is down to 4000 electrolytes are in reference range. 07/16: Very weak still CK is being rechecked IV fluids discontinued 07/17: Still very weak upon review and reflexion of this it is possible that this may have been statin myopathy so simvastatin was discontinued and in its place Zetia patient discharged to long term/memory care level of care 07/19: Discharge canceled, abdomen distended with hiccups and vomiting. KUB suggestive of ileus versus constipation. Enema given. 07/20: Worsened overnight. NG tube placed with 4 L of fluid suctioned. Gastrografin given after surgery consultation. Copious bowel movements. Patient developed hypoxia with relatively clear x-ray, Zosyn started for possible aspiration. Overnight events: He was off oxygen for a short time but is now back on. 07/21: He would some loose stool overnight, denies pain today. No hiccups or vomiting. He was still hypertympanic and distended. He was also little bit confused today. Patient is evaluated by Physical therapy we will need rehab in long term: pt requiring mod to max A for sit to stand and mod A for short distance ambulation using fWW. pt with decrease activity tolerance affecting mobility. pt also seems to have more confusion and memory issues today. pt will require SNF rehab to improve strength and function. 07/22: Tolerating diet having loose stool no further complaints Review of systems: No fever or chills Appetite improving No chest pain palpitations Nausea vomiting diarrhea The paresthesia paresis Physical exam: Disheveled elderly gentleman very pleasant somewhat confused HEENT unremarkable Neck no JVD Heart and lungs clear Abdomen is benign extremities no edema Neuro nonfocal Assessment and plan: Rhabdomyolysis, present on admission, active * Favor statin myopathy over prolonged immobilization and hypothermia. * -CK 11,740 on admission, down to 07/16 * -related elevation of troponin 2.2 8 likely musculoskeletal in origin * -white blood count 21.9, down to 11.7 on 07/14. * -IV fluids saline 175 mL/hr, completed * -with initial 2 L IV bolus in the ED his creatinine dropped from 2.0 down to 1.78. Subsequently it is down to 1.24. * -potassium 5.0, then 4.5, follow closely * Discontinue statin a substitute Zetia Weakness/falling, present on admission. Active * -PT and OT evaluation. Head CT with prior strokes and no current bleed. Ileus with small bowel unknown etiology with vomiting and possible aspiration pneumonia * Continue Zosyn brother 24 hour * Resolution of ileus clinically and on KUB 07/22 Previous stroke as evidenced on imaging Cognitive/Memory disorder, present on admission, chronic * -reportedly family describes that he has a very short term memory. * -CT shows: Presumed chronic prior strokes involving the posterior parietal cortex and subcortical * white matter with encephalomalacia, mild in overall severity, right greater than left. * -we will need neurology consultation as an outpatient * Secondary prevention with antiplatelet discontinue statin and substitute Zetia Hypertension, present on admission, chronic * Resume antihypertensives at discharge Diabetes Mellitus, present on admissio, chronic * Resume at discharge DVT prevention * with Enoxaparin Code status: * Full code blue * His brother is his backup decision maker. Disposition: * Clinically ready for discharge will need placement in long term facility and rehab * Therapy recommending SNF and provider agrees. Referral sent via RightFax to [facility] in [facility] [phone] per patient/family preference. Time based billing: * 35 minutes were involved management of this patient including [id number] evaluation physical examination of the patient review of records consultation with care team including physical therapy review of objective laboratory and imaging findings including direct visualization of cranial imaging Exam Vital Signs (past 8 hours): - 07/22/25 08:51 07/22/25 10:21 07/22/25 12:00 Temperature 97.3 F L Pulse Rate 87 84 Respiratory Rate 19 Blood Pressure 110/59 L 96/58 L Pulse Oximetry 94 96 Oxygen Delivery Method High Flow Nasal Cannula Oxygen Flow Rate 1 Fraction of Inspired Oxygen 24 SaO2/FiO2 Ratio 395 Oxygen Delivery Method High Flow Nasal Cannula Oxygen Flow Rate 1 Objective Labs 07/21/25 11:07 07/21/25 11:07 Labs: Laboratory Results - last 24 hr 07/21/25 07/21/25 07/22/25 16:13 19:33 07:55 POC Whole Bld Glucose 131 H 135 H 103 H 07/22/25 11:53 POC Whole Bld Glucose 131 H [facility] Medical History (Updated 07/20/25 @ 11:58 by Anthony Renee MD) Cognitive changes History of CVA (cerebrovascular accident) Hyperlipidemia HTN (hypertension) Impaired fasting glucose Social History household members: none Smoking Status: Former smoker alcohol intake: former Assessment & Plan Time-Based Coding :: [TOTAL MINUTES] spent with patient and on the chart (including review of chart, obtaining history, exam, reviewing outside data, placing orders, documenting exam and treatment plan, and counseling patient) on [DATE]. Quality VTE Deep Vein Thrombosis/Pulmonary Embolism Present on Admission: No
--- NOTE | 2025-07-22 16:06 | P.PN_ITS ---
Subjective Subjective Date Patient Seen: 07/18/25 Interval history: Chief complaint: Confusion cold exposure rhabdomyolysis weakness History of present illness: 07/13:70-year-old male with a history of a Diabetes Mellitus, HTN, HLD and a memory/cognitive dysfunction who presented with Rhabdomyolysis after falling in his yard and spending the night trying to get up the 4 steps to the deck. He is quite confused and apparently suffers from a cognitive/memory disorder at baseline. He thinks that he slept on the steps or in the yard. A neighbor apparently saw him crawling around the yard this morning and called for help. He thinks that he is in [place] and thinks that his brother brought him to the hospital. The CK is 11,740 and the WBC is 21.9. The Troponin of 2.28 is attributed to the Rhabdo. He can't recall any recent illness and says that he would normally be able to climb his 4 steps to the deck without any problem. Hospital course: 07/14: He is complaining of right rib pain from his fall. We will get an x-ray. The white blood count is 11.7 with a hemoglobin of 10.9. The BNP is normal except for a CO2 of 15. The hemoglobin has dropped from 13.2 down to 10.9. The AST is 159 and the ALT is 66. The platelets have dropped from 326 down to 263. The CK level is 9267. His potassium is still good at 4.5. He is on 175 mL/hr of IV fluid. 07/15: Feeling somewhat better today but still feeling rather weak CK is down to 4000 electrolytes are in reference range. 07/16: Very weak still CK is being rechecked IV fluids discontinued 07/17: Still very weak upon review and reflexion of this it is possible that this may have been statin myopathy so simvastatin was discontinued and in its place Zetia patient discharged to prison/memory care level of care 07/18: Patient unable to get transportation to prison facility Patient is evaluated by Physical therapy we will need rehab in prison: elevated HOB and pt able to get to sitting position max A x 2 and max cues. bed rail used. max A to scoot to EOB. pt needed max cues with all tasks. sit to stand from EOB max A x 2 and max cues and was able to step pivot transfer to chair using FWW max A x 2 and max cues. (+) slight B knee buckling during transfer requiring max A x 2 for stability. pt also required assist to pivot and to maneuver FWW. pt sat on the chair. agreed to stay seated on the chair. refused further activities. positioned pt on the chair. Review of systems: No fever or chills Appetite improving No chest pain palpitations Nausea vomiting diarrhea The paresthesia paresis Physical exam: Disheveled elderly gentleman very pleasant somewhat confused HEENT unremarkable Neck no JVD Heart and lungs clear Abdomen is benign extremities no edema Neuro nonfocal Assessment and plan: Rhabdomyolysis, present on admission, active * -secondary to prolonged immobilization and hypothermia. * -CK 11,740 on admission, down to 07/16 * -related elevation of troponin 2.2 8 likely musculoskeletal in origin * -white blood count 21.9, down to 11.7 on 07/14. * -IV fluids saline 175 mL/hr, follow creatinine, potassium and CK we will deescalate * -with initial 2 L IV bolus in the ED his creatinine dropped from 2.0 down to 1.78. Subsequently it is down to 1.24. * -potassium 5.0, then 4.5, follow closely * Discontinue statin a substitute Zetia Weakness/falling, present on admission. Active * -PT and OT evaluation. Head CT with prior strokes and no current bleed. Previous stroke as evidenced on imaging Cognitive/Memory disorder, present on admission, chronic * -reportedly family describes that he has a very short term memory. * -CT shows: Presumed chronic prior strokes involving the posterior parietal cortex and subcortical * white matter with encephalomalacia, mild in overall severity, right greater than left. * -we will need neurology consultation as an outpatient * Secondary prevention with antiplatelet discontinue statin and substitute Zetia Hypertension, present on admission, chronic * Resume antihypertensives at discharge Diabetes Mellitus, present on admissio, chronic * Resume at discharge DVT prevention * with Enoxaparin Code status: * Full code blue * His brother is his backup decision maker. Disposition: * Clinically ready for discharge will need placement in prison facility and rehab * Therapy recommending SNF and provider agrees. Referral sent via RightFax to [facility] in [place] F [phone] per patient/family preference. Time based billing: * 35 minutes were involved management of this patient including [id number] evaluation physical examination of the patient review of records consultation with care team including physical therapy review of objective laboratory and imaging findings including direct visualization of cranial imaging Exam Vital Signs (past 8 hours): - 07/22/25 08:51 07/22/25 10:21 07/22/25 12:00 Temperature 97.3 F L Pulse Rate 87 84 Respiratory Rate 19 Blood Pressure 110/59 L 96/58 L Pulse Oximetry 94 96 Oxygen Delivery Method High Flow Nasal Cannula Oxygen Flow Rate 1 Fraction of Inspired Oxygen 24 SaO2/FiO2 Ratio 395 Oxygen Delivery Method High Flow Nasal Cannula Oxygen Flow Rate 1 Objective Labs 07/21/25 11:07 07/21/25 11:07 Labs: Laboratory Results - last 24 hr 07/21/25 07/21/25 07/22/25 16:13 19:33 07:55 POC Whole Bld Glucose 131 H 135 H 103 H 07/22/25 11:53 POC Whole Bld Glucose 131 H [facility] Medical History (Updated 07/20/25 @ 11:58 by Anthony Renee MD) Cognitive changes History of CVA (cerebrovascular accident) Hyperlipidemia HTN (hypertension) Impaired fasting glucose Social History household members: none Smoking Status: Former smoker alcohol intake: former Assessment & Plan Time-Based Coding :: [TOTAL MINUTES] spent with patient and on the chart (including review of chart, obtaining history, exam, reviewing outside data, placing orders, documenting exam and treatment plan, and counseling patient) on [DATE]. Quality VTE Deep Vein Thrombosis/Pulmonary Embolism Present on Admission: No
--- NOTE | 2025-07-22 16:28 | CM.DPNOTE ---
DCP note LAMBSKIN TRIMMER reviewed EMR per provider, should be medically stable to dc Thu/. Per Cyndi at [facility], has beds available Thursday, would like to accept pt Thursday between 1:30-2:30 if possible. LAMBSKIN TRIMMER updated brother Cecil. very appreciative of updates. unable to drive down here now to visit with brother due to an injury. will appreciate updates on DCP as plan develops. Transport for Thursday/Thursday needed once DC date confirmed with provider. P: dc Thu vs transport pending to [facility]. PASRR done. CM team will continue to follow closely for DCP coordination SHARA Esquivel
[2025-07-23] MEDS: PIPERACILLIN/TAZO 3.375 GM in SODIUM CHLORIDE 0.9% 100 ML IV ×3 (05:18→20:16)
[2025-07-23] MEDS: CYCLOBENZAPRINE 10 MG TABLET 5 MG PO (06:29)
[2025-07-23 08:00] VITALS: BP 143/64; PULSE 88; RESP 21; TEMP 35.9; O2SAT 93
[2025-07-23 08:48] VITALS: O2SAT 93
[2025-07-23 10:11] LABS: Hematocrit 28.3 % (41-53); Hemoglobin 9.5 g/dL (13.5-17.5); Lymphocytes Absolute Auto 1400 /uL (1100-4500); Mean Corpuscular HGB Conc 33.6 % (30-36); Mean Corpuscular Hemoglobin 30.6 PG (26-34); Mean Corpuscular Volume 91.2 fL (80-100); Platelet Count 409 X10^3/uL (150-400)
[2025-07-23 10:12] LABS: Add Manual Diff / Slide Review SLIDE REVIEW
[2025-07-23 10:22] LABS: Alanine Aminotransferase 39 IU/L (<50); Albumin 2.9 g/dL (3.5-5.0); Albumin Globulin Ratio 1.0 (1.0-2.8); Alkaline Phosphatase 68 U/L (38-126); Blood Urea Nitrogen 14 mg/dL (9-20); Calcium 7.3 mg/dL (8.4-10.2); Carbon Dioxide 34 mmol/L (22-32); Chloride 99 mmol/L (98-107); Estimated Glomerular Filt Rate > 60 mL/min (>60); Globulin 2.8 g/dL (1.7-4.1); Glucose 121 mg/dL (70-99); HEMOLYSIS < 15 (0-50); Potassium 2.9 mmol/L (3.4-5.1); Sodium 138 mmol/L (137-145); Total Protein 5.7 g/dL (6.3-8.2)
[2025-07-23] MEDS: DOCUSATE 100 MG CAPSULE PO ×2 (10:30→20:16)
[2025-07-23] MEDS: TAMSULOSIN 0.4 MG CAPSULE PO (10:30)
[2025-07-23] MEDS: ENOXAPARIN 40 MG/0.4 ML SYRINGE SUBCUT (10:31)
[2025-07-23] MEDS: CLOPIDOGREL 75 MG TABLET PO (10:31)
[2025-07-23] MEDS: FINASTERIDE 5 MG TABLET PO (10:31)
[2025-07-23] MEDS: SODIUM CHLORIDE 0.9% FLUSH 10 ML IV ×2 (10:32→20:21)
--- NOTE | 2025-07-23 10:33 | PT.IPTN ---
Current Diagnoses Essential (primary) hypertension (07/13/25) Partial intestinal obstruction, unspecified as to cause (07/13/25) Rhabdomyolysis (07/13/25) Acute kidney failure, unspecified (07/13/25) Physical Therapy Treatment Note M2 PT-IP Current Condition Start: 07/14/25 15:04 Freq: NEEDED Status: Active Protocol: Document 07/14/25 15:04 KJ (Rec: 07/14/25 15:14 KJ [id number]) Physical Therapy Current Condition Current Condition Evaluation Date 07/14/25 Treatment Diagnosis Impaired mobility, frequent falls, rib fx Onset Date 07/13/25 M3 PT-IP Subjective Start: 07/14/25 15:04 Freq: NEEDED Status: Active Protocol: Document 07/23/25 10:28 KJ (Rec: 07/23/25 10:33 KJ [id number]) Subjective Physical Therapy Visit Type Type Treatment Note Visit Start Time 09:01 Visit Stop Time 09:29 Physical Therapy Visit Comments Patient Comments Feels ok sitting up in chair. Therapy Pain Assessment Pain When Pain Assessed At Rest Pain Present Pain Present Pain Reported Location Bilateral Ribs Intensity 2 M4 PT-IP Mobility and Gait Start: 07/14/25 15:04 Freq: NEEDED Status: Active Protocol: Document 07/23/25 10:28 KJ (Rec: 07/23/25 10:33 KJ [id number]) Gait Assessment Gait Gait Assistance Contact Guard Assist Required: Distance (Feet) 10 Assistive Devices Assistive Device Gait Belt,Front Wheeled Walker Gait Deviations General Gait Pattern Decreased Stride Length,Decreased Feet Clearance Factors Limiting Gait Function Factors Limiting Decreased Sensation,Decreased Strength Gait Function Comments Gait Comments Follow directions well this morning. Ambulated 10' x 3 in room on level surface. PT-Balance Assessment Sitting Balance and Reactions Static Sitting Good Balance Ability Dynamic Sitting Good Balance Ability Standing Balance and Reactions Static Standing Good Balance Ability Dynamic Standing Fair Balance Ability M5 PT-IP Objective Assessments Start: 07/14/25 15:04 Freq: NEEDED Status: Active Protocol: Document 07/23/25 10:28 KJ (Rec: 07/23/25 10:33 KJ [id number]) Orientation Orientation/Cognition Level of Alertness Alert Orientation Name,Age,Birthday,Place Language Function No Deficits Noted Ability Comments does not know day or month Gross Range of Motion Upper Extremity ROM Impairments Limited due to rib pain Lower Extremity ROM Assessment Within Functional Limits Strength Lower Extremity Strength Assessment Within Functional Limits Comments Strength Comments No buckling of knee today M6 PT-IP Treatment Start: 07/14/25 15:04 Freq: NEEDED Status: Active Protocol: Document 07/23/25 10:28 KJ (Rec: 07/23/25 10:33 KJ [id number]) Physical Therapy Treatment Exercises Exercises Ankle Pumps,Gluteal Sets,Quad Sets Education Education Provided Safety Other Treatments Other Treatment Monitored O2 sats during ambulation. Initially 94%, Performed drops to 90% after walking 10'. On 2l O2. M7 PT-IP Assessment and Plan Start: 07/14/25 15:04 Freq: NEEDED Status: Active Protocol: Document 07/23/25 10:28 KJ (Rec: 07/23/25 10:33 KJ [id number]) PT Summary Assessment and Plan Potential Rehabilitation Excellent Potential Status of Condition Evolving at Evaluation Summary Impairments Pain,Gait,Activity Tolerance Progress Towards Progressing Toward Goals Goals Assessment Summary Doing better today. Minimal c/o pain. Pleasant and conversave. Treatment Plan Other Continue to progress mobility, work on functional and Recommendations and self care tasks. Next Treatment Focus Recommendations To Nursing Amount of Assist 1 Person Assist Needed Discharge Recommendations PT Discharge SNF Rehab Recommendations Transportation Needs Wheelchair/Cabulance at Discharge
--- NOTE | 2025-07-23 11:21 | PM.PN.1 ---
Subjective Subjective Date Patient Seen: 07/23/25 Interval history: Chief complaint: Confusion cold exposure rhabdomyolysis weakness History of present illness: 07/13:70-year-old male with a history of a Diabetes Mellitus, HTN, HLD and a memory/cognitive dysfunction who presented with Rhabdomyolysis after falling in his yard and spending the night trying to get up the 4 steps to the deck. He is quite confused and apparently suffers from a cognitive/memory disorder at baseline. He thinks that he slept on the steps or in the yard. A neighbor apparently saw him crawling around the yard this morning and called for help. He thinks that he is in [place] and thinks that his brother brought him to the hospital. The CK is 11,740 and the WBC is 21.9. The Troponin of 2.28 is attributed to the Rhabdo. He can't recall any recent illness and says that he would normally be able to climb his 4 steps to the deck without any problem. Hospital course: 07/14: He is complaining of right rib pain from his fall. We will get an x-ray. The white blood count is 11.7 with a hemoglobin of 10.9. The BNP is normal except for a CO2 of 15. The hemoglobin has dropped from 13.2 down to 10.9. The AST is 159 and the ALT is 66. The platelets have dropped from 326 down to 263. The CK level is 9267. His potassium is still good at 4.5. He is on 175 mL/hr of IV fluid. 07/15: Feeling somewhat better today but still feeling rather weak CK is down to 4000 electrolytes are in reference range. 07/16: Very weak still CK is being rechecked IV fluids discontinued 07/17: Still very weak upon review and reflexion of this it is possible that this may have been statin myopathy so simvastatin was discontinued and in its place Zetia [place] [facility] level of care 07/19: Discharge canceled, abdomen distended with hiccups and vomiting. KUB suggestive of ileus versus constipation. Enema given. 07/20: Worsened overnight. NG tube placed with 4 L of fluid suctioned. Gastrografin given after surgery consultation. Copious bowel movements. Patient developed hypoxia with relatively clear x-ray, Zosyn started for possible aspiration. Overnight events: He was off oxygen for a short time but is now back on. 07/21: He would some loose stool overnight, denies pain today. No hiccups or vomiting. He was still hypertympanic and distended. He was also little bit confused today. Patient is evaluated by Physical therapy we will need rehab in [place] [facility]: pt requiring mod to max A for sit to stand and mod A for short distance ambulation using fWW. pt with decrease activity tolerance affecting mobility. pt also seems to have more confusion and memory issues today. pt will require SNF rehab to improve strength and function. 07/22: Tolerating diet having loose stool no further complaints 07/23: Tolerating diet no fevers chills no cough no shortness for breath no hypoxia Physical therapy summary and evaluation 07/23: Summary Impairments Pain,Gait,Activity Tolerance Progress Towards Progressing Toward Goals Goals Assessment Summary Doing better today. Minimal c/o pain. Pleasant and conversave. Treatment Plan Other Continue to progress mobility, work on functional and Recommendations and self care tasks. Next Treatment Focus Recommendations To Nursing Amount of Assist 1 Person Assist Needed Discharge Recommendations PT Discharge SNF Rehab Recommendations Transportation Needs Wheelchair/Cabulance at Discharge Review of systems: No fever or chills Appetite improving No chest pain palpitations Nausea vomiting diarrhea The paresthesia paresis Physical exam: Disheveled elderly gentleman very pleasant somewhat confused HEENT unremarkable Neck no JVD Heart and lungs clear Abdomen is benign extremities no edema Neuro nonfocal Assessment and plan: Rhabdomyolysis, favor statin myopathy Favor statin myopathy over prolonged immobilization and hypothermia. -CK 11,740 on admission, down to 07/16 -related elevation of troponin 2.2 8 likely musculoskeletal in origin -white blood count 21.9, down to 11.7 on 07/14. -IV fluids saline 175 mL/hr, completed -with initial 2 L IV bolus in the ED his creatinine dropped from 2.0 down to 1.78. Subsequently it is down to 1.24. -potassium 5.0, then 4.5, follow closely Discontinue statin a substitute Zetia Weakness/falling, present on admission. Active -PT and OT evaluation and recommendation Noted [place] [facility] Head [facility] with prior strokes and no current bleed. Ileus with small bowel unknown etiology with vomiting and possible aspiration pneumonia resolved Convert Zosyn to Augmentin Resolution of ileus clinically and on KUB 07/22 Previous stroke as evidenced on imaging Cognitive/Memory disorder, present on admission, chronic -reportedly family describes that he has a very short term memory. -CT shows: Presumed chronic prior strokes involving the posterior parietal cortex and subcortical white matter with encephalomalacia, mild in overall severity, right greater than left. -we will need neurology consultation as an outpatient Secondary prevention with antiplatelet discontinue statin and substitute Zetia Hypertension, present on admission, chronic Resumed antihypertensives Diabetes Mellitus, present on admissio, chronic On maintenance DVT prevention with Enoxaparin Code status: Full code blue His brother is his backup decision maker. Disposition: Clinically ready for discharge will need placement in [place] and rehab Therapy recommending SNF and provider agrees. Referral sent via Right[facility]ax to [facility] in [place] F [phone] per patient/family preference. Time based billin minutes were involved management of this patient including [id number] evaluation physical examination of the patient review of records consultation with care team including physical therapy review of objective laboratory and imaging findings including direct visualization of cranial imaging Exam Vital Signs (past 8 hours): - 07/23/25 08:00 Temperature 96.6 F L Pulse Rate 88 Respiratory Rate 21 Blood Pressure 143/64 H Pulse Oximetry 93 Fraction of Inspired Oxygen 24 SaO2/FiO2 Ratio 379 Oxygen Delivery Method Nasal Cannula Oxygen Flow Rate 1 Objective Labs 07/23/25 10:00 07/23/25 10:00 Labs: Laboratory Results - last 24 hr 07/22/25 07/22/25 07/22/25 07:55 11:53 17:02 WBC RBC Hgb Hct MCV MCH MCHC RDW Plt Count Neut % (Auto) Lymph % (Auto) [place] % (Auto) Eos % (Auto) Baso % (Auto) Neut # (Auto) Lymph # (Auto) [place] # (Auto) Eos # (Auto) Baso # (Auto) Sodium Potassium Chloride Carbon Dioxide BUN Creatinine Estimated GFR BUN/Creatinine Ratio Glucose POC Whole Bld Glucose 103 H 131 H 161 H Calcium Total Bilirubin AST ALT Alkaline Phosphatase Total Protein Albumin Globulin Albumin/Globulin Ratio 07/22/25 07/23/25 07/23/25 19:34 07:52 10:00 WBC 8.4 RBC 3.10 L Hgb 9.5 L Hct 28.3 L MCV 91.2 MCH 30.6 MCHC 33.6 RDW 13.7 Plt Count 409 H Neut % (Auto) 73.9 Lymph % (Auto) 16.5 L [place] % (Auto) 5.9 Eos % (Auto) 2.8 Baso % (Auto) 0.9 Neut # (Auto) 6200 Lymph # (Auto) 1400 [place] # (Auto) 500 Eos # (Auto) 200 Baso # (Auto) 100 Sodium 138 Potassium 2.9 L Chloride 99 Carbon Dioxide 34 H BUN 14 Creatinine 0.92 Estimated GFR > 60 BUN/Creatinine Ratio 15.2 Glucose 121 H POC Whole Bld Glucose 128 H 114 H Calcium 7.3 L Total Bilirubin 0.3 AST 37 ALT 39 Alkaline Phosphatase 68 Total Protein 5.7 L Albumin 2.9 L Globulin 2.8 Albumin/Globulin Ratio 1.0 [facility] Medical History (Updated 07/20/25 @ 11:58 by Anthony Renee MD) Cognitive changes History of CVA (cerebrovascular accident) Hyperlipidemia HTN (hypertension) Impaired fasting glucose Social History household members: none Smoking Status: Former smoker alcohol intake: former Assessment & Plan Time-Based Coding :: [TOTAL MINUTES] spent with patient and on the chart (including review of chart, obtaining history, exam, reviewing outside data, placing orders, documenting exam and treatment plan, and counseling patient) on [DATE]. Quality VTE Deep Vein Thrombosis/Pulmonary Embolism Present on Admission: No
[2025-07-23 11:42] LABS: RBC Morphology Normal Morphology
[2025-07-23 12:00] VITALS: BP 122/67; PULSE 78; RESP 18; TEMP 36.1; O2SAT 93
--- NOTE | 2025-07-23 13:29 | PC.NURSE ---
Patient is pleasantly confused, he has been up to the commode several times today and had a medium loose bm. He is more content now and resting. BT active x4.
[2025-07-23] MEDS: SODIUM CHLORIDE 0.9% 1,000 ML 100 ML IV ×2 (14:58→22:56)
--- NOTE | 2025-07-23 15:16 | CM.DPC ---
DCP Cont: Per MD, anticipates pt will be stable for discharge to SNF tomorrow 07/24. SW attempted to call [facility] cab[facility] transport company but they do not operate on Sundays and left detailed msg requesting transport tomorrow 07/24 late morning/early afternoon to ensure pt arrives at [facility] in [place] before 1430 per facility request. Per previous SW note, chavo Jacob aware of the quoted $318 cost and willing to provide payment to [facility] transport at d/c. Plan: SW to follow closely in AM with [facility] transport to confirm they have availability for cabulance to [facility] and to update [facility] in the AM as well. PASRR previously done. SHARA Woo
[2025-07-23] MEDS: POTASSIUM CHLORIDE 20 MEQ TAB 40 MEQ PO (18:23)
[2025-07-23 20:00] VITALS: BP 131/61; PULSE 92; RESP 22; TEMP 36.3; O2SAT 93
[2025-07-24] MEDS: PIPERACILLIN/TAZO 3.375 GM in SODIUM CHLORIDE 0.9% 100 ML IV (04:47)
[2025-07-24 07:00] VITALS: BP 136/76; PULSE 85; RESP 15; TEMP 36.2; O2SAT 91
--- NOTE | 2025-07-24 08:51 | PM.DS.1 ---
History of Present Illness History of Present Illness Date Patient Seen: 07/24/25 Chief complaint: Rhabdomyolysis with muscle weakness Narrative: Chief complaint: Confusion cold exposure rhabdomyolysis weakness History of present illness: 07/13:70-year-old male with a history of a Diabetes Mellitus, HTN, HLD and a memory/cognitive dysfunction who presented with Rhabdomyolysis after falling in his yard and spending the night trying to get up the 4 steps to the deck. He is quite confused and apparently suffers from a cognitive/memory disorder at baseline. He thinks that he slept on the steps or in the yard. A neighbor apparently saw him crawling around the yard this morning and called for help. He thinks that he is in [place] and thinks that his brother brought him to the hospital. The CK is 11,740 and the WBC is 21.9. The Troponin of 2.28 is attributed to the Rhabdo. He can't recall any recent illness and says that he would normally be able to climb his 4 steps to the deck without any problem. Hospital course: 07/14: He is complaining of right rib pain from his fall. We will get an x-ray. The white blood count is 11.7 with a hemoglobin of 10.9. The BNP is normal except for a CO2 of 15. The hemoglobin has dropped from 13.2 down to 10.9. The AST is 159 and the ALT is 66. The platelets have dropped from 326 down to 263. The CK level is 9267. His potassium is still good at 4.5. He is on 175 mL/hr of IV fluid. 07/15: Feeling somewhat better today but still feeling rather weak CK is down to 4000 electrolytes are in reference range. 07/16: Very weak still CK is being rechecked IV fluids discontinued 07/17: Still very weak upon review and reflexion of this it is possible that this may have been statin myopathy so simvastatin was discontinued and in its place Zetia patient [facility] to [facility] level of care 07/19: Discharge canceled, abdomen distended with hiccups and vomiting. KUB suggestive of ileus versus constipation. Enema given. 07/20: Worsened overnight. NG tube placed with 4 L of fluid suctioned. Gastrografin given after surgery consultation. Copious bowel movements. Patient developed hypoxia with relatively clear x-ray, Zosyn started for possible aspiration. Overnight events: He was off oxygen for a short time but is now back on. 07/21: He would some loose stool overnight, denies pain today. No hiccups or vomiting. He was still hypertympanic and distended. He was also little bit confused today. Patient is evaluated by Physical therapy we will need rehab [facility]: pt requiring mod to max A for sit to stand and mod A for short distance ambulation using fWW. pt with decrease activity tolerance affecting mobility. pt also seems to have more confusion and memory issues today. pt will require SNF rehab to improve strength and function. 07/22: Tolerating diet having loose stool no further complaints 07/23: Tolerating diet no fevers chills no cough no shortness for breath no hypoxia 07/24: No complaints Physical therapy summary and evaluation 07/23: Summary Impairments Pain,Gait,Activity Tolerance Progress Towards Progressing Toward Goals Goals Assessment Summary Doing better today. Minimal c/o pain. Pleasant and conversave. Treatment Plan Other Continue to progress mobility, work on functional and Recommendations and self care tasks. Next Treatment Focus Recommendations To Nursing Amount of Assist 1 Person Assist Needed Discharge Recommendations PT Discharge SNF Rehab Recommendations Transportation Needs Wheelchair/Cabulance at Discharge Review of systems: No fever or chills Appetite improving No chest pain palpitations Nausea vomiting diarrhea The paresthesia paresis Physical exam: Disheveled elderly gentleman very pleasant somewhat confused HEENT unremarkable Neck no JVD Heart and lungs clear Abdomen is benign extremities no edema Neuro nonfocal Assessment and plan: Rhabdomyolysis, favor statin myopathy Favor statin myopathy over prolonged immobilization and hypothermia. -CK 11,740 on admission, down to 07/16 -related elevation of troponin 2.2 8 likely musculoskeletal in origin -white blood count 21.9, down to 11.7 on 07/14. -IV fluids saline 175 mL/hr, completed -with initial 2 L IV bolus in the ED his creatinine dropped from 2.0 down to 1.78. Subsequently it is down to 1.24. -potassium 5.0, then 4.5, follow closely Discontinue statin a substitute Zetia Weakness/falling, present on admission. Active -PT and OT evaluation and recommendation [facility]ed [facility] Head CT with prior strokes and no current bleed. Ileus with small bowel unknown etiology with vomiting and possible aspiration pneumonia resolved Convert Zosyn to Augmentin Resolution of ileus clinically and on KUB 07/22 Previous stroke as evidenced on imaging Cognitive/Memory disorder, present on admission, chronic -reportedly family describes that he has a very short term memory. -CT shows: Presumed chronic prior strokes involving the posterior parietal cortex and subcortical white matter with encephalomalacia, mild in overall severity, right greater than left. -we will need neurology consultation as an outpatient Secondary prevention with antiplatelet discontinue statin and substitute Zetia Hypertension, present on admission, chronic Resumed antihypertensives Diabetes Mellitus, present on admissio, chronic On maintenance DVT prevention with Enoxaparin Code status: Full code blue His brother is his backup decision maker. Disposition: Clinically ready for discharge will need [facility] and rehab Therapy recommending SNF and provider agrees. [facility] [place] [phone] per patient/family preference. Time based billin minutes were involved management of this patient including [id number] evaluation physical examination of the patient review of records consultation with care team including physical therapy atory and imaging findings including direct visualization of cranial imaging Discharge Providers Provider Date of admission: 07/13/25 14:20 Discharge Date: 07/24/25 Consults: 07/13/25 23:31 Consult to Pharmacy Routine Comment: protocol 07/14/25 09:52 Consult to [facility] - Guest Room Attendant Routine Comment: Guest Room Attendant Consult needed for:: Unable to care for self Comment: Lives at home alone on [address], brother states he has been having more difficulty with his ADLs and is concerned for his safety. 07/14/25 12:56 Consult to Occupational Therapy Evaluate & Treat Comment: Physician Instructions: Evaluate and treat Consult to Physical Therapy Evaluate & Treat Comment: Physician Instructions: Evaluate and Treat 07/14/25 13:03 Consult to Home Health Routine Comment: Reason For Exam: Home Health upon DC 07/15/25 09:25 Consult to Pharmacy Routine Comment: Needs help with meds 07/20/25 09:41 Consult to General Surgery Routine Comment: Consulting Provider: Anthony Renee Reason for consultation: SBO Has provider been notified: Yes Discharge provider: Artem Serrano MD Exam Vital Signs (past 8 hours): - 07/24/25 07:00 Temperature 97.2 F L Pulse Rate 85 Respiratory Rate 15 Blood Pressure 136/76 Pulse Oximetry 91 Oxygen Flow Rate 2 Fraction of Inspired Oxygen 24 SaO2/FiO2 Ratio 379 Oxygen Delivery Method Nasal Cannula Oxygen Flow Rate 2 Objective Labs 07/23/25 10:00 07/23/25 10:00 Labs: Laboratory Results - last 24 hr 07/23/25 07/23/25 07/23/25 10:00 12:05 16:49 WBC 8.4 RBC 3.10 L Hgb 9.5 L Hct 28.3 L MCV 91.2 MCH 30.6 MCHC 33.6 RDW 13.7 Plt Count 409 H Neut % (Auto) 73.9 Lymph % (Auto) 16.5 L [place] % (Auto) 5.9 Eos % (Auto) 2.8 Baso % (Auto) 0.9 Neut # (Auto) 6200 Lymph # (Auto) 1400 [place] # (Auto) 500 Eos # (Auto) 200 Baso # (Auto) 100 RBC Morphology Normal morphology Sodium 138 Potassium 2.9 L Chloride 99 Carbon Dioxide 34 H BUN 14 Creatinine 0.92 Estimated GFR > 60 BUN/Creatinine Ratio 15.2 Glucose 121 H POC Whole Bld Glucose 105 H 106 H Calcium 7.3 L Total Bilirubin 0.3 AST 37 ALT 39 Alkaline Phosphatase 68 Total Protein 5.7 L Albumin 2.9 L Globulin 2.8 Albumin/Globulin Ratio 1.0 07/23/25 07/24/25 20:20 07:45 WBC RBC Hgb Hct MCV MCH MCHC RDW Plt Count Neut % (Auto) Lymph % (Auto) [place] % (Auto) Eos % (Auto) Baso % (Auto) Neut # (Auto) Lymph # (Auto) [place] # (Auto) Eos # (Auto) Baso # (Auto) RBC Morphology Sodium Potassium Chloride Carbon Dioxide BUN Creatinine Estimated GFR BUN/Creatinine Ratio Glucose POC Whole Bld Glucose 128 H 97 Calcium Total Bilirubin AST ALT Alkaline Phosphatase Total Protein Albumin Globulin Albumin/Globulin Ratio [facility] Medical History (Updated 07/20/25 @ 11:58 by Anthony Renee MD) Cognitive changes History of CVA (cerebrovascular accident) Hyperlipidemia HTN (hypertension) Impaired fasting glucose Social History household members: none Smoking Status: Former smoker alcohol intake: former Discharge Plan Discharge Plan Patient Disposition: SNF Discharge orders & Medications Prescriptions: New ezetimibe [Zetia] 10 mg tablet 10 mg PO DAILY Qty: 30 0RF Continued (DME) omeprazole 20 tablet 0 .ROUTE .MEDSUPPLY pioglitazone 30 mg tablet 30 mg PO DAILY Rybelsus 14 mg tablet 14 mg PO DAILY clopidogrel 75 mg tablet 75 mg PO DAILY lisinopril-hydrochlorothiazide 20-12.5 mg tablet 1 tab PO DAILY metformin 1,000 mg tablet 1,000 mg PO BID Discontinued simvastatin 40 mg tablet 40 mg PO BEDTIME Visit Report/Discharge Packet Stand Alone Forms: Patient Portal/API Quality VTE Deep Vein Thrombosis/Pulmonary Embolism Present on Admission: No
[2025-07-24] MEDS: CLOPIDOGREL 75 MG TABLET PO (09:04)
[2025-07-24] MEDS: DOCUSATE 100 MG CAPSULE PO (09:04)
[2025-07-24] MEDS: FINASTERIDE 5 MG TABLET PO (09:04)
[2025-07-24] MEDS: ACETAMINOPHEN 325 MG TABLET 975 MG PO (09:04)
[2025-07-24 09:05] VITALS: BP 136/76; PULSE 85
[2025-07-24] MEDS: ENOXAPARIN 40 MG/0.4 ML SYRINGE SUBCUT (09:06)
--- NOTE | 2025-07-24 09:12 | CM.DPNOTE ---
Addendum entered by SHARA Nevarez 07/24/25 12:51: ADD: [facility] has had phone trouble today, this SW was able to get in touch via email communication, [email or web address], spoke with Josef. Josef scheduled patient's [facility] van transport for tomorrow 07/25 at 1230. Brother Cecil paid last week. Josef asks that the oncoming DC Midwife call [facility] first at P [phone], if that does not go through, use email. Plan: Discharge to [facility] anticipated 07/25 via [facility] (already paid). Update Cyndi at [facility] and brother Cecil tomorrow AM. Original Note: DCP Cont Patient has been discharged to SNF today. Placed call to Cyndi at [facility] F [phone] P [phone] they cannot accept patient today- They have a bed available for patient tomorrow. Faxed updated clinical per Cyndi's request. Updated provider. Updated bedside RN. Updated brother Cecil P [phone] who remains very appreciative for updates and the efforts to get patient to [facility]. Cecil is injured and not driving far, looks forward to seeing patient when he gets to [facility]. Attempting to reach [facility]- multiple calls have been unsuccessful. According to brother Cecil- [facility] already has the $ for this transport, provided payment last week. CM team following closely for coordination efforts. JOANNE
[2025-07-24] MEDS: TAMSULOSIN 0.4 MG CAPSULE PO (17:25)
[2025-07-24 19:00] VITALS: BP 137/77; PULSE 94; RESP 18; TEMP 36.2; O2SAT 91
[2025-07-24] MEDS: SODIUM CHLORIDE 0.9% FLUSH 10 ML IV (21:00)
[2025-07-24 21:20] VITALS: PULSE 91; O2SAT 90
[2025-07-25 07:00] VITALS: BP 114/71; PULSE 93; RESP 15; TEMP 36.2; O2SAT 94
[2025-07-25] MEDS: INSULIN LISPRO 100 UNIT/ML 3ML VIAL SUBCUT (08:23)
--- NOTE | 2025-07-25 09:03 | P.DS_ITS ---
History of Present Illness History of Present Illness Date Patient Seen: 07/25/25 Chief complaint: Rhabdomyolysis with muscle weakness Narrative: * Chief complaint: Confusion cold exposure rhabdomyolysis weakness History of present illness: 07/13:70-year-old male with a history of a Diabetes Mellitus, HTN, HLD and a memory/cognitive dysfunction who presented with Rhabdomyolysis after falling in his yard and spending the night trying to get up the 4 steps to the deck. He is quite confused and apparently suffers from a cognitive/memory disorder at baseline. He thinks that he slept on the steps or in the yard. A neighbor apparently saw him crawling around the yard this morning and called for help. He thinks that he is in [place] and thinks that his brother brought him to the hospital. The CK is 11,740 and the WBC is 21.9. The Troponin of 2.28 is attributed to the Rhabdo. He can't recall any recent illness and says that he would normally be able to climb his 4 steps to the deck without any problem. Hospital course: 07/14: He is complaining of right rib pain from his fall. We will get an x-ray. The white blood count is 11.7 with a hemoglobin of 10.9. The BNP is normal except for a CO2 of 15. The hemoglobin has dropped from 13.2 down to 10.9. The AST is 159 and the ALT is 66. The platelets have dropped from 326 down to 263. The CK level is 9267. His potassium is still good at 4.5. He is on 175 mL/hr of IV fluid. 07/15: Feeling somewhat better today but still feeling rather weak CK is down to 4000 electrolytes are in reference range. 07/16: Very weak still CK is being rechecked IV fluids discontinued 07/17: Still very weak upon review and reflexion of this it is possible that this may have been statin myopathy so simvastatin was discontinued and in its place Zetia patient discharged to [facility]/memory care level of care 07/19: Discharge canceled, abdomen distended with hiccups and vomiting. KUB suggestive of ileus versus constipation. Enema given. 07/20: Worsened overnight. NG tube placed with 4 L of fluid suctioned. Gastrografin given after surgery consultation. Copious bowel movements. Patient developed hypoxia with relatively clear x-ray, Zosyn started for possible aspiration. Overnight events: He was off oxygen for a short time but is now back on. 07/21: He would some loose stool overnight, denies pain today. No hiccups or vomiting. He was still hypertympanic and distended. He was also little bit confused today. Patient is evaluated by Physical therapy we will need rehab in [facility]: pt requiring mod to max A for sit to stand and mod A for short distance ambulation using fWW. pt with decrease activity tolerance affecting mobility. pt also seems to have more confusion and memory issues today. pt will require SNF rehab to improve strength and function. 07/22: Tolerating diet having loose stool no further complaints 07/23: Tolerating diet no fevers chills no cough no shortness for breath no hypoxia 07/24: No complaints 07/25: No new complaints no changes still awaiting [facility] placement Physical therapy summary and evaluation 07/23: Summary Impairments Pain,Gait,Activity Tolerance Progress Towards Progressing Toward Goals Goals Assessment Summary Doing better today. Minimal c/o pain. Pleasant and conversave. Treatment Plan Other Continue to progress mobility, work on functional and Recommendations and self care tasks. Next Treatment Focus Recommendations To Nursing Amount of Assist 1 Person Assist Needed Discharge Recommendations PT Discharge SNF Rehab Recommendations Transportation Needs Wheelchair/Cabulance at Discharge Review of systems: No fever or chills Appetite improving No chest pain palpitations Nausea vomiting diarrhea The paresthesia paresis Physical exam: Disheveled elderly gentleman very pleasant somewhat confused HEENT unremarkable Neck no JVD Heart and lungs clear Abdomen is benign extremities no edema Neuro nonfocal Assessment and plan: Rhabdomyolysis, favor statin myopathy * Favor statin myopathy over prolonged immobilization and hypothermia. * -CK 11,740 on admission, down to 07/16 * -related elevation of troponin 2.2 8 likely musculoskeletal in origin * -white blood count 21.9, down to 11.7 on 07/14. * -IV fluids saline 175 mL/hr, completed * -with initial 2 L IV bolus in the ED his creatinine dropped from 2.0 down to 1.78. Subsequently it is down to 1.24. * -potassium 5.0, then 4.5, follow closely * Discontinue statin a substitute Zetia Weakness/falling, present on admission. Active * -PT and OT evaluation and recommendation Noted [facility] placement * Head CT with prior strokes and no current bleed. Ileus with small bowel unknown etiology with vomiting and possible aspiration pneumonia resolved * Convert Zosyn to Augmentin * Resolution of ileus clinically and on KUB 07/22 Previous stroke as evidenced on imaging Cognitive/Memory disorder, present on admission, chronic * -reportedly family describes that he has a very short term memory. * -CT shows: Presumed chronic prior strokes involving the posterior parietal cortex and subcortical * white matter with encephalomalacia, mild in overall severity, right greater than left. * -we will need neurology consultation as an outpatient * Secondary prevention with antiplatelet discontinue statin and substitute Zetia Hypertension, present on admission, chronic * Resumed antihypertensives Diabetes Mellitus, present on admissio, chronic * On maintenance DVT prevention * with Enoxaparin Code status: * Full code blue * His brother is his backup decision maker. Disposition: * Clinically ready for discharge will need placement in [facility] facility and rehab * Therapy recommending SNF and provider agrees. Referral sent via RightFax to [facility] in [facility] [phone] per patient/family preference. Time based billing: * 35 minutes were involved management of this patient including [id number] evaluation physical examination of the patient review of records consultation with care team including physical therapy Discharge Providers Provider Date of admission: 07/13/25 14:20 Discharge Date: 07/25/25 Consults: 07/13/25 23:31 Consult to Pharmacy Routine Comment: protocol 07/14/25 09:52 Consult to MANAGER INTENSIVE [facility]ARE UNIT - Internal Security Manager Routine Comment: Internal Security Manager Consult needed for:: Unable to care for self Comment: Lives at home alone on [address], brother states he has been having more difficulty with his ADLs and is concerned for his safety. 07/14/25 12:56 Consult to Occupational Therapy Evaluate & Treat Comment: Physician Instructions: Evaluate and treat Consult to Physical Therapy Evaluate & Treat Comment: Physician Instructions: Evaluate and Treat 07/14/25 13:03 Consult to Home Health Routine Comment: Reason For Exam: Home Health upon DC 07/15/25 09:25 Consult to Pharmacy Routine Comment: Needs help with meds 07/20/25 09:41 Consult to General Surgery Routine Comment: Consulting Provider: Anthony Renee Reason for consultation: SBO Has provider been notified: Yes Discharge provider: Artem Serrano MD Exam Vital Signs (past 8 hours): Fraction of Inspired Oxygen 28 SaO2/FiO2 Ratio 321 Oxygen Delivery Method High Flow Nasal Cannula,Humidification Oxygen Flow Rate 2 Objective Labs 07/23/25 10:00 07/23/25 10:00 Labs: Laboratory Results - last 24 hr 07/24/25 07/24/25 07/24/25 11:48 16:41 20:58 POC Whole Bld Glucose 119 H 113 H 107 H 07/25/25 07:19 POC Whole Bld Glucose 136 H COUNT INCLUDES THE [facility] Medical History (Updated 07/20/25 @ 11:58 by Anthony Renee MD) Cognitive changes History of CVA (cerebrovascular accident) Hyperlipidemia HTN (hypertension) Impaired fasting glucose Social History household members: none Smoking Status: Former smoker alcohol intake: former Discharge Plan Discharge Plan Patient Disposition: SNF Discharge orders & Medications Prescriptions: New ezetimibe [Zetia] 10 mg tablet 10 mg PO DAILY Qty: 30 0RF Continued (DME) omeprazole 20 tablet 0 .ROUTE .MEDSUPPLY pioglitazone 30 mg tablet 30 mg PO DAILY Rybelsus 14 mg tablet 14 mg PO DAILY clopidogrel 75 mg tablet 75 mg PO DAILY lisinopril-hydrochlorothiazide 20-12.5 mg tablet 1 tab PO DAILY metformin 1,000 mg tablet 1,000 mg PO BID Discontinued simvastatin 40 mg tablet 40 mg PO BEDTIME Visit Report/Discharge Packet Stand Alone Forms: Patient Portal/API Quality VTE Deep Vein Thrombosis/Pulmonary Embolism Present on Admission: No
[2025-07-25] MEDS: FINASTERIDE 5 MG TABLET PO (10:58)
[2025-07-25] MEDS: CLOPIDOGREL 75 MG TABLET PO (10:58)
[2025-07-25] MEDS: TAMSULOSIN 0.4 MG CAPSULE PO (10:58)
[2025-07-25] MEDS: ENOXAPARIN 40 MG/0.4 ML SYRINGE SUBCUT (10:58)
--- NOTE | 2025-07-25 13:02 | PC.NURSE ---
Discharge instructions given and understood. Facility called and nursing report given. PIV removed. Pt discharged with facility's staff.
--- NOTE | 2025-08-18 20:08 | PM.PN.1 ---
Subjective Subjective Date Patient Seen: 07/18/25 Interval history: Chief complaint: Confusion cold exposure rhabdomyolysis weakness History of present illness: 07/13:70-year-old male with a history of a Diabetes Mellitus, HTN, HLD and a memory/cognitive dysfunction who presented with Rhabdomyolysis after falling in his yard and spending the night trying to get up the 4 steps to the deck. He is quite confused and apparently suffers from a cognitive/memory disorder at baseline. He thinks that he slept on the steps or in the yard. A neighbor apparently saw him crawling around the yard this morning and called for help. He thinks that he is in [place] and thinks that his brother brought him to the hospital. The CK is 11,740 and the WBC is 21.9. The Troponin of 2.28 is attributed to the Rhabdo. He can't recall any recent illness and says that he would normally be able to climb his 4 steps to the deck without any problem. Hospital course: 07/14: He is complaining of right rib pain from his fall. We will get an x-ray. The white blood count is 11.7 with a hemoglobin of 10.9. The BNP is normal except for a CO2 of 15. The hemoglobin has dropped from 13.2 down to 10.9. The AST is 159 and the ALT is 66. The platelets have dropped from 326 down to 263. The CK level is 9267. His potassium is still good at 4.5. He is on 175 mL/hr of IV fluid. 07/15: Feeling somewhat better today but still feeling rather weak CK is down to 4000 electrolytes are in reference range. 07/16: Very weak still CK is being rechecked IV fluids discontinued 07/17: Still very weak upon review and reflexion of this it is possible that this may have been statin myopathy so simvastatin was discontinued and in its place Zetia [place] [facility] level of care 07/18: [facility] Patient is evaluated by Physical therapy we will need rehab in [facility]: elevated HOB and pt able to get to sitting position max A x 2 and max cues. bed rail used. max A to scoot to EOB. pt needed max cues with all tasks. sit to stand from EOB max A x 2 and max cues and was able to step pivot transfer to chair using FWW max A x 2 and max cues. (+) slight B knee buckling during transfer requiring max A x 2 for stability. pt also required assist to pivot and to maneuver FWW. pt sat on the chair. agreed to stay seated on the chair. refused further activities. positioned pt on the chair. Review of systems: No fever or chills Appetite improving No chest pain palpitations Nausea vomiting diarrhea The paresthesia paresis Physical exam: Disheveled elderly gentleman very pleasant somewhat confused HEENT unremarkable Neck no JVD Heart and lungs clear Abdomen is benign extremities no edema Neuro nonfocal Assessment and plan: Rhabdomyolysis, present on admission, active -secondary to prolonged immobilization and hypothermia. -CK 11,740 on admission, down to 07/16 -related elevation of troponin 2.2 8 likely musculoskeletal in origin -white blood count 21.9, down to 11.7 on 07/14. -IV fluids saline 175 mL/hr, follow creatinine, potassium and CK we will deescalate -with initial 2 L IV bolus in the ED his creatinine dropped from 2.0 down to 1.78. Subsequently it is down to 1.24. -potassium 5.0, then 4.5, follow closely Discontinue statin a substitute Zetia Weakness/falling, present on admission. Active -PT and OT evaluation. Head CT with prior strokes and no current bleed. Previous stroke as evidenced on imaging Cognitive/Memory disorder, present on admission, chronic -reportedly family describes that he has a very short term memory. -CT shows: Presumed chronic prior strokes involving the posterior parietal cortex and subcortical white matter with encephalomalacia, mild in overall severity, right greater than left. -we will need neurology consultation as an outpatient Secondary prevention with antiplatelet discontinue statin and substitute Zetia Hypertension, present on admission, chronic Resume antihypertensives at discharge Diabetes Mellitus, present on admissio, chronic Resume at discharge DVT prevention with Enoxaparin Code status: Full code blue His brother is his backup decision maker. Disposition: Clinically ready for discharge will need placement in [facility] and rehab Therapy recommending SNF and provider agrees. Referral sent via RightFax to [facility] in [place] F [phone] per patient/family preference. Time based billin minutes were involved management of this patient including [id number] evaluation physical examination of the patient review of records consultation with care team including physical therapy review of objective laboratory and imaging findings including direct visualization of cranial imaging Exam Vital Signs (past 8 hours): Fraction of Inspired Oxygen 28 SaO2/FiO2 Ratio 321 Oxygen Delivery Method High Flow Nasal Cannula,Humidification Oxygen Flow Rate 2 Objective Labs 07/23/25 10:00 07/23/25 10:00 [facility] Medical History (Updated 07/20/25 @ 11:58 by Anthony Renee MD) Cognitive changes History of CVA (cerebrovascular accident) Hyperlipidemia HTN (hypertension) Impaired fasting glucose Social History household members: none Smoking Status: Former smoker alcohol intake: former Assessment & Plan Time-Based Coding :: [TOTAL MINUTES] spent with patient and on the chart (including review of chart, obtaining history, exam, reviewing outside data, placing orders, documenting exam and treatment plan, and counseling patient) on [DATE]. Quality VTE Deep Vein Thrombosis/Pulmonary Embolism Present on Admission: No
== END 2025-07-25 12:50 | DRG 557 ==
LOC: ED 13:54 → AC 14:31 → ICU 18:19 → AC 07-14 13:28 → ICU 07-14 13:28 → AC 07-15 12:40
PROVIDERS: Hospitalist; Internal Medicine; Admitting Provider Family Medicine; Emergency Provider Emergency Medicine; Referring Provider Emergency Medicine; Visit Provider Family Medicine
DX: M62.82 Rhabdomyolysis (principal); J69.0 Pneumonitis due to inhalation of food and vomit; J96.01 Acute respiratory failure with hypoxia; K56.600 Partial intestinal obstruction, unspecified as to cause; N17.9 Acute kidney failure, unspecified; K56.7 Ileus, unspecified; T68.XXXA Hypothermia, initial encounter; R41.3 Other amnesia; I10 Essential (primary) hypertension; E11.9 Type 2 diabetes mellitus without complications; R07.89 Other chest pain; R53.1 Weakness; G72.89 Other specified myopathies; E78.5 Hyperlipidemia, unspecified; W18.30XA Fall on same level, unspecified, initial encounter; X31.XXXA Exposure to excessive natural cold, initial encounter; Y92.096 Garden or yard of other non-institutional residence as the place of occurrence of the external cause; Z87.891 Personal history of nicotine dependence; Z79.84 Long term (current) use of oral hypoglycemic drugs; Z86.73 Personal history of transient ischemic attack (TIA), and cerebral infarction without residual deficits; Z79.02 Long term (current) use of antithrombotics/antiplatelets; Z23 Encounter for immunization
CPT/HCPCS: 36415; 70450; 70496; 70498; 70551; 71045; 71100; 71260; 74018; 74177; 74250; 80048; 80053; 80305; 80320; 81001; 82550; 82962; 83036; 83605; 84145; 84484; 85007; 85025; 85027; 85610; 85730; 87040; 87797; 90471; 93005; 93010; 96361; 96365; 96375; 97116; 97162; 97165; 97530; 99285; 90715; A9270; J1650; J1815; J1938; J2405; J2543; J2765; J3360; J7030; J7050; Q9967